=== PATIENT | female | born 1955 | race African-American/Black ===

== ENCOUNTER → 2016-10-25 | Outpatient (CLI) | payer MEDICAID ==
[2016-06-26 02:26] VITALS: BP 121/74
== END ==
LOC: LAB 11:59
PROVIDERS: ATTEND Nurse Practitioner Family
DX: R56.9 Unspecified convulsions (principal)
CPT/HCPCS: 36415; 80185

== ENCOUNTER → 2016-11-07 | Outpatient (CLI) | payer MEDICAID ==
[2016-06-26 02:26] VITALS: BP 121/74
== END ==
LOC: RT 09:31
PROVIDERS: ATTEND Nurse Practitioner Family
DX: R56.9 Unspecified convulsions (principal)
CPT/HCPCS: 95819

== ENCOUNTER 2016-11-22 12:57 | Emergency (ER) | payer MEDICAID ==
[2016-11-22 13:19] VITALS: BP 125/81; BMI 36.3
[2016-11-22] MEDS ORDERED: D50W ABBOJECT SYR IV ONE (13:19)
--- NOTE | 2016-11-22 13:26 | DR.HYPOGLY ---
HPI - Time Seen Time seen: 13:23 - PCP Primary Care Physician: CHRISTINA - Complaint Chief Complaint:: PT BROUGHT IN BY EMS. EMS STATES PT'S BS NOTED TO BE 40. PT HAS FALLEN AND HIT HER HEAD, NECK, AND RT SHOULDER. EMS ADMINISTERED ORAL GLUCOSE. - Nurses notes reviewed Nurses Notes Review: Yes - Source History Provided: Family Member, EMS - Mode of Arrival Mode of Arrival: EMS - Timing Onset of Chief Complaint: 11/22/16 Came on: Suddenly - Duration Duration: Constant How lon Duration: Minutes - Severity Blood sugar (if known): 40 - Context [place]: Found disoriented Symptoms: Confusion History of: Diabetes Prehospital care: Glucagon - Modifying factors Improves: D50 - Associated signs and symptoms Associated signs and symptoms: None - Other History Other history: complaint of right shoulder, head and neck pain PMH - PMH Past Medical History: Yes Past Medical History: Arthritis, CVA, Dyslipidemia, Gout, Hypertension, Seizures Past Surgical History: Yes 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 - Family History History of Family Medical Conditions: Yes Family Medical History: Hypertension - Social History Does any household member use tobacco: No Alcohol Use: None Do you use any recreational Drugs:: No Lives With: Family Lives Where: Home - infectious screening In the last 2 months have you had wt loss of >10#?: NO Have you had fever, night sweats or hemotysis?: No Have you traveled outside the country in the last 6 months?: No Isolation: Standard ROS - Review of Systems Constitutional: No Symptoms Reported Eyes: No Symptoms Reported ENTM: No Symptoms Reported Respiratoy: No Symptoms Reported Cardiovascular: No Symptoms Reported Gastrointestinal/Abdominal: No Symptoms Reported Genitourinary: No Symptoms Reported Neurological: No Symptoms Reported Musculoskeletal: Neck Pain, Shoulder (right shoulder pain from fall) Integumentary: No Symptoms Reported Hematologic/Lymphatic: No Symptoms Reported Endocrine: No Symptoms Reported Psychiatric: Depression PE - Vital Signs Vitals: Temperature 97.6 F Pulse Rate 64 Respiratory Rate 16 Blood Pressure [Right Arm] 138/84 Blood Pressure [Left Arm] 121/74 Blood Pressure 125/81 O2 Sat by Pulse Oximetry 98 - General Limitations: No Limitations General Appearance: Alert - Eyes Eye exam: Normal Appearance, EOMI. negative: Scleral Icterus, Conjunctival Injection Pupils: Regular, Round: Bilateral Sclera/Conjunctival: Normal Inspection: Bilateral - ENT ENT Exam: Normal Exam Nose Exam: Normal Nose Exam Mouth Exam: Normal Inspection Throat Exam: Normal Inspection - Neck Neck Exam: Normal Inspection, Full ROM, Trachea Midline - Chest Chest Inspection: Normal Inspection - Respiratory Respiratory Exam: negative: Accessory Muscle Use, Respiratory Distress Respiratory Exam: Bilateral Clear to Auscultation - Cardiovascular Cardiovascular Exam: Regular Rate - Abdominal Exam Abdominal Exam: Normal Inspection - Extremities Extremities Exam: Normal Inspection, Full ROM - Neurologic Neurological Exam: Alert, Oriented X3, CN II-XII Intact Patient Oriented To: Person, Place, Time Cranial Nerve Exam: EOM Function (II, III, IV, ): Normal, Facial Palsy (VII): Normal, Gag reflex (XI): Normal, Spinal Accessory Function (XI): Normal - Psychiatric Psychiatric Exam: Depressed - Skin Skin Exam: Intact, Normal Color Course - Treatment Treatment: glucose at 104 prior to D50. ROR - XRAY XRAY Interpreted by: Radiologist XRAY Findings: CT head,neck no fx or bleed. Right shoulder no fx - Diagnosis Discharge Problem: Hypoglycemia Contusion Qualifiers: Encounter type: initial encounter Contusion area: head Contusion of head detail : scalp Qualified Code(s): S00.03XA - Contusion of scalp, initial encounter - Discharge Plan Condition: Stable Prescriptions: Ibuprofen [Motrin Tab 800 mg] 800 mg PO Q8H PRN #30 tab PRN Reason: Pain/Inflammation - Follow ups/Referrals Follow ups/Referrals: Sunni Emery [Primary Care Provider] - 3 days - Instructions
--- NOTE | 2016-11-22 13:52 | RAD ---
Right shoulder three views Indication: Pain after fall. Findings: There is no cortical lucency or malalignment. The glenohumeral acromioclavicular joints ar e intact. Impression: No acute right shoulder fracture. Mild degenerative changes present. Reported By:
--- NOTE | 2016-11-22 14:05 | CT ---
STUDY: CT HEAD WITHOUT CONTRAST HISTORY: Fall. Hit head. COMPARISON: June 25, 2016. TECHNIQUE: Multiple axial images of the head were obtained from the skull base to the vertex without administration of IV contrast. Automated exposure control (AEC) was utilized to adjust the MA and/o r kV. Findings: The sulci, cisterns and ventricles are prominent consistent with diffuse volume loss. There are confluent and scattered foci of low attenuation in the periventricular and subcortical whi te matter of both hemispheres. This is a nonspecific finding which likely represents microangiopathi c change in a patient of this age. There are old lacunar infarcts in the basal ganglia bilaterally. There is no evidence of acute miya torial infarction, hemorrhage, mass, mass effect or midline shift. There are no abnormal extra-axial fluid collections. There is no evidence of acute osseous abnormality or significant soft tissue swelling. IMPRESSION: 1. No evidence of acute intracranial abnormality. 2. Nonspecific white matter change and volume loss as described. 3. Old lacunar infarcts in the basal ganglia bilaterally. 4. If there remains strong clinical concern for acute intracranial abnormality, then an MRI examinat ion should be considered for further evaluation. Reported By:
[2016-11-22] MEDS ORDERED: D50W ABBOJECT SYR ONE (14:11)
--- NOTE | 2016-11-22 14:56 | CT ---
HISTORY: Neck pain and injury. Study: CT cervical spine without contrast Comparison: none. Technique: Multiple axial images of the C-spine were obtained without the administration of IV cont rast. Sagittal and coronal reformats were performed and reviewed. Findings: There is straightening/reversal of the normal cervical lordosis No evidence for acute fracture or s ubluxation can be identified. No central canal compromise by bony osteophyte formation or soft tiss ue components can be identified. There is mild to moderate, diffuse, cervical spondylosis and diffus e, mild to moderate cervical facet joint DJD observed. No locked facet joint is seen. There is no vi sible subluxation or posterior element abnormality of the cervical spine. No lytic bony lesions or e ndplate erosive changes are seen. The surrounding paraspinous and C-spine soft tissues are unremarka ble in their noncontrasted appearance. IMPRESSION: 1. Negative CT exam of the cervical spine for compression fracture or subluxation. 2. Mild to moderate cervical spondylosis and degenerative facet joint DJD. Reported By:
== END 2016-11-22 15:40 | disposition home or self-care (01) ==
LOC: ER 12:57
DX: S00.03XA Contusion of scalp, initial encounter (principal); E16.2 Hypoglycemia, unspecified; M47.812 Spondylosis without myelopathy or radiculopathy, cervical region; W19.XXXA Unspecified fall, initial encounter; Y92.9 Unspecified place or not applicable; R51 Headache
CPT/HCPCS: 70450; 72125; 73030; 96365; 96374; 99283; A4222; J3490

== ENCOUNTER → 2016-11-28 | Outpatient (CLI) | payer MEDICAID ==
[2016-11-22 13:19] VITALS: BP 125/81
[2016-11-28 10:55] LABS: BASOPHILS % (AUTO) 0.7 % (0.2-1.0); EOSINOPHILS # (AUTO) 0.1 x10^3/uL (0.0-0.2); EOSINOPHILS % (AUTO) 2.1 % (0.9-2.9); HEMOGLOBIN 12.7 g/dL (12.0-16.0); LYMPHOCYTES # (AUTO) 2.5 X10^3/uL (1.3-2.9); LYMPHOCYTES % (AUTO) 38.6 % (21.0-51.0); MEAN CORPUSCULAR HEMOGLOBIN 31.9 pg (27.0-34.0); MEAN CORPUSCULAR HGB CONC 32.5 g/dL (33.0-35.0); MEAN CORPUSCULAR VOLUME 98.2 fL (80.0-100.0); MEAN PLATELET VOLUME 9.6 fL (7.4-11.0); MONOCYTES # (AUTO) 0.6 x10^3/uL (0.3-0.8); MONOCYTES % (AUTO) 9.4 % (0.0-13.0); NEUTROPHILS # (AUTO) 3.1 x10^3/uL (2.2-4.8); NEUTROPHILS % (AUTO) 49.2 % (42.0-75.0); PLATELET COUNT 165 X10^3/uL (150.0-450.0); RED BLOOD COUNT 3.97 X10^6/uL (3.5-5.4); RED CELL DISTRIBUTION WIDTH 14.6 % (11.6-16.5); WHITE BLOOD COUNT 6.4 X10^3/uL (3.6-10.0)
[2016-11-28 11:08] LABS: ALANINE AMINOTRANSFERASE 14 Units/L (12-78); ALBUMIN 2.7 g/dL (3.4-5.0); ALKALINE PHOSPHATASE 205 Units/L (46-116); ASPARTATE AMINO TRANSFERASE 16 Units/L (15-37); BLOOD UREA NITROGEN 12 mg/dL (7-18); CALCIUM 8.8 mg/dL (8.5-10.1); CHLORIDE 106 mmol/L (98-107); CHOL/HDL RATIO 4.3 (0.0-5.0); CHOLESTEROL 192 mg/dL (0-200); COR CA(FOR HYPOALB) 9.8 mg/dL (8.5-10.1); CREATININE 0.81 mg/dL (0.55-1.02); GLUCOSE 91 mg/dL (65-99); HDL CHOLESTEROL 45 mg/dL (40-60); SODIUM 144 mmol/L (136-145); TRIGLYCERIDES 64 mg/dL (0-150); URIC ACID 2.9 mg/dL (2.6-6.0); eGFR BLACK RACES > 60 (>60); eGFR NON BLACK RACES > 60 (>60)
== END ==
LOC: LAB 10:31
PROVIDERS: ATTEND Nurse Practitioner Family
DX: D52.0 Dietary folate deficiency anemia (principal); I10 Essential (primary) hypertension; E56.8 Deficiency of other vitamins; E78.2 Mixed hyperlipidemia; G40.802 Other epilepsy, not intractable, without status epilepticus; Z87.39 Personal history of other diseases of the musculoskeletal system and connective tissue; Z86.73 Personal history of transient ischemic attack (TIA), and cerebral infarction without residual deficits
CPT/HCPCS: 36415; 80053; 80061; 80185; 82306; 84550; 85025; 85610

== ENCOUNTER 2017-02-26 20:24 | Emergency (ER) | payer MEDICAID ==
[2017-02-26 20:41] VITALS: BP 115/68; BMI 29.1
--- NOTE | 2017-02-26 20:44 | DR.GENAD ---
HPI - PCP Primary Care Physician: ERNESTOLS - Complaint/Symptoms Chief Complaint Doctors Comments: She denies fever. She denies cardiopulmonary disease. Chief Complaint:: CHEST PAIN FOR LAST 2 DAYS, NAUSEA, STOMACH HURTS, CHILLS, SOB. PATIENT TENDER WHEN CHEST PALPATED. 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 - Family History History of Family Medical Conditions: Yes Family Medical History: Hypertension - Social History Do you use any recreational Drugs:: No Lives Where: Home - infectious screening Have you traveled outside the country in the last 6 months?: No Isolation: Standard ROS - Review of Systems Constitutional: negative: Diaphoresis Eyes: No Symptoms Reported ENTM: No Symptoms Reported Respiratoy: No Symptoms Reported Cardiovascular: No Symptoms Reported Gastrointestinal/Abdominal: No Symptoms Reported Genitourinary: No Symptoms Reported Neurological: No Symptoms Reported Musculoskeletal: No Symptoms Reported Integumentary: No Symptoms Reported Hematologic/Lymphatic: No Symptoms Reported Endocrine: No Symptoms Reported Psychiatric: No Symptoms Reported All Other Systems: Reviewed and Negative PE - Vital Signs Vitals: Temperature 99.0 F Pulse Rate 75 Respiratory Rate 16 Blood Pressure [Right Arm] 138/84 Blood Pressure [Left Arm] 121/74 Blood Pressure 115/68 O2 Sat by Pulse Oximetry 100 - General Limitations: No Limitations General Appearance: Alert, In No Apparent Distress - Head Head Exam: Normal Inspection, Atraumatic - Eyes Eye exam: Normal Appearance, PERRL, EOMI - ENT ENT Exam: Normal Exam, Normal Oropharynx External Ear Exam: Normal External Inspection TM/Canal Exam: Bilateral Normal Nose Exam: Normal Nose Exam Mouth Exam: Normal Inspection, Drooling Throat Exam: Normal Inspection - Neck Neck Exam: Normal Inspection, Full ROM - Chest Chest Inspection: Normal Inspection, Symmetric Chest Wall Rise - Respiratory Respiratory Exam: Normal Lung Sounds Bilat Respiratory Exam: Bilateral Clear to Auscultation - Cardiovascular Cardiovascular Exam: Regular Rate, Normal Rhythm - Abdominal Exam Abdominal Exam: Normal Inspection, Normal Bowel Sounds Abdominal Tenderness: negative: RUQ, RLQ, LUQ, LLQ, Epigastrium, Suprapubic, Diffuse, Mild, Moderate, Severe, Other - Back Back Exam: Normal Inspection - Neurologic Neurological Exam: Alert, Oriented X3, CN II-XII Intact - Psychiatric Psychiatric Exam: Normal Affect, Normal Mood - Skin Skin Exam: Warm, Dry, Intact Course - Reevaluation 1st: Unchanged ROR - Labs Reviewed Result Diagrams: 02/26/17 20:59 02/26/17 20:59 Laboratory: WBC 7.6 X10^3/uL (3.6-10.0) 02/26/17 20:59 RBC 4.07 X10^6/uL (3.5-5.4) 02/26/17 20:59 Hgb 13.4 g/dL (12.0-16.0) 02/26/17 20:59 Hct 40.2 % (36.0-47.0) 02/26/17 20:59 MCV 98.9 fL (80.0-100.0) 02/26/17 20:59 MCH 32.8 pg (27.0-34.0) 02/26/17 20:59 MCHC 33.2 g/dL (33.0-35.0) 02/26/17 20:59 RDW 13.9 % (11.6-16.5) 02/26/17 20:59 Plt Count 167 X10^3/uL (150.0-450.0) 02/26/17 20:59 MPV 10.4 fL (7.4-11.0) 02/26/17 20:59 Neut % 44.1 % (42.0-75.0) 02/26/17 20:59 Lymph % 40.0 % (21.0-51.0) 02/26/17 20:59 [place] % 12.5 % (0.0-13.0) 02/26/17 20:59 Eos % 2.8 % (0.9-2.9) 02/26/17 20:59 Baso % 0.6 % (0.2-1.0) 02/26/17 20:59 Neut # 3.4 x10^3/uL (2.2-4.8) 02/26/17 20:59 Lymph # 3.1 X10^3/uL (1.3-2.9) H 02/26/17 20:59 [place] # 1.0 x10^3/uL (0.3-0.8) H 02/26/17 20:59 Eos # 0.2 x10^3/uL (0.0-0.2) 02/26/17 20:59 Baso # 0.0 X10^3/uL (0.0-0.1) 02/26/17 20:59 Absolute Nucleated RBC 0.0 /100WBC 02/26/17 20:59 Sodium 143 mmol/L (136-145) 02/26/17 20:59 Corrected Sodium TNP 02/26/17 20:59 Potassium 3.4 mmol/L (3.5-5.1) L 02/26/17 20:59 Chloride 106 mmol/L (98-107) 02/26/17 20:59 Carbon Dioxide 27.5 mmol/L (21-32) 02/26/17 20:59 BUN 16 mg/dL (7-18) 02/26/17 20:59 Creatinine 0.83 mg/dL (0.55-1.02) 02/26/17 20:59 Est GFR (MDRD) Af Amer > 60 (>60) 02/26/17 20:59 Est GFR (MDRD) Non-Af > 60 (>60) 02/26/17 20:59 Glucose 103 mg/dL (65-99) H 02/26/17 20:59 Calcium 8.6 mg/dL (8.5-10.1) 02/26/17 20:59 Corrected Calcium 9.4 mg/dL (8.5-10.1) 02/26/17 20:59 Total Bilirubin 0.10 mg/dL (0.2-1.0) L 02/26/17 20:59 AST 17 Units/L (15-37) 02/26/17 20:59 ALT 16 Units/L (12-78) 02/26/17 20:59 Alkaline Phosphatase 238 Units/L (46-116) H 02/26/17 20:59 C-Reactive Protein 52.30 mg/L (0-3.0) H 02/26/17 20:59 Total Protein 8.3 g/dL (6.4-8.2) H 02/26/17 20:59 Albumin 3.0 g/dL (3.4-5.0) L 02/26/17 20:59 Globulin 5.3 g/dL (2.5-4.5) H 02/26/17 20:59 Albumin/Globulin Ratio 0.6 Ratio (1.1-2.1) L 02/26/17 20:59 - XRAY XRAY Interpreted by: Radiologist (Chest: No acute abnormality, Abdomen: Fibroid uterus, no acute disease) - Diagnosis Discharge Problem: Cough - Discharge Plan Condition: Stable - Follow ups/Referrals Follow ups/Referrals: GEENA LUNA [Primary Care Provider] - 3 days - Instructions
[2017-02-26 21:10] LABS: BASOPHILS % (AUTO) 0.6 % (0.2-1.0); EOSINOPHILS # (AUTO) 0.2 x10^3/uL (0.0-0.2); EOSINOPHILS % (AUTO) 2.8 % (0.9-2.9); HEMATOCRIT 40.2 % (36.0-47.0); HEMOGLOBIN 13.4 g/dL (12.0-16.0); LYMPHOCYTES # (AUTO) 3.1 X10^3/uL (1.3-2.9); MEAN CORPUSCULAR HEMOGLOBIN 32.8 pg (27.0-34.0); MEAN CORPUSCULAR HGB CONC 33.2 g/dL (33.0-35.0); MEAN CORPUSCULAR VOLUME 98.9 fL (80.0-100.0); MEAN PLATELET VOLUME 10.4 fL (7.4-11.0); MONOCYTES % (AUTO) 12.5 % (0.0-13.0); NEUTROPHILS # (AUTO) 3.4 x10^3/uL (2.2-4.8); NEUTROPHILS % (AUTO) 44.1 % (42.0-75.0); PLATELET COUNT 167 X10^3/uL (150.0-450.0); RED BLOOD COUNT 4.07 X10^6/uL (3.5-5.4); RED CELL DISTRIBUTION WIDTH 13.9 % (11.6-16.5); WHITE BLOOD COUNT 7.6 X10^3/uL (3.6-10.0)
[2017-02-26 21:25] LABS: BLOOD UREA NITROGEN 16 mg/dL (7-18); CALCIUM 8.6 mg/dL (8.5-10.1); CARBON DIOXIDE 27.5 mmol/L (21-32); CHLORIDE 106 mmol/L (98-107); CREATININE 0.83 mg/dL (0.55-1.02); GLUCOSE 103 mg/dL (65-99); SODIUM 143 mmol/L (136-145)
[2017-02-26 21:37] LABS: ALANINE AMINOTRANSFERASE 16 Units/L (12-78); ALKALINE PHOSPHATASE 238 Units/L (46-116); ASPARTATE AMINO TRANSFERASE 17 Units/L (15-37); TOTAL PROTEIN 8.3 g/dL (6.4-8.2); eGFR BLACK RACES > 60 (>60); eGFR NON BLACK RACES > 60 (>60)
[2017-02-26 21:39] LABS: COR CA(FOR HYPOALB) 9.4 mg/dL (8.5-10.1)
--- NOTE | 2017-02-26 21:39 | RAD ---
HISTORY: Chest pain and nausea Study: Acute abdominal series Comparison: Chest x-ray of June 2016 Findings: The trachea is midline. The cardiac silhouette is unremarkable. The lungs are clear without focal infiltrate or effusion. The bony thorax is unremarkable. Flat plate and upright evaluation of the abdomen demonstrates a normal bowel gas pattern. There is a n IVC filter. There are right pelvic calcified uterine fibroids up to 1.75 centimeters diameter.. N o pathological soft tissue mass or calcification can be observed. The bony structures are grossly i ntact. IMPRESSION: 1. No acute cardiopulmonary disease. 2. Fibroid uterus, no acute disease. Reported By:
== END 2017-02-26 21:58 | disposition home or self-care (01) ==
LOC: ER 20:27
DX: R05 Cough (principal); D25.9 Leiomyoma of uterus, unspecified
CPT/HCPCS: 36415; 74022; 80053; 85025; 86140; 93005; 93010; 99283

== ENCOUNTER → 2017-03-08 | Outpatient (CLI) | payer MEDICAID ==
[2017-02-26 20:41] VITALS: BP 115/68
[2017-03-08 11:36] LABS: BASOPHILS % (AUTO) 0.5 % (0.2-1.0); EOSINOPHILS # (AUTO) 0.2 x10^3/uL (0.0-0.2); EOSINOPHILS % (AUTO) 2.3 % (0.9-2.9); HEMATOCRIT 39.5 % (36.0-47.0); HEMOGLOBIN 13.1 g/dL (12.0-16.0); LYMPHOCYTES # (AUTO) 2.5 X10^3/uL (1.3-2.9); LYMPHOCYTES % (AUTO) 37.9 % (21.0-51.0); MEAN CORPUSCULAR HEMOGLOBIN 32.6 pg (27.0-34.0); MEAN CORPUSCULAR HGB CONC 33.3 g/dL (33.0-35.0); MONOCYTES # (AUTO) 0.7 x10^3/uL (0.3-0.8); MONOCYTES % (AUTO) 10.1 % (0.0-13.0); NEUTROPHILS # (AUTO) 3.3 x10^3/uL (2.2-4.8); NEUTROPHILS % (AUTO) 49.2 % (42.0-75.0); PLATELET COUNT 179 X10^3/uL (150.0-450.0); RED BLOOD COUNT 4.03 X10^6/uL (3.5-5.4); RED CELL DISTRIBUTION WIDTH 13.9 % (11.6-16.5); WHITE BLOOD COUNT 6.7 X10^3/uL (3.6-10.0)
[2017-03-08 11:41] LABS: CHLORIDE 106 mmol/L (98-107); SODIUM 141 mmol/L (136-145)
[2017-03-08 11:57] LABS: ALANINE AMINOTRANSFERASE 18 Units/L (12-78); ALKALINE PHOSPHATASE 237 Units/L (46-116); ASPARTATE AMINO TRANSFERASE 20 Units/L (15-37); BLOOD UREA NITROGEN 14 mg/dL (7-18); CALCIUM 8.7 mg/dL (8.5-10.1); CARBON DIOXIDE 31.1 mmol/L (21-32); COR CA(FOR HYPOALB) 9.5 mg/dL (8.5-10.1); CREATININE 0.89 mg/dL (0.55-1.02); GLUCOSE 101 mg/dL (65-99); TOTAL PROTEIN 8.4 g/dL (6.4-8.2); URIC ACID 3.2 mg/dL (2.6-6.0); eGFR BLACK RACES > 60 (>60); eGFR NON BLACK RACES > 60 (>60)
[2017-03-08 12:54] LABS: ERYTHROCYTE SEDIMENTATION RATE 66 MM/HOUR (0-20)
[2017-03-13 06:44] LABS: LEVETIRACETAM 16 ug/mL (12-46); VITAMIN D 25 OH 30 ng/mL (30-80)
== END | disposition home or self-care (01) | DRG 951 ==
LOC: LAB 10:55
PROVIDERS: ATTEND Nurse Practitioner Family
DX: Z76.0 Encounter for issue of repeat prescription (principal); Z51.81 Encounter for therapeutic drug level monitoring; I10 Essential (primary) hypertension; M10.9 Gout, unspecified; D52.0 Dietary folate deficiency anemia; E56.8 Deficiency of other vitamins; G40.802 Other epilepsy, not intractable, without status epilepticus
CPT/HCPCS: 36415; 80053; 80177; 80185; 82306; 82607; 82746; 84550; 85025; 85610; 85652; 86140

== ENCOUNTER → 2017-03-15 | Outpatient (CLI) | payer MEDICAID ==
[2017-02-26 20:41] VITALS: BP 115/68
[2017-03-15 13:16] LABS: BILIRUBIN,URINE NEGATIVE (NEGATIVE); BLOOD/HEMOGLOBIN,URINE 2+ (NEGATIVE); GLUCOSE, URINE NEGATIVE (NEGATIVE); KETONES,URINE NEGATIVE (NEGATIVE); LEUKOCYTE ESTERASE ,URINE NEGATIVE (NEGATIVE); NITRITES,URINE NEGATIVE (NEGATIVE); PROTEIN,URINE NEGATIVE (NEGATIVE); UROBILINOGEN,URINE NORMAL (NORMAL)
[2017-03-15 13:25] LABS: APPEARANCE,URINE SLIGHTLY HAZY (CLEAR); COLOR,URINE YELLOW (YELLOW)
[2017-03-15 13:26] LABS: BACTERIA,URINE NEGATIVE /HPF (NEGATIVE); RBC,URINE 0 - 2 /HPF (NEGATIVE); SQUAMOUS EPITHELIAL CELL,UR MODERATE /HPF (NEGATIVE)
[2017-03-15 14:33] LABS: ALKALINE PHOSPHATASE 250 Units/L (46-116); TSH (3RD GENERATION) 2.781 uIU/mL (0.358-3.74)
[2017-03-15 15:17] LABS: IRON 107 ug/dL (50-175); TOTAL IRON BINDING CAPACITY 221 ug/dL (250-450); TRANSFERRIN 171 mg/dL (202-364)
[2017-03-15 15:33] LABS: RHEUMATOID FACTOR NEGATIVE (NEGATIVE)
[2017-03-21 07:33] LABS: ANTI-NUCLEAR ANTIBODY TEST None Detected (None Detected); RNP ANTIBODY 0 AU/mL (0-40)
[2017-03-21 07:34] LABS: METHYLMALONIC ACID 0.12 umol/L (0.00-0.40)
== END ==
LOC: LAB 12:56
PROVIDERS: ATTEND Nurse Practitioner Family
DX: R70.0 Elevated erythrocyte sedimentation rate (principal); R79.82 Elevated C-reactive protein (CRP); R53.83 Other fatigue; R74.8 Abnormal levels of other serum enzymes
CPT/HCPCS: 36415; 81001; 82607; 82728; 82746; 83540; 83550; 83918; 84075; 84443; 84466; 85652; 86140; 86160; 86200; 86225; 86235; 86308; 86430; 87086

== ENCOUNTER → 2017-04-25 | Outpatient (CLI) | payer MEDICAID ==
--- NOTE | 2017-04-25 14:51 | CT ---
CT brain without contrast Indication: Frequent falls Comparison: 11/22/2016 Technique: Multiple axial images of the brain were obtained from the skull base to the vertex without administra tion of IV contrast. Coronal and sagittal images were also provided. Radiation dose reduction techniques were performed utilizing adjustment for MA/kVP based on patient body size. Findings: No change in mild generalized cerebral atrophy with confluent bilateral periventricular and deep whit e matter hypoattenuation likely representing sequela chronic microvascular ischemic disease. There is fairly severe global atrophy of the cerebellar hemispheres unchanged from prior exam. No acute intraparenchymal hemorrhage or mass can be identified. No extra-axial fluid collections are seen. No alteration in the attenuation of the brain parenchyma can be identified to suggest acute o r subacute ischemic change. The ventricular system is symmetric and nondilated. The extracranial st ructures are grossly unremarkable. IMPRESSION: 1. No acute intracranial process is identified. 2. Fairly severe generalized bilateral cerebellar hemispheric atrophy, etiology is nonspecific and ca n be seen in with multiple etiologies, clinical correlation for chronic ischemic disease, alcohol abu se or neuroletpic medications is needed. Given the degree of cerebellar atrophy this may explain celine ent's frequent falls. 3. Stable generalized cerebral atrophy and bilateral periventricular deep white matter hypoattenuatio n likely represent sequela chronic microvascular ischemic disease. Reported By:
== END | disposition home or self-care (01) ==
LOC: RAD 14:02
PROVIDERS: ATTEND Nurse Practitioner Family
DX: R29.6 Repeated falls (principal); G32.81 Cerebellar ataxia in diseases classified elsewhere
CPT/HCPCS: 70450

== ENCOUNTER → 2017-04-30 | Outpatient (CLI) | payer MEDICAID ==
--- NOTE | 2017-05-01 16:04 | RAD ---
Left knee two views Indication: Bilateral knee pain. Findings: There is no cortical lucency, malalignment or effusion. Minimal patellofemoral DJD suggeste d. Impression: No acute left knee abnormality. Reported By:
--- NOTE | 2017-05-01 16:05 | RAD ---
Right knee two views Indication: Bilateral knee pain. Findings: There is no effusion, cortical lucency or malalignment. Impression: No acute right knee abnormality. Minimal degenerative change. Reported By:
== END ==
LOC: RAD 08:56
PROVIDERS: ATTEND Nurse Practitioner Family
DX: M25.561 Pain in right knee (principal); M25.562 Pain in left knee
CPT/HCPCS: 73560

== ENCOUNTER → 2017-06-25 | Outpatient (CLI) | payer MEDICAID ==
[2017-06-25 12:18] LABS: BASOPHILS % (AUTO) 0.7 % (0.2-1.0); EOSINOPHILS # (AUTO) 0.2 x10^3/uL (0.0-0.2); EOSINOPHILS % (AUTO) 2.5 % (0.9-2.9); HEMATOCRIT 37.7 % (36.0-47.0); HEMOGLOBIN 12.5 g/dL (12.0-16.0); LYMPHOCYTES # (AUTO) 2.1 X10^3/uL (1.3-2.9); LYMPHOCYTES % (AUTO) 33.9 % (21.0-51.0); MEAN CORPUSCULAR HEMOGLOBIN 32.8 pg (27.0-34.0); MEAN CORPUSCULAR HGB CONC 33.1 g/dL (33.0-35.0); MEAN CORPUSCULAR VOLUME 99.2 fL (80.0-100.0); MEAN PLATELET VOLUME 9.7 fL (7.4-11.0); MONOCYTES # (AUTO) 0.6 x10^3/uL (0.3-0.8); MONOCYTES % (AUTO) 10.5 % (0.0-13.0); NEUTROPHILS # (AUTO) 3.2 x10^3/uL (2.2-4.8); NEUTROPHILS % (AUTO) 52.4 % (42.0-75.0); PLATELET COUNT 163 X10^3/uL (150.0-450.0); RED CELL DISTRIBUTION WIDTH 14.1 % (11.6-16.5); WHITE BLOOD COUNT 6.1 X10^3/uL (3.6-10.0)
[2017-06-25 12:53] LABS: ERYTHROCYTE SEDIMENTATION RATE 68 MM/HOUR (0-20)
[2017-06-25 13:10] LABS: CARBAMAZEPINE (TEGRETOL) < 2.0 ug/mL (4-12)
[2017-06-25 14:46] LABS: ALANINE AMINOTRANSFERASE 15 Units/L (12-78); ALBUMIN 2.7 g/dL (3.4-5.0); ALKALINE PHOSPHATASE 214 Units/L (46-116); ASPARTATE AMINO TRANSFERASE 22 Units/L (15-37); BLOOD UREA NITROGEN 11 mg/dL (7-18); CHLORIDE 106 mmol/L (98-107); CHOL/HDL RATIO 2.7 (0.0-5.0); CHOLESTEROL 157 mg/dL (0-200); CREATININE 0.64 mg/dL (0.55-1.02); HDL CHOLESTEROL 59 mg/dL (40-60); SODIUM 141 mmol/L (136-145); TOTAL PROTEIN 7.5 g/dL (6.4-8.2); URIC ACID 2.9 mg/dL (2.6-6.0); eGFR BLACK RACES > 60 (>60); eGFR NON BLACK RACES > 60 (>60)
[2017-06-25 23:12] LABS: CARBON DIOXIDE 24.4 mmol/L (21-32)
[2017-06-26 00:07] LABS: CALCIUM 8.8 mg/dL (8.5-10.1); COR CA(FOR HYPOALB) 9.8 mg/dL (8.5-10.1); TRIGLYCERIDES 75 mg/dL (0-150)
[2017-07-01 07:07] LABS: VITAMIN D 25 OH 30 ng/mL (30-80)
== END ==
LOC: LAB 11:44
PROVIDERS: ATTEND Nurse Practitioner Family
DX: Z79.01 Long term (current) use of anticoagulants (principal); R26.89 Other abnormalities of gait and mobility; E55.9 Vitamin D deficiency, unspecified; Z86.73 Personal history of transient ischemic attack (TIA), and cerebral infarction without residual deficits; M10.9 Gout, unspecified; E78.2 Mixed hyperlipidemia; D52.0 Dietary folate deficiency anemia; G40.909 Epilepsy, unspecified, not intractable, without status epilepticus
CPT/HCPCS: 36415; 80053; 80061; 80156; 80185; 82306; 82607; 82746; 83918; 84550; 85025; 85610; 85652; 86140

== ENCOUNTER → 2017-07-04 | Outpatient (CLI) | payer MEDICAID ==
[2017-07-04 16:06] LABS: BILIRUBIN,URINE NEGATIVE (NEGATIVE); BLOOD/HEMOGLOBIN,URINE 2+ (NEGATIVE); GLUCOSE, URINE NEGATIVE (NEGATIVE); KETONES,URINE NEGATIVE (NEGATIVE); LEUKOCYTE ESTERASE ,URINE 1+ (NEGATIVE); NITRITES,URINE NEGATIVE (NEGATIVE); PROTEIN,URINE 1+ (NEGATIVE); UROBILINOGEN,URINE 1+ (NORMAL)
[2017-07-04 16:17] LABS: APPEARANCE,URINE SLIGHTLY HAZY (CLEAR); BACTERIA,URINE NEGATIVE /HPF (NEGATIVE); COLOR,URINE YELLOW (YELLOW); SQUAMOUS EPITHELIAL CELL,UR NUMEROUS /HPF (NEGATIVE)
== END | disposition home or self-care (01) | DRG 948 ==
LOC: LAB 15:10
PROVIDERS: ATTEND Nurse Practitioner Family
DX: R70.0 Elevated erythrocyte sedimentation rate (principal); R79.82 Elevated C-reactive protein (CRP); R74.8 Abnormal levels of other serum enzymes; Z51.81 Encounter for therapeutic drug level monitoring; Z79.01 Long term (current) use of anticoagulants
CPT/HCPCS: 36415; 81001; 82615; 84075; 84080; 84443; 85610; 86140; 86141

== ENCOUNTER → 2017-08-06 | Outpatient (CLI) | payer MEDICAID ==
[2017-08-06 16:00] LABS: APPEARANCE,URINE SLIGHTLY HAZY (CLEAR); BLOOD/HEMOGLOBIN,URINE 2+ (NEGATIVE); COLOR,URINE YELLOW (YELLOW); GLUCOSE, URINE NEGATIVE (NEGATIVE); KETONES,URINE NEGATIVE (NEGATIVE); PROTEIN,URINE 1+ (NEGATIVE)
[2017-08-06 16:01] LABS: BACTERIA,URINE 2+ /HPF (NEGATIVE); BILIRUBIN,URINE NEGATIVE (NEGATIVE); LEUKOCYTE ESTERASE ,URINE 1+ (NEGATIVE); NITRITES,URINE NEGATIVE (NEGATIVE); SQUAMOUS EPITHELIAL CELL,UR MODERATE /HPF (NEGATIVE); UROBILINOGEN,URINE 1+ (NORMAL)
== END ==
LOC: LAB 13:51
PROVIDERS: ATTEND Nurse Practitioner Family
DX: Z51.81 Encounter for therapeutic drug level monitoring (principal); N39.0 Urinary tract infection, site not specified
CPT/HCPCS: 36415; 81001; 85610

== ENCOUNTER → 2017-08-09 | Outpatient (CLI) | payer MEDICAID ==
--- NOTE | 2017-08-09 13:43 | RAD ---
Examination: PA chest History: Cough and fever Comparison 02/26/2017 Findings: Continued normal heart size with clear lungs and pleural spaces. Impression: No acute abnormality demonstrated. Reported By:
[2017-08-09 13:55] LABS: BASOPHILS % (AUTO) 0.5 % (0.2-1.0); EOSINOPHILS # (AUTO) 0.3 x10^3/uL (0.0-0.2); EOSINOPHILS % (AUTO) 3.7 % (0.9-2.9); HEMOGLOBIN 14.3 g/dL (12.0-16.0); LYMPHOCYTES # (AUTO) 2.8 X10^3/uL (1.3-2.9); LYMPHOCYTES % (AUTO) 30.7 % (21.0-51.0); MEAN CORPUSCULAR HEMOGLOBIN 33.1 pg (27.0-34.0); MEAN CORPUSCULAR HGB CONC 33.3 g/dL (33.0-35.0); MEAN CORPUSCULAR VOLUME 99.5 fL (80.0-100.0); MEAN PLATELET VOLUME 10.7 fL (7.4-11.0); MONOCYTES # (AUTO) 1.2 x10^3/uL (0.3-0.8); MONOCYTES % (AUTO) 13.1 % (0.0-13.0); NEUTROPHILS # (AUTO) 4.7 x10^3/uL (2.2-4.8); PLATELET COUNT 158 X10^3/uL (150.0-450.0); RED BLOOD COUNT 4.32 X10^6/uL (3.5-5.4); RED CELL DISTRIBUTION WIDTH 13.8 % (11.6-16.5); WHITE BLOOD COUNT 9.1 X10^3/uL (3.6-10.0)
[2017-08-09 14:03] LABS: ALANINE AMINOTRANSFERASE 19 Units/L (12-78); ALBUMIN 3.1 g/dL (3.4-5.0); ALKALINE PHOSPHATASE 253 Units/L (46-116); ASPARTATE AMINO TRANSFERASE 22 Units/L (15-37); BLOOD UREA NITROGEN 12 mg/dL (7-18); CALCIUM 9.5 mg/dL (8.5-10.1); CARBON DIOXIDE 29.2 mmol/L (21-32); CHLORIDE 103 mmol/L (98-107); COR CA(FOR HYPOALB) 10.2 mg/dL (8.5-10.1); COR NA(FOR HYPERGLY) 141 mmol/L (136-145); CREATININE 1.09 mg/dL (0.55-1.02); SODIUM 141 mmol/L (136-145); eGFR BLACK RACES > 60 (>60); eGFR NON BLACK RACES 54 (>60)
== END ==
LOC: LAB 12:58
PROVIDERS: ATTEND Nurse Practitioner Family
DX: R06.2 Wheezing (principal); R05 Cough
CPT/HCPCS: 36415; 71045; 80053; 85025

== ENCOUNTER → 2017-08-15 | Outpatient (CLI) | payer MEDICAID | LOC: RAD 12:49 | PROVIDERS: ATTEND Internal Medicine Cardiovascular Disease | DX: Z79.01 Long term (current) use of anticoagulants (principal); Z86.73 Personal history of transient ischemic attack (TIA), and cerebral infarction without residual deficits | CPT/HCPCS: 36415; 85610; 93306 ==

== ENCOUNTER 2017-10-01 13:21 | Observation (INO) | payer MEDICAID ==
--- NOTE | 2017-10-01 13:54 | DR.FBACK ---
HPI - Time Seen Time seen: 17:03 (seen on arrival to room) - PCP Primary Care Physician: LANDON VILLALOBOS - HPI Comment HPI Comment: chronic low back pain with worsening over past 2-3 months. 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 HAS BEEN C/O LEG PAIN AND LOWER BACK PAIN THAT BEGAN LAST NIGHT. CUSTOM HOME INSTALLER STATES PT'S MOBILITY HAS DECLINED SIGNIFICANTLY WITHIN THE PAST FEW MONTHS. PT. 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 - Family History History of Family Medical Conditions: Yes Family Medical History: Hypertension - Social History Does patient currently use any type of tobacco product: No Have you used tobacco products in the last 12 months: No Type of Tobacco Use: None Does any household member use tobacco: No Alcohol Use: None Do you use any recreational Drugs:: No Lives With: Family Lives Where: Home - infectious screening In the last 2 months have you had wt loss of >10#?: NO Have you had fever, night sweats or hemotysis?: No Have you traveled outside the country in the last 6 months?: No Isolation: Standard ROS - Review of Systems Constitutional: Weakness, Fatigue Eyes: No Symptoms Reported ENTM: No Symptoms Reported Cardiovascular: No Symptoms Reported Gastrointestinal/Abdominal: No Symptoms Reported Genitourinary: No Symptoms Reported Neurological: Weakness, Problems Walking, Other (s/p CVA) Musculoskeletal: Back Pain, Leg Integumentary: No Symptoms Reported Hematologic/Lymphatic: No Symptoms Reported Endocrine: No Symptoms Reported Psychiatric: No Symptoms Reported All Other Systems: Reviewed and Negative PE - Vitals Vital Signs: Temp Pulse Resp BP BP BP Pulse Ox 10/01/17 13:27 97.9 F 71 17 126/83 97 02/26/17 20:38 115/68 06/26/16 02:25 121/74 04/05/15 08:00 138/84 - General Limitations: No Limitations General Appearance: Alert, In No Apparent Distress - Head Head Exam: Normal Inspection - Eyes Eye exam: Normal Appearance - ENT ENT Exam: Normal Exam - Respiratory Respiratory Exam: Normal Lung Sounds Bilat Respiratory Exam: Bilateral Clear to Auscultation - Cardiovascular Cardiovascular Exam: Regular Rate, Normal Rhythm, Normal Heart Sounds. negative : Systolic Murmur, Diastolic Murmur - Abdominal Exam Abdominal Exam: Normal Bowel Sounds, Soft. negative: Tenderness - Extremities Extremities Exam: Tenderness, Normal Capillary Refill. negative: Edema, Joint Swelling - Back Back Exam: Tenderness, Vertebral Tenderness, (R) Straight Leg Raise, (L) Straight Leg Raise, Other (no skin breakdown). negative: Full ROM, (R) CVA Tenderness, (L) CVA Tenderness - Neurological Neurological Exam: Alert, Oriented X3, Reflexes Normal. negative: Normal Gait - Psychiatric Psychiatric Exam: Normal Affect, Normal Mood, Depressed - Skin Skin Exam: Warm, Dry ROR - Labs Reviewed Laboratory Results Reviewed?: Yes (valproic acide low ) Result Diagrams: 10/01/17 14:05 10/01/17 14:05 Laboratory: WBC 7.8 X10^3/uL (3.6-10.0) 10/01/17 14:05 RBC 3.92 X10^6/uL (3.5-5.4) 10/01/17 14:05 Hgb 12.9 g/dL (12.0-16.0) 10/01/17 14:05 Hct 38.6 % (36.0-47.0) 10/01/17 14:05 MCV 98.4 fL (80.0-100.0) 10/01/17 14:05 MCH 32.9 pg (27.0-34.0) 10/01/17 14:05 MCHC 33.5 g/dL (33.0-35.0) 10/01/17 14:05 RDW 13.7 % (11.6-16.5) 10/01/17 14:05 Plt Count 186 X10^3/uL (150.0-450.0) 10/01/17 14:05 MPV 9.4 fL (7.4-11.0) 10/01/17 14:05 Neut % 64.7 % (42.0-75.0) 10/01/17 14:05 Lymph % 24.4 % (21.0-51.0) 10/01/17 14:05 [place] % 7.9 % (0.0-13.0) 10/01/17 14:05 Eos % 2.2 % (0.9-2.9) 10/01/17 14:05 Baso % 0.8 % (0.2-1.0) 10/01/17 14:05 Neut # 5.1 x10^3/uL (2.2-4.8) H 10/01/17 14:05 Lymph # 1.9 X10^3/uL (1.3-2.9) 10/01/17 14:05 [place] # 0.6 x10^3/uL (0.3-0.8) 10/01/17 14:05 Eos # 0.2 x10^3/uL (0.0-0.2) 10/01/17 14:05 Baso # 0.1 X10^3/uL (0.0-0.1) 10/01/17 14:05 Absolute Nucleated RBC 0.0 /100WBC 10/01/17 14:05 INR Target Range - 10/01/17 14:05 INR 1.58 (0.8-1.3) H 10/01/17 14:05 PTT 32.3 SECONDS (22.9-36.5) 10/01/17 14:05 PTT Comment - 10/01/17 14:05 Sodium 138 mmol/L (136-145) 10/01/17 14:05 Corrected Sodium 140 mmol/L (136-145) 10/01/17 14:05 Potassium 3.7 mmol/L (3.5-5.1) 10/01/17 14:05 Chloride 104 mmol/L (98-107) 10/01/17 14:05 Carbon Dioxide 27.2 mmol/L (21-32) 10/01/17 14:05 BUN 14 mg/dL (7-18) 10/01/17 14:05 Creatinine 0.88 mg/dL (0.55-1.02) 10/01/17 14:05 Est GFR (MDRD) Af Amer > 60 (>60) 10/01/17 14:05 Est GFR (MDRD) Non-Af > 60 (>60) 10/01/17 14:05 Glucose 178 mg/dL (65-99) H 10/01/17 14:05 Calcium 9.3 mg/dL (8.5-10.1) 10/01/17 14:05 Corrected Calcium 10.4 mg/dL (8.5-10.1) H 10/01/17 14:05 Magnesium 1.9 mg/dL (1.7-2.9) 10/01/17 14:05 Total Bilirubin 0.20 mg/dL (0.2-1.0) 10/01/17 14:05 AST 18 Units/L (15-37) 10/01/17 14:05 ALT 16 Units/L (12-78) 10/01/17 14:05 Alkaline Phosphatase 233 Units/L (46-116) H 10/01/17 14:05 Creatine Kinase 45 Units/L (26-192) 10/01/17 14:05 CK-MB (CK-2) < 1.0 ng/mL (0-4.0) 10/01/17 14:05 CK/CKMB % Calc 2.2 % (<4) 10/01/17 14:05 Troponin I < 0.02 ng/mL (0-1.5) 10/01/17 14:05 Total Protein 8.1 g/dL (6.4-8.2) 10/01/17 14:05 Albumin 2.6 g/dL (3.4-5.0) L 10/01/17 14:05 Globulin 5.5 g/dL (2.5-4.5) H 10/01/17 14:05 Albumin/Globulin Ratio 0.5 Ratio (1.1-2.1) L 10/01/17 14:05 Phenytoin 24.6 ug/mL (10-20) H 10/01/17 14:05 Valproic Acid < 3.0 ug/mL (50-100) L 10/01/17 14:05 - XRAY XRAY Interpreted by: Radiologist XRAY Findings: CT Lspine shows L4-L5 circumferential disk bulge with thecal sac effaced - Diagnosis Discharge Problem: Intractable low back pain, Weakness of both lower extremities - Discharge Plan Disposition: ADMITTED INPATIENT Condition: Stable - Follow ups/Referrals - Instructions Additional Notes - Additional Notes Additional Notes: Spoke with Dr Rosario, will obs pt overnight for pain control, setup PT, obtain MRI etc.
[2017-10-01 14:18] LABS: BASOPHILS # (AUTO) 0.1 X10^3/uL (0.0-0.1); BASOPHILS % (AUTO) 0.8 % (0.2-1.0); EOSINOPHILS # (AUTO) 0.2 x10^3/uL (0.0-0.2); EOSINOPHILS % (AUTO) 2.2 % (0.9-2.9); HEMATOCRIT 38.6 % (36.0-47.0); HEMOGLOBIN 12.9 g/dL (12.0-16.0); LYMPHOCYTES # (AUTO) 1.9 X10^3/uL (1.3-2.9); LYMPHOCYTES % (AUTO) 24.4 % (21.0-51.0); MEAN CORPUSCULAR HEMOGLOBIN 32.9 pg (27.0-34.0); MEAN CORPUSCULAR HGB CONC 33.5 g/dL (33.0-35.0); MEAN CORPUSCULAR VOLUME 98.4 fL (80.0-100.0); MEAN PLATELET VOLUME 9.4 fL (7.4-11.0); MONOCYTES # (AUTO) 0.6 x10^3/uL (0.3-0.8); MONOCYTES % (AUTO) 7.9 % (0.0-13.0); NEUTROPHILS # (AUTO) 5.1 x10^3/uL (2.2-4.8); NEUTROPHILS % (AUTO) 64.7 % (42.0-75.0); PLATELET COUNT 186 X10^3/uL (150.0-450.0); RED BLOOD COUNT 3.92 X10^6/uL (3.5-5.4); RED CELL DISTRIBUTION WIDTH 13.7 % (11.6-16.5); WHITE BLOOD COUNT 7.8 X10^3/uL (3.6-10.0)
[2017-10-01 14:31] LABS: VALPROIC ACID < 3.0 ug/mL (50-100)
[2017-10-01 14:33] LABS: BLOOD UREA NITROGEN 14 mg/dL (7-18); CALCIUM 9.3 mg/dL (8.5-10.1); CARBON DIOXIDE 27.2 mmol/L (21-32); CHLORIDE 104 mmol/L (98-107); COR NA(FOR HYPERGLY) 140 mmol/L (136-145); CREATININE 0.88 mg/dL (0.55-1.02); SODIUM 138 mmol/L (136-145); TROPONIN I < 0.02 ng/mL (0-1.5); eGFR BLACK RACES > 60 (>60); eGFR NON BLACK RACES > 60 (>60)
[2017-10-01 14:37] LABS: ALANINE AMINOTRANSFERASE 16 Units/L (12-78); ALBUMIN 2.6 g/dL (3.4-5.0); ALKALINE PHOSPHATASE 233 Units/L (46-116); ASPARTATE AMINO TRANSFERASE 18 Units/L (15-37); CKMB % 2.2 % (<4); COR CA(FOR HYPOALB) 10.4 mg/dL (8.5-10.1); CREATINE KINASE 45 Units/L (26-192); CREATINE KINASE MB < 1.0 ng/mL (0-4.0); MAGNESIUM 1.9 mg/dL (1.7-2.9); TOTAL PROTEIN 8.1 g/dL (6.4-8.2)
--- NOTE | 2017-10-01 14:37 | CT ---
HISTORY: Intractable low back pain, bilateral lower extremity pain Study: CT lumbar spine without contrast Comparison: None Technique: Axial noncontrast images with coronal and sagittal reformats. Dose reduction procedures we re used with mA/kv adjusted for body size. Findings: The alignment is normal. The vertebral bodies are of average height with the exception of L1 which de monstrates mild anterior wedging of indeterminate age. The pedicles, spinous processes, and posterior elements are intact as are the SI joints and sacrum. The disc levels are evaluated as follows: L1-2 level: No evidence for compressive disc disease. The neural foramina are patent. The joints are normal. L2-3 level: No evidence for compressive disc disease. The neural foramina are patent. The joints are normal. L3-4 level: Circumferential disc bulging effaces the thecal sac and contributes along with bilateral facet arthropathy to moderate lateral recess and foraminal narrowing bilaterally. L4-5 level: Circumferential disc bulging effaces the thecal sac and contributes along with mild ligam entous hypertrophy and facet arthropathy to a mild spinal stenosis with mild to moderate lateral rece ss narrowing bilaterally. L5-S1 level: No evidence for compressive disc disease. The neural foramina are patent. Bilateral face t arthropathy is present. IMPRESSION: As above Reported By:
[2017-10-01] MEDS ORDERED: DEXTROMETHORPHAN PO PRN (16:23)
[2017-10-01] MEDS ORDERED: PROMETHAZINE PO PRN (16:23)
[2017-10-01] MEDS ORDERED: VALIUM INJ IVP PRN (16:31)
[2017-10-01 18:05] VITALS: BMI 29.5
[2017-10-01] MEDS: TORADOL 30 MG VIAL IVP PRN (19:44)
[2017-10-01] MEDS ORDERED: ZANTAC PO SCH (21:00)
[2017-10-01] MEDS ORDERED: COUMADIN TAB 2 MG PO SCH (21:00)
[2017-10-01] MEDS ORDERED: LEVETIRACETAM 500 MG PO SCH (21:00)
[2017-10-01] MEDS ORDERED: RANITIDINE HCL 300 MG PO SCH (21:00)
[2017-10-01] MEDS ORDERED: ZOCOR TAB 40 MG PO SCH (21:00)
[2017-10-01] MEDS ORDERED: NEURONTIN CAP 300 MG PO SCH (21:00)
[2017-10-01] MEDS: KEPPRA TAB 500 MG PO SCH (21:20)
[2017-10-01] MEDS: DILANTIN CAP 100 MG EXT REL PO SCH (21:21)
[2017-10-01] MEDS: ZYLOPRIM PO SCH (21:21)
--- NOTE | 2017-10-01 22:35 | MRI ---
MR lumbar spine with and without contrast Indication: Low back pain for 2-3 months. Bilateral lower leg pain and lower extremity weakness Technique: Multiplanar multi sequence imaging through the lumbar spine before and after IV contrast. 18 cc of Omniscan given. Comparison: CT lumbar spine from earlier the same day. Findings: Conus terminates normally pedicle at the pedicle level of L1. Bone marrow signal is normal. Intra-abdominal structures show acute abnormality T12-L1: No significant abnormality L1-L2: Minimal facet arthropathy without significant stenosis L2-L3: Minimal disc bulge and minimal facet arthropathy without significant stenosis L3-L4: Disc bulge moderate facet arthropathy causes mild spinal canal narrowing and mild bilateral ne ural foramen narrowing L4-L5: Circumferential disc bulge and moderate facet arthropathy causes mild spinal canal narrowing a nd mild right foramen narrowing. Mild right lateral recess noted. L5-S1: Circumferential disc bulge and facet arthropathy causes mild bilateral foramen narrowing. No S TIR signal abnormality seen. After contrast there is no abnormal focus of enhancement Impression: Lower lumbar spine disc degenerative change facet arthropathy with mild narrowing as above. No severe stenosis seen Reported By:
[2017-10-02] MEDS: TORADOL 30 MG VIAL IVP PRN (05:34)
[2017-10-02 06:43] LABS: BASOPHILS % (AUTO) 0.5 % (0.2-1.0); EOSINOPHILS # (AUTO) 0.2 x10^3/uL (0.0-0.2); EOSINOPHILS % (AUTO) 2.9 % (0.9-2.9); HEMATOCRIT 34.2 % (36.0-47.0); HEMOGLOBIN 11.4 g/dL (12.0-16.0); LYMPHOCYTES # (AUTO) 2.5 X10^3/uL (1.3-2.9); LYMPHOCYTES % (AUTO) 33.2 % (21.0-51.0); MEAN CORPUSCULAR HEMOGLOBIN 32.9 pg (27.0-34.0); MEAN CORPUSCULAR HGB CONC 33.4 g/dL (33.0-35.0); MEAN CORPUSCULAR VOLUME 98.3 fL (80.0-100.0); MEAN PLATELET VOLUME 9.8 fL (7.4-11.0); MONOCYTES # (AUTO) 1.1 x10^3/uL (0.3-0.8); MONOCYTES % (AUTO) 14.9 % (0.0-13.0); NEUTROPHILS # (AUTO) 3.7 x10^3/uL (2.2-4.8); NEUTROPHILS % (AUTO) 48.5 % (42.0-75.0); PLATELET COUNT 159 X10^3/uL (150.0-450.0); RED BLOOD COUNT 3.48 X10^6/uL (3.5-5.4); RED CELL DISTRIBUTION WIDTH 13.7 % (11.6-16.5); WHITE BLOOD COUNT 7.7 X10^3/uL (3.6-10.0)
[2017-10-02 07:22] LABS: ALANINE AMINOTRANSFERASE 14 Units/L (12-78); ALBUMIN 2.2 g/dL (3.4-5.0); ALKALINE PHOSPHATASE 183 Units/L (46-116); ASPARTATE AMINO TRANSFERASE 19 Units/L (15-37); BLOOD UREA NITROGEN 22 mg/dL (7-18); CALCIUM 8.2 mg/dL (8.5-10.1); CHLORIDE 107 mmol/L (98-107); COR CA(FOR HYPOALB) 9.6 mg/dL (8.5-10.1); CREATININE 0.82 mg/dL (0.55-1.02); SODIUM 140 mmol/L (136-145); TOTAL PROTEIN 6.9 g/dL (6.4-8.2); eGFR BLACK RACES > 60 (>60); eGFR NON BLACK RACES > 60 (>60)
[2017-10-02] MEDS ORDERED: VITAMIN D3 PO SCH (09:00)
[2017-10-02] MEDS ORDERED: COLACE CAP 100 MG PO SCH (09:00)
[2017-10-02] MEDS ORDERED: PATIENT'S HOME MEDICATION (Potassium Chloride [K-Tab Er] 10 MEQ) PO SCH (09:00)
[2017-10-02] MEDS ORDERED: PATIENT'S HOME MEDICATION (Cholecalciferol (Vitamin D3) [Vitamin D3] 1 CAP) PO SCH (09:00)
[2017-10-02] MEDS ORDERED: MICRO K EXTEN CAP 10 MEQ PO SCH (09:00)
[2017-10-02] MEDS ORDERED: VITAMIN C PO SCH (09:00)
[2017-10-02] MEDS ORDERED: CELEXA PO SCH (09:00)
[2017-10-02] MEDS: KEPPRA TAB 500 MG PO SCH (09:12)
[2017-10-02] MEDS: DILANTIN CAP 100 MG EXT REL PO SCH (09:12)
[2017-10-02] MEDS: ZYLOPRIM PO SCH (09:12)
[2017-10-02] MEDS ORDERED: NEURONTIN CAP 300 MG PO ONE (09:39)
[2017-10-02 12:09] VITALS: BP 92/56
== END 2017-10-02 13:30 | disposition home or self-care (01) ==
LOC: ER 13:22 → OBS 16:09
PROVIDERS: ADMIT Internal Medicine; ATTEND Internal Medicine
DX: M54.5 Low back pain (principal); M79.604 Pain in right leg; M79.605 Pain in left leg; R26.2 Difficulty in walking, not elsewhere classified; M10.9 Gout, unspecified; M19.90 Unspecified osteoarthritis, unspecified site; R47.81 Slurred speech; Z86.73 Personal history of transient ischemic attack (TIA), and cerebral infarction without residual deficits
CPT/HCPCS: 36415; 72131; 72158; 80053; 80164; 80185; 82550; 82553; 83735; 84484; 85025; 85610; 85730; 96365; 99284; A4222; G0378; J1885; J3360

== ENCOUNTER → 2017-10-08 | Outpatient (CLI) | payer MEDICAID ==
[2017-10-02 12:09] VITALS: BP 92/56
== END ==
LOC: LAB 11:23
PROVIDERS: ATTEND Nurse Practitioner Family
DX: R70.0 Elevated erythrocyte sedimentation rate (principal); R74.8 Abnormal levels of other serum enzymes; R79.82 Elevated C-reactive protein (CRP); Z79.01 Long term (current) use of anticoagulants; Z74.09 Other reduced mobility
CPT/HCPCS: 36415; 82615; 84080; 84443; 85610; 86141

== ENCOUNTER 2017-10-22 12:35 | Emergency (ER) | payer MEDICAID ==
[2017-10-22 12:56] VITALS: BP 127/70; BMI 32.4
[2017-10-22 13:20] LABS: BASOPHILS % (AUTO) 0.8 % (0.2-1.0); EOSINOPHILS # (AUTO) 0.2 x10^3/uL (0.0-0.2); EOSINOPHILS % (AUTO) 2.5 % (0.9-2.9); HEMATOCRIT 44.4 % (36.0-47.0); HEMOGLOBIN 14.7 g/dL (12.0-16.0); LYMPHOCYTES # (AUTO) 2.4 X10^3/uL (1.3-2.9); LYMPHOCYTES % (AUTO) 38.3 % (21.0-51.0); MEAN CORPUSCULAR HEMOGLOBIN 32.9 pg (27.0-34.0); MEAN CORPUSCULAR HGB CONC 33.1 g/dL (33.0-35.0); MEAN CORPUSCULAR VOLUME 99.2 fL (80.0-100.0); MEAN PLATELET VOLUME 9.9 fL (7.4-11.0); MONOCYTES # (AUTO) 0.7 x10^3/uL (0.3-0.8); MONOCYTES % (AUTO) 10.2 % (0.0-13.0); NEUTROPHILS # (AUTO) 3.1 x10^3/uL (2.2-4.8); NEUTROPHILS % (AUTO) 48.2 % (42.0-75.0); PLATELET COUNT 200 X10^3/uL (150.0-450.0); RED BLOOD COUNT 4.47 X10^6/uL (3.5-5.4); RED CELL DISTRIBUTION WIDTH 14.1 % (11.6-16.5); WHITE BLOOD COUNT 6.4 X10^3/uL (3.6-10.0)
[2017-10-22 13:30] LABS: ALANINE AMINOTRANSFERASE 19 Units/L (12-78); ALBUMIN 3.1 g/dL (3.4-5.0); ALKALINE PHOSPHATASE 275 Units/L (46-116); ASPARTATE AMINO TRANSFERASE 25 Units/L (15-37); BLOOD UREA NITROGEN 14 mg/dL (7-18); CARBON DIOXIDE 25.7 mmol/L (21-32); CHLORIDE 104 mmol/L (98-107); COR CA(FOR HYPOALB) 9.7 mg/dL (8.5-10.1); CREATININE 0.75 mg/dL (0.55-1.02); SODIUM 139 mmol/L (136-145); TOTAL PROTEIN 9.5 g/dL (6.4-8.2); eGFR BLACK RACES > 60 (>60); eGFR NON BLACK RACES > 60 (>60)
--- NOTE | 2017-10-22 14:09 | RAD ---
HIP RADIOGRAPHS CLINICAL HISTORY: 61-year-old female status post fall with low back pain. COMPARISON: Radiographs of left hip 02/27/2015. FINDINGS: 2 views of the left hip were obtained. These demonstrate no acute fracture or malalignment. The femoral head is round and is well seated within the acetabulum. The joint spaces are maintained. The mineralization is maintained. There is no aggressive bone lesion or abnormal periosteal reaction . There is no soft tissue calcification or gas. Large body habitus. IMPRESSION: No acute fracture or malalignment of the left hip. Reported By:
--- NOTE | 2017-10-22 14:11 | RAD ---
LUMBAR SPINE RADIOGRAPHS CLINICAL HISTORY: 61-year-old female status post fall with low back pain COMPARISON: CT lumbar spine 10/01/2017. FINDINGS: Study is significantly limited secondary to patient body habitus. The most caudad, fully-fo rmed intervertebral disc will be labeled L5-S1 for the purpose of this dictation and in keeping with prior imaging. Frontal and lateral views of the lumbar spine were obtained. There are 5 nonrib-bearin g lumbar type vertebral bodies. Mild straightening of the normal lumbar lordosis as imaged. Vertebral body heights are maintained. The intervertebral disc space heights are preserved. There is no sacr oiliac diastasis. IVC filter to the right of midline in an infrarenal location consistent with CT. IMPRESSION: No radiographic evidence of acute compression fracture deformity or malalignment on screening lumbar spine radiographs. Reported By:
--- NOTE | 2017-10-22 15:02 | DR.EXTPAIN ---
HPI - Time seen Time seen: 13:00 - Complaint/Symptoms Chief Complaint Doctor Comments: Patient fell while at home three days prior, family members unaware of fall. Today brings her in for left thigh pain. Chief Complaint:: PT C/O FALLING A FEW DAYS AGO WHILE MOVING TO THE [place] PT C/O LEFT HIP, LEFT LEG, AND LEFT FOOT ALL THE WAY DOWN NO DEFORMITY OR SWELLING NOTED .. BR Self Treatment fo Chief Complaint: PT HAS SOME MR AND SHE IS A POOR HISTORIAN . 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 - Family History History of Family Medical Conditions: Yes Family Medical History: Hypertension - Social History Does patient currently use any type of tobacco product: No Have you used tobacco products in the last 12 months: No Type of Tobacco Use: None Alcohol Use: None Do you use any recreational Drugs:: No Lives With: Family Lives Where: Assisted Care - infectious screening In the last 2 months have you had wt loss of >10#?: NO Have you had fever, night sweats or hemotysis?: No Have you traveled outside the country in the last 6 months?: No Isolation: Standard ROS - Review of Systems Eyes: No Symptoms Reported ENTM: No Symptoms Reported, Hearing Loss Cardiovascular: No Symptoms Reported Gastrointestinal/Abdominal: No Symptoms Reported Genitourinary: No Symptoms Reported Neurological: No Symptoms Reported Musculoskeletal: Hip (left hip/thigh pain) Integumentary: No Symptoms Reported Hematologic/Lymphatic: No Symptoms Reported Endocrine: No Symptoms Reported Psychiatric: No Symptoms Reported All Other Systems: Reviewed and Negative PE - Vital Signs Vitals: Temperature 97.0 F Pulse Rate 64 Respiratory Rate 20 Blood Pressure [Right Arm] 92/56 Blood Pressure [Left Arm] 101/58 Blood Pressure 127/70 O2 Sat by Pulse Oximetry 94 - General Limitations: No Limitations General Appearance: Alert, In No Apparent Distress - Head Head Exam: Normal Inspection, Atraumatic - Eyes Eye exam: Normal Appearance, PERRL, EOMI - ENT ENT Exam: Normal Exam - Neck Neck Exam: Normal Inspection, Full ROM - Chest Chest Inspection: Normal Inspection - Respiratory Respiratory Exam: Normal Lung Sounds Bilat Respiratory Exam: Bilateral Clear to Auscultation - Cardiovascular Cardiovascular Exam: Regular Rate, Normal Rhythm - Abdominal Exam Abdominal Exam: Normal Inspection, Normal Bowel Sounds Abdominal Tenderness: negative: RUQ, RLQ, LUQ, LLQ, Epigastrium, Suprapubic, Diffuse, Mild, Moderate, Severe, Other - Extremities Extremities Exam: Normal Inspection, Full ROM - Upper Extremities Shoulder Exam: Normal Inspection, Full ROM Arm Exam: Normal Inspection, Full ROM Elbow Exam: Normal Inspection Forearm Exam: Normal Inspection, Full ROM Hand Exam: Normal Inspection Neuromotor Exam: Normal Exam Neurosensory Exam: Normal Exam Hand Tendon Exam: Flexor Digitorium Profundus (Location) Upper Ext. Vascular Exam: Capillary Refill, Radial Pulse - Lower Extremities Hip/Pelvis Exam: Normal Inspection Upper Leg Exam: Normal Inspection, Full ROM Knee Exam: Normal Inspection Lower Leg Exam: Normal Inspection, Full ROM Ankle Exam: Normal Inspection, Full ROM Foot/Toe Exam: Normal Inspection Neurovascular/Tendon Exam: Normal Capillary Refill ROR - Labs Reviewed Result Diagrams: 10/22/17 13:14 10/22/17 13:14 Laboratory: WBC 6.4 X10^3/uL (3.6-10.0) 10/22/17 13:14 RBC 4.47 X10^6/uL (3.5-5.4) 10/22/17 13:14 Hgb 14.7 g/dL (12.0-16.0) 10/22/17 13:14 Hct 44.4 % (36.0-47.0) 10/22/17 13:14 MCV 99.2 fL (80.0-100.0) 10/22/17 13:14 MCH 32.9 pg (27.0-34.0) 10/22/17 13:14 MCHC 33.1 g/dL (33.0-35.0) 10/22/17 13:14 RDW 14.1 % (11.6-16.5) 10/22/17 13:14 Plt Count 200 X10^3/uL (150.0-450.0) 10/22/17 13:14 MPV 9.9 fL (7.4-11.0) 10/22/17 13:14 Neut % (Auto) 48.2 % (42.0-75.0) 10/22/17 13:14 Lymph % (Auto) 38.3 % (21.0-51.0) 10/22/17 13:14 Bennett % (Auto) 10.2 % (0.0-13.0) 10/22/17 13:14 Eos % (Auto) 2.5 % (0.9-2.9) 10/22/17 13:14 Baso % (Auto) 0.8 % (0.2-1.0) 10/22/17 13:14 Neut # (Auto) 3.1 x10^3/uL (2.2-4.8) 10/22/17 13:14 Lymph # (Auto) 2.4 X10^3/uL (1.3-2.9) 10/22/17 13:14 Bennett # (Auto) 0.7 x10^3/uL (0.3-0.8) 10/22/17 13:14 Eos # (Auto) 0.2 x10^3/uL (0.0-0.2) 10/22/17 13:14 Baso # (Auto) 0.0 X10^3/uL (0.0-0.1) 10/22/17 13:14 Absolute Nucleated RBC 0.2 /100WBC 10/22/17 13:14 Sodium 139 mmol/L (136-145) 10/22/17 13:14 Corrected Sodium TNP 10/22/17 13:14 Potassium 4.0 mmol/L (3.5-5.1) 10/22/17 13:14 Chloride 104 mmol/L (98-107) 10/22/17 13:14 Carbon Dioxide 25.7 mmol/L (21-32) 10/22/17 13:14 BUN 14 mg/dL (7-18) 10/22/17 13:14 Creatinine 0.75 mg/dL (0.55-1.02) 10/22/17 13:14 Est GFR (MDRD) Af Amer > 60 (>60) 10/22/17 13:14 Est GFR (MDRD) Non-Af > 60 (>60) 10/22/17 13:14 Glucose 95 mg/dL (65-99) 10/22/17 13:14 Calcium 9.0 mg/dL (8.5-10.1) 10/22/17 13:14 Corrected Calcium 9.7 mg/dL (8.5-10.1) 10/22/17 13:14 Total Bilirubin 0.30 mg/dL (0.2-1.0) 10/22/17 13:14 AST 25 Units/L (15-37) 10/22/17 13:14 ALT 19 Units/L (12-78) 10/22/17 13:14 Alkaline Phosphatase 275 Units/L (46-116) H 10/22/17 13:14 Total Protein 9.5 g/dL (6.4-8.2) H 10/22/17 13:14 Albumin 3.1 g/dL (3.4-5.0) L 10/22/17 13:14 Globulin 6.4 g/dL (2.5-4.5) H 10/22/17 13:14 Albumin/Globulin Ratio 0.5 Ratio (1.1-2.1) L 10/22/17 13:14 - XRAY XRAY Interpreted by: Radiologist (Lumbar spine: no radiograhpic evidence of acute compression fracture deformity or malalignment on the screening lumbar spine radiographs. Left Hip: No acute fracture or malalignment of the left hip.) - Diagnosis Discharge Problem: Contusion, hip and thigh Qualifiers: Encounter type: initial encounter Laterality: left Qualified Code(s): S70.02XA - Contusion of left hip, initial encounter; S70.12XA - Contusion of left thigh, initial encounter; S70.12XA - Contusion of left thigh, initial encounter - Discharge Plan Condition: Stable - Follow ups/Referrals Follow ups/Referrals: NFD,None [Primary Care Provider] - 3 days - Instructions
== END 2017-10-22 15:13 | disposition home or self-care (01) ==
LOC: ER 12:41
DX: S70.02XA Contusion of left hip, initial encounter (principal); S70.12XA Contusion of left thigh, initial encounter; W19.XXXA Unspecified fall, initial encounter; Y92.009 Unspecified place in unspecified non-institutional (private) residence as the place of occurrence of the external cause
CPT/HCPCS: 36415; 72100; 73501; 80053; 85025; 99283

== ENCOUNTER → 2017-11-19 | Outpatient (CLI) | payer MEDICAID ==
[2017-10-22 12:56] VITALS: BP 127/70
--- NOTE | 2017-11-19 11:21 | US ---
HISTORY: Abnormal LFTs Study: Liver ultrasound: Multiplanar ultrasonographic examination of the liver was performed. Comparison: CT of the abdomen and pelvis 04/02/2015 Findings: The liver is of normal size, echogenicity and echotexture. No evidence of intrahepatic biliary duct dilatation is noted. Vascular flow is normal direction. The gallbladder shows no evidence of gallst ones, pericholecystic fluid or gallbladder wall thickening. Common bile duct is normal at 3 mm. IMPRESSION: 1. Negative hepatic ultrasound. Reported By:
[2017-11-21 23:34] LABS: HEPATITIS A ANTIBODY IGM Negative (Negative)
[2017-11-22 07:23] LABS: HEPATITIS B CORE IGM Negative (Negative); HEPATITIS B SURFACE ANTIGEN Negative (Negative)
== END ==
LOC: RAD 09:15
PROVIDERS: ATTEND Nurse Practitioner Family
DX: R74.8 Abnormal levels of other serum enzymes (principal)
CPT/HCPCS: 36415; 76705; 80074

== ENCOUNTER 2017-12-03 11:48 | Emergency (ER) | payer MEDICAID ==
[2017-12-03 11:56] VITALS: BP 135/69; BMI 36.0
[2017-12-03 12:23] LABS: BASOPHILS # (AUTO) 0.1 X10^3/uL (0.0-0.1); BASOPHILS % (AUTO) 0.9 % (0.2-1.0); EOSINOPHILS # (AUTO) 0.2 x10^3/uL (0.0-0.2); EOSINOPHILS % (AUTO) 2.2 % (0.9-2.9); HEMOGLOBIN 13.4 g/dL (12.0-16.0); LYMPHOCYTES # (AUTO) 2.5 X10^3/uL (1.3-2.9); LYMPHOCYTES % (AUTO) 34.9 % (21.0-51.0); MEAN CORPUSCULAR HEMOGLOBIN 32.9 pg (27.0-34.0); MEAN CORPUSCULAR HGB CONC 33.6 g/dL (33.0-35.0); MEAN CORPUSCULAR VOLUME 97.9 fL (80.0-100.0); MEAN PLATELET VOLUME 9.7 fL (7.4-11.0); MONOCYTES # (AUTO) 0.7 x10^3/uL (0.3-0.8); MONOCYTES % (AUTO) 10.5 % (0.0-13.0); NEUTROPHILS # (AUTO) 3.6 x10^3/uL (2.2-4.8); NEUTROPHILS % (AUTO) 51.5 % (42.0-75.0); PLATELET COUNT 170 X10^3/uL (150.0-450.0); RED BLOOD COUNT 4.09 X10^6/uL (3.5-5.4); RED CELL DISTRIBUTION WIDTH 14.3 % (11.6-16.5)
[2017-12-03 12:43] LABS: ALANINE AMINOTRANSFERASE 16 Units/L (12-78); ALBUMIN 2.8 g/dL (3.4-5.0); ALKALINE PHOSPHATASE 247 Units/L (46-116); ASPARTATE AMINO TRANSFERASE 18 Units/L (15-37); BLOOD UREA NITROGEN 11 mg/dL (7-18); CALCIUM 8.7 mg/dL (8.5-10.1); CHLORIDE 103 mmol/L (98-107); COR CA(FOR HYPOALB) 9.7 mg/dL (8.5-10.1); SODIUM 140 mmol/L (136-145); TOTAL PROTEIN 8.4 g/dL (6.4-8.2); eGFR BLACK RACES > 60 (>60); eGFR NON BLACK RACES > 60 (>60)
--- NOTE | 2017-12-03 13:10 | CT ---
HISTORY: Facial pain Study: Maxillofacial CT without contrast Comparison: None Technique: Axial noncontrast images with coronal and sagittal reformats. Dose reduction procedures we re used with mA/kv adjusted for body size. The examination is limited due to the lack of intravenous contrast. The examination was performed in this matter at the sole discretion of the ordering [facility] er. Findings: No definite soft tissue abnormality is identified. The mandible and left temporomandibular joints are intact. There is some deformity of the right mandibular condyles with some degenerative arthritic ch lauren in the right TMJ. the maxillofacial bones nasal bones and orbital bones. The globes are intact. The retro-orbital soft tissues are normal. The sinuses are clear. The middle ear spaces and mastoid a ir cells are clear. IMPRESSION: No definite soft tissue abnormality identified. Sinuses are clear Degenerative arthritic change in the right temporal mandibular joint. Reported By:
--- NOTE | 2017-12-03 13:10 | CT ---
Exam: Head CT without contrast History: 62-year-old female with headache Comparison: Previous head CT from 04/25/2017. Technique: Axial imaging was performed from the vertex to the base the skull without intravenous cont rast being administered. Subsequently coronal and sagittal reformations were generated. Automated exp osure control techniques were used with this study. Finding: Generalized age related atrophic changes are again seen. This includes fairly severe global atrophy o f the cerebellar hemispheres, as was noted on previous exam. No intracranial hemorrhage, extracerebra l fluid collections, or intracranial mass is identified however. Patchy low density is present in a p eriventricular white matter distribution. These findings most likely reflect chronic underlying small vessel ischemia. Ventricles are symmetric in size and position with no mass effect seen. On the bone windows, no acute abnormality is identified. Visualized aspect of the paranasal sinuses a nd mastoid air cells are clear. Impression: 1. No acute intracranial abnormality is identified on today's exam. 2. Generalized age related atrophic changes and patchy areas of chronic small vessel ischemia most li wendy representing chronic small vessel ischemia. 3. Severe generalized cerebellar atrophy, unchanged since the previous exam. Reported By:
--- NOTE | 2017-12-03 14:10 | DR.EXTPAIN ---
HPI - Time seen Time seen: 12:00 - PCP Primary Care Physician: stella arce - Complaint/Symptoms Chief Complaint Doctor Comments: Patient presented to the ED with complaint of not her usual self. Complain of headache. Family reports that patient has started to sayiing things not related to conversation; or talking to people who are not there. Chief Complaint:: ems stated that family thought she was having a stroke. patient stated her head hurts and her face hurts. family stated she was last seen normal 10 hours ago. 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 - Family History History of Family Medical Conditions: Yes Family Medical History: Hypertension - Social History Does patient currently use any type of tobacco product: No Have you used tobacco products in the last 12 months: No Type of Tobacco Use: None Does any household member use tobacco: No Alcohol Use: None Do you use any recreational Drugs:: No Lives With: Family - infectious screening In the last 2 months have you had wt loss of >10#?: NO Have you had fever, night sweats or hemotysis?: No Have you traveled outside the country in the last 6 months?: No Isolation: Standard ROS - Review of Systems Constitutional: No Symptoms Reported Eyes: No Symptoms Reported ENTM: No Symptoms Reported Respiratoy: No Symptoms Reported Cardiovascular: No Symptoms Reported Gastrointestinal/Abdominal: No Symptoms Reported Genitourinary: No Symptoms Reported Neurological: No Symptoms Reported Musculoskeletal: No Symptoms Reported Integumentary: No Symptoms Reported Hematologic/Lymphatic: No Symptoms Reported Endocrine: No Symptoms Reported Psychiatric: No Symptoms Reported All Other Systems: Reviewed and Negative PE - Vital Signs Vitals: Temperature 98.6 F Pulse Rate 58 Respiratory Rate 16 Blood Pressure [Right Arm] 92/56 Blood Pressure [Left Arm] 101/58 Blood Pressure 135/69 O2 Sat by Pulse Oximetry 98 - General Limitations: Physical Limitation General Appearance: Alert - Head Head Exam: Normal Inspection, Atraumatic - Eyes Eye exam: Normal Appearance, PERRL, EOMI - ENT ENT Exam: Normal Exam - Neck Neck Exam: Normal Inspection, Full ROM - Chest Chest Inspection: Normal Inspection - Respiratory Respiratory Exam: Normal Lung Sounds Bilat Respiratory Exam: Bilateral Clear to Auscultation - Cardiovascular Cardiovascular Exam: Regular Rate, Normal Rhythm - Abdominal Exam Abdominal Exam: Normal Inspection, Normal Bowel Sounds Abdominal Tenderness: negative: RUQ, RLQ, LUQ, LLQ, Epigastrium, Suprapubic, Diffuse, Mild, Moderate, Severe, Other - Extremities Extremities Exam: Normal Inspection, Full ROM - Upper Extremities Shoulder Exam: Normal Inspection Arm Exam: Normal Inspection, Full ROM Elbow Exam: Normal Inspection Forearm Exam: Normal Inspection Hand Exam: Normal Inspection Neuromotor Exam: Normal Exam Neurosensory Exam: Normal Exam Hand Tendon Exam: Flexor Digitorium Profundus (Location) Upper Ext. Vascular Exam: Capillary Refill, Radial Pulse - Lower Extremities Hip/Pelvis Exam: Normal Inspection, Full ROM Upper Leg Exam: Normal Inspection, Full ROM Knee Exam: Normal Inspection Lower Leg Exam: Normal Inspection, Full ROM Ankle Exam: Normal Inspection Foot/Toe Exam: Normal Inspection Neurovascular/Tendon Exam: Normal Capillary Refill Gait Exam: Observed and Normal - Back Back Exam: Normal Inspection - Neurological Neurological Exam: Alert, Oriented X3, CN II-XII Intact - Psychiatric Psychiatric Exam: Normal Affect, Normal Mood - Skin Skin Exam: Warm, Dry Course - Reevaluation 1st: Unchanged ROR - Labs Reviewed Result Diagrams: 12/03/17 12:13 12/03/17 12:13 Laboratory: WBC 7.0 X10^3/uL (3.6-10.0) 12/03/17 12:13 RBC 4.09 X10^6/uL (3.5-5.4) 12/03/17 12:13 Hgb 13.4 g/dL (12.0-16.0) 12/03/17 12:13 Hct 40.0 % (36.0-47.0) 12/03/17 12:13 MCV 97.9 fL (80.0-100.0) 12/03/17 12:13 MCH 32.9 pg (27.0-34.0) 12/03/17 12:13 MCHC 33.6 g/dL (33.0-35.0) 12/03/17 12:13 RDW 14.3 % (11.6-16.5) 12/03/17 12:13 Plt Count 170 X10^3/uL (150.0-450.0) 12/03/17 12:13 MPV 9.7 fL (7.4-11.0) 12/03/17 12:13 Neut % (Auto) 51.5 % (42.0-75.0) 12/03/17 12:13 Lymph % (Auto) 34.9 % (21.0-51.0) 12/03/17 12:13 Graham % (Auto) 10.5 % (0.0-13.0) 12/03/17 12:13 Eos % (Auto) 2.2 % (0.9-2.9) 12/03/17 12:13 Baso % (Auto) 0.9 % (0.2-1.0) 12/03/17 12:13 Neut # (Auto) 3.6 x10^3/uL (2.2-4.8) 12/03/17 12:13 Lymph # (Auto) 2.5 X10^3/uL (1.3-2.9) 12/03/17 12:13 Graham # (Auto) 0.7 x10^3/uL (0.3-0.8) 12/03/17 12:13 Eos # (Auto) 0.2 x10^3/uL (0.0-0.2) 12/03/17 12:13 Baso # (Auto) 0.1 X10^3/uL (0.0-0.1) 12/03/17 12:13 Absolute Nucleated RBC 0.0 /100WBC 12/03/17 12:13 Sodium 140 mmol/L (136-145) 12/03/17 12:13 Corrected Sodium TNP 12/03/17 12:13 Potassium 4.6 mmol/L (3.5-5.1) 12/03/17 12:13 Chloride 103 mmol/L (98-107) 12/03/17 12:13 Carbon Dioxide 31.0 mmol/L (21-32) 12/03/17 12:13 BUN 11 mg/dL (7-18) 12/03/17 12:13 Creatinine 0.80 mg/dL (0.55-1.02) 12/03/17 12:13 Est GFR (MDRD) Af Amer > 60 (>60) 12/03/17 12:13 Est GFR (MDRD) Non-Af > 60 (>60) 12/03/17 12:13 Glucose 98 mg/dL (65-99) 12/03/17 12:13 Calcium 8.7 mg/dL (8.5-10.1) 12/03/17 12:13 Corrected Calcium 9.7 mg/dL (8.5-10.1) 12/03/17 12:13 Total Bilirubin 0.30 mg/dL (0.2-1.0) 12/03/17 12:13 AST 18 Units/L (15-37) 12/03/17 12:13 ALT 16 Units/L (12-78) 12/03/17 12:13 Alkaline Phosphatase 247 Units/L (46-116) H 12/03/17 12:13 Total Protein 8.4 g/dL (6.4-8.2) H 12/03/17 12:13 Albumin 2.8 g/dL (3.4-5.0) L 12/03/17 12:13 Globulin 5.6 g/dL (2.5-4.5) H 12/03/17 12:13 Albumin/Globulin Ratio 0.5 Ratio (1.1-2.1) L 12/03/17 12:13 Phenytoin 36.8 ug/mL (10-20) H* 12/03/17 12:13 - XRAY XRAY Interpreted by: Radiologist (CT Facial:No definite soft tissue abnormality is identified. The mandible and left temporomandibular joints are intact. There is some deformity of the right mandibular condyles with some degenerative arthritic change in the right TMJ. The maxillofacial nobnes and orbital bones changes. The globes are intact. The retro-orbitial soft tissues are normal. The sinuses are clear. The middle ear spaces and mastoid are cells are clear., Degenerative arthritic change in the right temporal mandibular joint. Head CT: No acute intracranial abnormality is identified on today's exam. Generalized age related atrophic changes and patchy areas of chronic smal vessel ischemia most likely representing chronic small vessel ischemia. Severe generalized cerebellar atroph, unchanged since the previous exam.) - Diagnosis Discharge Problem: Severe generalized cerebral atrophy, Chronic small vessel ischemia Phenytoin toxicity Qualifiers: Encounter type: initial encounter Injury intent: accidental or unintentional Qualified Code(s): T42.0X1A - Poisoning by hydantoin derivatives, accidental ( unintentional), initial encounter - Discharge Plan Condition: Stable - Follow ups/Referrals Follow ups/Referrals: RAY SANDOVAL [Primary Care Provider] - 3 days - Instructions
== END 2017-12-03 14:29 | disposition home or self-care (01) ==
LOC: ER 11:50
DX: G51.9 Disorder of facial nerve, unspecified (principal); I67.89 Other cerebrovascular disease; T42.0X1A Poisoning by hydantoin derivatives, accidental (unintentional), initial encounter; M19.90 Unspecified osteoarthritis, unspecified site
CPT/HCPCS: 36415; 70450; 70486; 80053; 80185; 85025; 99283

== ENCOUNTER → 2017-12-16 | Outpatient (CLI) | payer MEDICAID ==
[2017-12-03 11:56] VITALS: BP 135/69
--- NOTE | 2017-12-16 11:57 | VAS ---
Examination: Carotid duplex Doppler ultrasound Clinical History: Headache. Technique: Duplex Doppler ultrasound utilizing weaver scale imaging and spectral analysis with color/du plex imaging was used to evaluate the carotid systems bilaterally. Comparison: None available. Findings: Minimal atheromatous plaque formation is noted in the carotid systems bilaterally. The following peak systolic velocity measurements were made in cm/s. Right Left Proximal CCA 68.6 92.3 Mid CCA 54.3 55.8 Distal CCA 53.5 57.9 Proximal ICA 37.8 55.5 Mid ICA 37.0 56.7 Distal ICA 39.4 50.4 ECA 64.5 48.9 Vertebral 33.4 33.4 ICA/CCA ratio 0.73 1.02 Peak systolic velocities in the common carotid, internal carotid and external carotid arteries, are w ithin normal limits bilaterally, with no sonographic evidence of a hemodynamically significant stenos is in the carotid systems bilaterally. Normal antegrade flow is demonstrated in the vertebral arteries bilaterally. Impression: 1. There is no sonographic evidence of a hemodynamically significant stenosis in the carotid systems bilaterally. Degree of carotid narrowing is less than 50% by velocity criteria bilaterally. Reported By:
== END ==
LOC: RAD 10:40
PROVIDERS: ATTEND Nurse Practitioner Family
DX: G44.89 Other headache syndrome (principal); R42 Dizziness and giddiness
CPT/HCPCS: 93880

== ENCOUNTER 2017-12-24 13:47 | Emergency (ER) | payer MEDICAID ==
[2017-12-24 13:57] VITALS: BP 104/71; BMI 32.2
--- NOTE | 2017-12-24 14:28 | DR.EXTPAIN ---
HPI - Time seen Time seen: 13:55 - PCP Primary Care Physician: JAIME - HPI Comment HPI Comment: PATIENT FELL TODAY AND HAVE BELOW PAIN. NO LOC. HAVE PROBLE MOVING WITHOUT FALL. SHE IS BED BOUND. - Complaint/Symptoms Chief Complaint Doctor Comments: HIP L&R AND LEFT KNEE PAIN, FELL. 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 - Family History History of Family Medical Conditions: Yes Family Medical History: Hypertension - Social History Does any household member use tobacco: No Alcohol Use: None Do you use any recreational Drugs:: No Lives With: Family Lives Where: Home - infectious screening In the last 2 months have you had wt loss of >10#?: NO Have you had fever, night sweats or hemotysis?: No Have you traveled outside the country in the last 6 months?: No Isolation: Standard ROS - Review of Systems Constitutional: negative: Chills, Fever Eyes: negative: Eye Pain, Discharge ENTM: negative: Ear Pain, Nose Discharge, Nose Congestion, Throat Pain Respiratoy: Short of Breath (ON EXCERTION). negative: Productive Cough, Wheezing, Hemoptysis Cardiovascular: negative: Chest Pain Gastrointestinal/Abdominal: negative: Abdominal Pain, Nausea, Vomiting Genitourinary: negative: Dysuria, Hematuria Neurological: Headache Musculoskeletal: Back Pain, Joint Pain, Hip, Knee Integumentary: Change in Color Hematologic/Lymphatic: Anemia Endocrine: No Symptoms Reported All Other Systems: Reviewed and Negative PE - Vital Signs Vitals: Temperature 97.3 F Pulse Rate 66 Respiratory Rate 20 Blood Pressure [Right Arm] 92/56 Blood Pressure [Left Arm] 101/58 Blood Pressure 104/71 O2 Sat by Pulse Oximetry 97 - General Limitations: Altered Mental Status General Appearance: Alert, Other (BED BOUND.) - Head Head Exam: Normal Inspection - Eyes Eye exam: negative: PERRL, Conjunctival Injection - ENT ENT Exam: Normal External Ear Exam - Neck Neck Exam: Trachea Midline - Chest Chest Inspection: Symmetric Chest Wall Rise - Respiratory Respiratory Exam: Normal Lung Sounds Bilat Respiratory Exam: Bilateral Rhonchi, Lower Rhonchi - Cardiovascular Cardiovascular Exam: Regular Rate, Normal Rhythm, Normal Heart Sounds - Abdominal Exam Abdominal Exam: Normal Inspection - Extremities Extremities Exam: Tenderness (BOTH HIPS AND LT KNEE TENDER.) - Neurological Neurological Exam: Alert - Skin Skin Exam: Dry, Erythema MDM - Differential Diagnosis Differential Diagnosis: Contusion, Fracture, Sprain Course - Treatment Treatment: SEE ORDERS. - Education/Counseling Education/Counseling: Patient, Family, Education Educated On: Diagnosis, Needs for Follow Up ROR - XRAY XRAY Interpreted by: Radiologist XRAY Findings: REPORT DISCUSS WITH PATIENT AND HER SISTER. - Diagnosis Discharge Problem: Hip pain Qualifiers: Laterality: bilateral Qualified Code(s): M25.551 - Pain in right hip Knee pain Qualifiers: Chronicity: acute Laterality: bilateral Qualified Code(s): M25.561 - Pain in right knee - Discharge Plan Disposition: 01 HOME, SELF-CARE Condition: Stable - Follow ups/Referrals Follow ups/Referrals: RAY SANDOVAL [Primary Care Provider] - 3 days - Instructions Instructions: Hip Pain, Knee Pain, Adult, [id number] Additional Instructions: RETURN TO ED IF WORSE. CONTINUE WITH MEDS YOU HAVE AT HOME.
--- NOTE | 2017-12-24 14:50 | RAD ---
HISTORY: Fall, left knee pain Study: Three-view left knee Comparison: 04/30/2017. Findings: No fracture, dislocation or joint effusion is seen. There is mild peaking of tibial spines and osteop hyte formation involving the patella. Articular spaces are well maintained. Soft tissues are unremark able. IMPRESSION: Mild degenerative changes of the left knee. An acute abnormality is not identified. Reported By:
--- NOTE | 2017-12-24 14:53 | RAD ---
HISTORY: Fall, bilateral hip pain Study: Bilateral hips including pelvis Comparison: 10/22/2017 Technique: AP views of the pelvis were obtained with the hips in neutral and frogleg lateral position s. Findings: Bony pelvis is intact. Small calcified fibroids are present. Both femoral heads are well seated withi n the acetabular regions bilaterally. No evidence of fracture, dislocation or AVN is seen. There is n o evidence of significant joint effusion. IMPRESSION: Unremarkable bilateral hips. Reported By:
== END 2017-12-24 15:58 | disposition home or self-care (01) ==
LOC: ER 13:48
DX: M25.551 Pain in right hip (principal); M25.561 Pain in right knee; W19.XXXA Unspecified fall, initial encounter; Y92.9 Unspecified place or not applicable
CPT/HCPCS: 73521; 73564; 99282

== ENCOUNTER 2020-01-19 09:31 | Inpatient (IN) ==
[2020-01-19] MEDS ORDERED: ZOFRAN INJ 4 MG VIAL IVP PRN (10:35)
[2020-01-19] MEDS ORDERED: HumuLIN R SUBCUT PRN (10:35)
[2020-01-19] MEDS ORDERED: PROTONIX INJ 40 MG VIAL IVP SCH (11:00)
[2020-01-19 11:18] LABS: BILIRUBIN,URINE 1+ (NEGATIVE); BLOOD/HEMOGLOBIN,URINE 1+ (NEGATIVE); GLUCOSE, URINE NEGATIVE (NEGATIVE); KETONES,URINE 1+ (NEGATIVE); LEUKOCYTE ESTERASE ,URINE 1+ (NEGATIVE); NITRITES,URINE NEGATIVE (NEGATIVE); PROTEIN,URINE 2+ (NEGATIVE); UROBILINOGEN,URINE 3+ (NORMAL)
[2020-01-19 11:28] LABS: BASOPHILS # (AUTO) 0.1 X10^3/uL (0.0-0.1); BASOPHILS % (AUTO) 0.5 % (0.2-1.0); EOSINOPHILS # (AUTO) 0.1 x10^3/uL (0.0-0.2); EOSINOPHILS % (AUTO) 0.5 % (0.9-2.9); HEMATOCRIT 39.6 % (36.0-47.0); HEMOGLOBIN 12.8 g/dL (12.0-16.0); LYMPHOCYTES # (AUTO) 2.7 X10^3/uL (1.3-2.9); LYMPHOCYTES % (AUTO) 19.1 % (21.0-51.0); MEAN CORPUSCULAR HEMOGLOBIN 32.8 pg (27.0-34.0); MEAN CORPUSCULAR HGB CONC 32.2 g/dL (33.0-35.0); MEAN CORPUSCULAR VOLUME 101.9 fL (80.0-100.0); MEAN PLATELET VOLUME 11.4 fL (7.4-11.0); MONOCYTES # (AUTO) 1.7 x10^3/uL (0.3-0.8); MONOCYTES % (AUTO) 11.8 % (0.0-13.0); NEUTROPHILS # (AUTO) 9.6 x10^3/uL (2.2-4.8); NEUTROPHILS % (AUTO) 68.1 % (42.0-75.0); PLATELET COUNT 184 X10^3/uL (150.0-450.0); RED BLOOD COUNT 3.89 X10^6/uL (3.5-5.4); RED CELL DISTRIBUTION WIDTH 14.5 % (11.6-16.5); WHITE BLOOD COUNT 14.2 X10^3/uL (3.6-10.0)
[2020-01-19 11:30] LABS: ALBUMIN 2.9 g/dL (3.4-5.0); CALCIUM 9.8 mg/dL (8.5-10.1); CARBON DIOXIDE 37.3 mmol/L (21-32); COR CA(FOR HYPOALB) 10.7 mg/dL (8.5-10.1); CREATININE 1.29 mg/dL (0.55-1.02); TOTAL PROTEIN 9.3 g/dL (6.4-8.2)
[2020-01-19] MEDS ORDERED: POTASSIUM CHLORIDE LIQ 20 MEQ UDC PO PRN (11:34)
[2020-01-19] MEDS ORDERED: MICRO K EXTEN CAP 10 MEQ PO PRN (11:34)
[2020-01-19] MEDS ORDERED: POTASSIUM CHL 40 MEQ/NS 0.45% 500 ML IV PRN (11:34)
[2020-01-19] MEDS ORDERED: K-RIDER 10 MEQ/NS 100 ML 10 MEQ/100 ML BAG IV PRN (11:34)
[2020-01-19] MEDS ORDERED: POTASSIUM CHL 60 MEQ/NS 0.45% 500 ML IV PRN (11:34)
[2020-01-19 11:37] LABS: AMORPHOUS SEDIMENT,UR 1+ /HPF (NEGATIVE); APPEARANCE,URINE SLIGHTLY HAZY (CLEAR); BACTERIA,URINE TRACE /HPF (NEGATIVE); COLOR,URINE AMBER (YELLOW); HYALINE CASTS, URINE MANY /LPF (NEGATIVE); RBC,URINE 0-2 /HPF (0-3); SQUAMOUS EPITHELIAL CELL,UR FEW /HPF (NEGATIVE)
--- NOTE | 2020-01-19 11:38 | RAD ---
HISTORYAbdominal painSTUDYAP [id number]/15/2020FINDINGSStable cardiac size. No evidence for developing consolidation, pulmonary edema, pneumothorax or pleural fluid. Previously described interstitial prominence in the lungs is less obvious on the current study.IMPRESSIONSlight apparent improvement in aeration of the lungs, see above. No new abnormality demonstrated.Electronically signed by: CARMINA ORTIZ (Jan 19, 2020 11:37:06)
[2020-01-19 11:41] VITALS: BMI 39.5
[2020-01-19 11:44] LABS: PLATELET MORPHOLOGY COMMENT NORMAL (NORMAL)
[2020-01-19] MEDS ORDERED: PHARMACY CONSULT LTC MEDICATIONS XX SCH (12:00)
--- NOTE | 2020-01-19 14:03 | CT ---
HISTORYINTRACTABLE NAUSEA/VOMITINGSTUDYABDOMEN/PELVIS WITH CONCOMPARISONNone availableTECHNIQUEMultiple axial images of the abdomen and pelvis were obtained from the lung bases to the pubic symphysis after the administration of IV contrast. Dose reduction techniques including Automated Exposure Control (AEC) and adjustment of mA and kV were utilized.FINDINGS[No lung bases demonstrate subsegmental atelectasis bilaterally. Heart size is mildly enlarged. No pericardial effusion. No focal hepatic lesion. Liver morphology is normal. Gallbladder, bile ducts, spleen, pancreas and adrenal glands are unremarkable aside for mild pancreatic atrophic change. The right kidney demonstrates no nephrolithiasis, hydronephrosis or mass. The left kidney contains suspected punctate nonobstructing stones within the lower pole. Upper GI tract is without evidence of mass or obstruction. Urinary bladder is normal. Calcified fibroids are noted within the uterus. The rectum and colon are normal. No pelvic free fluid or adenopathy. Abdominal aorta is normal in caliber with scattered calcified atherosclerotic disease. IVC filter is noted in expected positioning below the level the renal vein insertion.Review of bone windows demonstrates no acute osseous abnormality.]IMPRESSIONSuspected punctate nonobstructing stones in the lower pole left kidney.No acute inflammatory process identified within the abdomen or pelvis.Electronically signed by: OLVIN DUNNE (Jan 19, 2020 14:01:58)
[2020-01-19] MEDS: NS 1000 ML 1,000 ML IV SCH ×2 (15:06→20:42)
[2020-01-19] MEDS: PEPCID 20 MG IV PREMIX* 20 MG/50 ML BAG IV SCH ×2 (15:07→20:41)
[2020-01-19] MEDS: KLOR-CON PO PRN ×2 (16:49→21:40)
[2020-01-19] MEDS: PROTONIX INJ 40 MG VIAL IVP SCH (20:41)
[2020-01-19] MEDS: SNACK - Diabetic Appropriate PO SCH (20:42)
[2020-01-20] MEDS: ZOFRAN INJ 4 MG VIAL IVP PRN ×2 (02:57→09:55)
[2020-01-20] MEDS: NS 1000 ML 1,000 ML IV SCH ×4 (03:01→18:08)
[2020-01-20 06:17] LABS: BASOPHILS # (AUTO) 0.1 X10^3/uL (0.0-0.1); BASOPHILS % (AUTO) 0.8 % (0.2-1.0); EOSINOPHILS # (AUTO) 0.3 x10^3/uL (0.0-0.2); EOSINOPHILS % (AUTO) 3.1 % (0.9-2.9); HEMATOCRIT 35.1 % (36.0-47.0); HEMOGLOBIN 11.3 g/dL (12.0-16.0); LYMPHOCYTES # (AUTO) 2.1 X10^3/uL (1.3-2.9); MEAN CORPUSCULAR HEMOGLOBIN 32.8 pg (27.0-34.0); MEAN CORPUSCULAR HGB CONC 32.2 g/dL (33.0-35.0); MEAN PLATELET VOLUME 10.9 fL (7.4-11.0); MONOCYTES % (AUTO) 10.5 % (0.0-13.0); NEUTROPHILS # (AUTO) 6.1 x10^3/uL (2.2-4.8); NEUTROPHILS % (AUTO) 63.6 % (42.0-75.0); PLATELET COUNT 154 X10^3/uL (150.0-450.0); RED BLOOD COUNT 3.44 X10^6/uL (3.5-5.4); RED CELL DISTRIBUTION WIDTH 14.9 % (11.6-16.5); WHITE BLOOD COUNT 9.6 X10^3/uL (3.6-10.0)
[2020-01-20 06:30] LABS: ALANINE AMINOTRANSFERASE 48 Units/L (12-78); ALBUMIN 2.3 g/dL (3.4-5.0); ALKALINE PHOSPHATASE 136 Units/L (46-116); ASPARTATE AMINO TRANSFERASE 63 Units/L (15-37); BLOOD UREA NITROGEN 18 mg/dL (7-18); CALCIUM 8.8 mg/dL (8.5-10.1); CARBON DIOXIDE 32.3 mmol/L (21-32); CHLORIDE 105 mmol/L (98-107); COR CA(FOR HYPOALB) 10.2 mg/dL (8.5-10.1); COR NA(FOR HYPERGLY) 142 mmol/L (136-145); CREATININE 1.14 mg/dL (0.55-1.02); SODIUM 141 mmol/L (136-145); TOTAL PROTEIN 7.6 g/dL (6.4-8.2); eGFR NON BLACK RACES 51 (>60)
--- NOTE | 2020-01-20 09:50 | DR.H&P ---
H&P - History & Physical for Day of: H&P Date: 01/19/20 - Chief Complaint Chief Complaint: NAUSEA AND VOMITING, DIFFICULTY SWALLOWING - History of Present Illness History of Present Illness: IS A 64 YEAR OLD FEMALE WHO IS A RESIDENT [facility]. SHE IS A PATIENT OF [facility]. SHE PRESENTED TO THE HOSPITAL A DIRECT ADMISSION DUE TO COMPLAINTS OF PERSISTENT NAUSEA AND VOMITING AND DIFFICULTY SWALLOWING. OUTPATIENT LABS WERE OBTAINED AND REVEALED AN ELEVATED WBC OF 16.6. A KUB WAS ALSO OBTAINED AND REVEALED: Gastric distention is present, which may be related to gastroparesis or mechanical gastric outlet obstruction. Gastric decompression may be appropriate. Small pelvic calcification is nonspecific but may indicate a calcified uterine fibroid. Faintly defined left flank calcifications consistent with intrarenal s tones, described on previous CT. SHE WAS ADMITTED WITH A DIAGNOSIS OF LEUKOCYTOSIS, INTRACTABLE NAUSEA AND VOMITING, AND RULE OUT GASTRIC OUTLET OBSTRUCTION. HER PMH INCLUDES: MULTIPLE CVAs, TIAs, EPILEPSY, POLYNEUROPATHY, RESTLESS LEGS, CAD, CHF, ANGINA, HYPERLIPIDEMIA, HTN, GERD, OSTEOARTHRITIS, GOUT, DM II, HYPOTHYROIDISM, ANEMIA, ANXIETY, SCHIZOPHRENIA, TUBALIGATION, AND HERNIA REPAIR. ON ARRIVAL TO THE FLOOR, VITALS WERE 97.2-104-18-94%-120/75. LABS WERE OBTAINED. ABNORMAL LAB VALUES INCLUDE THE FOLLOWING: WBC 14.2, SODIUM 146, POTASSIUM 3.3, CARBON DIOXIDE 37.3, CREATININE 1.29, GLUCOSE 123, AST 56, ALK PHOS 176, TOTAL PROTEIN 9.3, ALBUMIN 2.9, GLOBULIN 6.4. A URINALYSIS WAS OBTAINED AND REVEALED: WBC 0-2, RBC 0-2, LEUKOCYTES 1+, NITRITE NEGATIVE, BACTERIA TRACE. A URINE CULTURE WAS SET UP. BLOOD CULTURES WERE ALSO SET UP. AN ABDOMEN/PELVIS CT WITH CONTRAST WAS OBTAINED AND REVEALED: Suspected punctate nonobstructing stones in the lower pole left kidney. No acute inflammatory pro cess identified within the abdomen or pelvis. A CHEST XRAY WAS OBTAINED AND REVEALED: Stable cardiac size. No evidence for developing consolidation, pulmonary edema, pneumothorax or pleural fluid. Previously described interstitial prominence in the lungs is less obvious on the current study. SHE WAS STARTED ON NS AT 125ML/HR, PEPCID 20MG IV Q12H, PROTONIX 40MG IV BID, HUMULIN R SLIDING SCALE, THE POTASSIUM AND MAGNESIUM PROTOCOLS, AND ZOFRAN 4MG IV Q4H PRN. WE WILL CONSULT WITH DUE TO DIFFICULTY SWALLOWING. OTHERWISE, WE PLAN TO FOLLOW UP WITH AM LABS AND CONTINUE TO MONITOR. 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 - Family History Family Medical History: Hypertension - Social History Does any household member use tobacco: No Alcohol Use: None Drug Use: None - Medications Home Medications: No Known Drug Allergies Allergy (Verified 01/19/20 10:35) CONTINUE taking the following medications cholecalciferol (vitamin D3) 250 mcg PO DAILY 01/19/20 [History] citalopram [Celexa] 40 mg PO DAILY 01/19/20 [History] clonazepam [Klonopin] 0.25 mg PO .QOD 01/19/20 [History] diclofenac sodium [Voltaren] 1 % TOPICAL Q8H PRN 01/19/20 [History] furosemide [Lasix] 40 mg PO BID 01/19/20 [History] levothyroxine [Synthroid] 75 mcg PO DAILY 01/19/20 [History] melatonin 5 mg PO HS 01/19/20 [History] meloxicam 15 mg PO DAILY 01/19/20 [History] olanzapine [Zyprexa] 10 mg PO BID 01/19/20 [History] ondansetron HCl [Zofran] 4 mg PO Q6H PRN 01/19/20 [History] pramipexole [Mirapex] 0.25 mg PO BID 01/19/20 [History] rivaroxaban [Xarelto] 20 mg PO DAILY 01/19/20 [History] - Review of Systems Constitutional: Malaise Eyes: No Symptoms Reported ENT: Other (DIFFICULTY SWALLOWING ) Respiratory: No Symptoms Reported Cardiovascular: No Symptoms Reported Gastrointestinal: See HPI, Nausea, Vomiting Musculoskeletal: No Symptoms Reported Skin: No Symptoms Reported Neurological: Weakness - Physical Exam Vital Signs: Temperature 97.7 F Pulse Rate [Right Brachial] 96 Respiratory Rate 18 Blood Pressure [Right Arm] 114/68 Blood Pressure [Left Arm] 140/93 Blood Pressure 150/80 O2 Sat by Pulse Oximetry 92 Oriented: Person, Place Eyes: Normal Ear: Normal Nose: Normal Throat: Normal Respiratory: Diminished Throughout Cardiovascular: Tachycardia. negative: S3, S4, Murmur : Normal Auscultation: Bowel Sounds: Normal Palpation: Normal Tenderness: Normal Skin: Normal Musculoskeletal: Motor Deficit Psychiatric: Normal Mood Description: Calm Affect: Normal Speech Pattern: Appropriate, Unclear - Assessment/Plan (1) Leukocytosis Qualifiers: Leukocytosis type: unspecified Qualified Code(s): D72.829 - Elevated white blood cell count, unspecified Status: Acute Plan: ADMIT, NS AT 125ML/HR, PEPCID 20MG IV Q12H, PROTONIX 40MG IV BID, HUMULIN R SLIDING SCALE, THE POTASSIUM AND MAGNESIUM PROTOCOLS, AND ZOFRAN 4MG IV Q4H PRN. (2) Nausea & vomiting Qualifiers: Vomiting type: unspecified Vomiting Intractability: intractable Qualified Code(s): R11.2 - Nausea with vomiting, unspecified Status: Acute (3) Gastric outlet obstruction Status: Suspected (4) Dysphagia Qualifiers: Dysphagia type: unspecified Qualified Code(s): R13.10 - Dysphagia, unspecified Status: Acute Plan: CONSULT GI, CONTINUE TO MONITOR - Allergies Allergies/Adverse Reactions: Allergies Allergy/AdvReac Type Severity Reaction Status Date / Time No Known Drug Allergies Allergy Verified 01/19/20 10:35
[2020-01-20] MEDS: PROTONIX INJ 40 MG VIAL IVP SCH ×2 (09:55→21:30)
[2020-01-20] MEDS: PEPCID 20 MG IV PREMIX* 20 MG/50 ML BAG IV SCH ×2 (09:55→21:30)
[2020-01-20 11:59] LABS: BILIRUBIN,URINE NEGATIVE (NEGATIVE); BLOOD/HEMOGLOBIN,URINE 1+ (NEGATIVE); GLUCOSE, URINE NEGATIVE (NEGATIVE); KETONES,URINE 1+ (NEGATIVE); LEUKOCYTE ESTERASE ,URINE 1+ (NEGATIVE); NITRITES,URINE NEGATIVE (NEGATIVE); PROTEIN,URINE 2+ (NEGATIVE); UROBILINOGEN,URINE 2+ (NORMAL)
[2020-01-20 12:06] LABS: APPEARANCE,URINE SLIGHTLY HAZY (CLEAR); COLOR,URINE YELLOW (YELLOW)
[2020-01-20] MEDS: CIPRO IV 400 MG PREMIX* 400 MG/200 ML IV.SOLN. IV SCH ×2 (13:12→21:30)
--- NOTE | 2020-01-20 17:26 | DR.CONSULT ---
Consult - Consultation for Day of: Date: 01/20/20 - Chief Complaint Chief Complaint: Patient referred for dysphagia. Patient with complaints of Dysphagia, nausea, vomiting and abdominal pain. - History of Present Illness History of Present Illness: Patient is a 64 yo female who was referred for dysphagia. Patient with complaints of Dysphagia, nausea, vomiting and abdominal pain. Patient denies dyspepsia, constipation, diarrhea and melena. Last colon was 04/24/2018 which showed internal hemorrhoids and diverticulosis, Last EGD was 04/17/2018 which showed distal esophagitis with esophageal spasm with mild stricture, erosive gastrits. WBC 9.3, Hgb 11.3, Hct 35.1, Plt 154, BUN 18, Creatinine 1.14, T. BIli 0.4, AST 63, ALT 48, ALP 136. 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 - Family History Family Medical History: Hypertension - Social History Does any household member use tobacco: No Alcohol Use: None Drug Use: None - Medications Home Medications: No Known Drug Allergies Allergy (Verified 01/19/20 10:35) CONTINUE taking the following medications cholecalciferol (vitamin D3) 250 mcg PO DAILY 01/19/20 [History] citalopram [Celexa] 40 mg PO DAILY 01/19/20 [History] clonazepam [Klonopin] 0.25 mg PO .QOD 01/19/20 [History] diclofenac sodium [Voltaren] 1 % TOPICAL Q8H PRN 01/19/20 [History] furosemide [Lasix] 40 mg PO BID 01/19/20 [History] levothyroxine [Synthroid] 75 mcg PO DAILY 01/19/20 [History] melatonin 5 mg PO HS 01/19/20 [History] meloxicam 15 mg PO DAILY 01/19/20 [History] olanzapine [Zyprexa] 10 mg PO BID 01/19/20 [History] ondansetron HCl [Zofran] 4 mg PO Q6H PRN 01/19/20 [History] pramipexole [Mirapex] 0.25 mg PO BID 01/19/20 [History] rivaroxaban [Xarelto] 20 mg PO DAILY 01/19/20 [History] - Review of Systems Gastrointestinal: See HPI, Nausea, Vomiting, Abdominal Pain, Other (dysphagia). denies: Diarrhea, Constipation, Melena, Hematochezia - Physical Exam Vital Signs: Temperature 98.4 F Pulse Rate [Right Brachial] 95 Respiratory Rate 18 Blood Pressure [Right Arm] 122/78 Blood Pressure [Left Arm] 140/93 Blood Pressure 150/80 O2 Sat by Pulse Oximetry 92 Oriented: Normal Eyes: Normal Ear: Normal Nose: Normal Throat: Normal Respiratory: Clear Throughout Cardiovascular: Normal Auscultation: Bowel Sounds: Normal Palpation: Normal, Other (no distention). negative: Spleen Enlarged, Liver Enlarged, Mass Pulsatile Tenderness: LUQ Skin: Normal Mood Description: Calm Affect: Normal - Plan Plan: Assessment. 1. Dyshpagia, nausea, vomiting r/o gastric ulcer, esophageal stricture. Plan. 1. Protonix IV, Zofran PRN, IV Hydration, EGd in am. Plan reviewed with Dr. Jo - Allergies Allergies/Adverse Reactions: Allergies Allergy/AdvReac Type Severity Reaction Status Date / Time No Known Drug Allergies Allergy Verified 01/19/20 10:35
[2020-01-20] MEDS: SNACK - Diabetic Appropriate PO SCH (21:00)
[2020-01-21] MEDS: NS 1000 ML 1,000 ML IV SCH ×3 (03:30→22:29)
[2020-01-21 06:05] LABS: BASOPHILS % (AUTO) 0.5 % (0.2-1.0); EOSINOPHILS # (AUTO) 0.3 x10^3/uL (0.0-0.2); EOSINOPHILS % (AUTO) 3.3 % (0.9-2.9); HEMATOCRIT 33.4 % (36.0-47.0); HEMOGLOBIN 10.6 g/dL (12.0-16.0); LYMPHOCYTES # (AUTO) 1.9 X10^3/uL (1.3-2.9); LYMPHOCYTES % (AUTO) 20.8 % (21.0-51.0); MEAN CORPUSCULAR HEMOGLOBIN 32.6 pg (27.0-34.0); MEAN CORPUSCULAR HGB CONC 31.8 g/dL (33.0-35.0); MEAN CORPUSCULAR VOLUME 102.4 fL (80.0-100.0); MEAN PLATELET VOLUME 10.3 fL (7.4-11.0); MONOCYTES # (AUTO) 1.1 x10^3/uL (0.3-0.8); MONOCYTES % (AUTO) 12.4 % (0.0-13.0); NEUTROPHILS # (AUTO) 5.6 x10^3/uL (2.2-4.8); PLATELET COUNT 137 X10^3/uL (150.0-450.0); RED BLOOD COUNT 3.26 X10^6/uL (3.5-5.4); RED CELL DISTRIBUTION WIDTH 14.1 % (11.6-16.5); WHITE BLOOD COUNT 8.9 X10^3/uL (3.6-10.0)
[2020-01-21 06:32] LABS: ALANINE AMINOTRANSFERASE 39 Units/L (12-78); ALBUMIN 2.1 g/dL (3.4-5.0); ALKALINE PHOSPHATASE 120 Units/L (46-116); ASPARTATE AMINO TRANSFERASE 43 Units/L (15-37); BLOOD UREA NITROGEN 15 mg/dL (7-18); CALCIUM 8.4 mg/dL (8.5-10.1); CARBON DIOXIDE 28.6 mmol/L (21-32); CHLORIDE 108 mmol/L (98-107); COR CA(FOR HYPOALB) 9.9 mg/dL (8.5-10.1); CREATININE 1.09 mg/dL (0.55-1.02); SODIUM 143 mmol/L (136-145); TOTAL PROTEIN 6.7 g/dL (6.4-8.2); eGFR NON BLACK RACES 54 (>60)
[2020-01-21] MEDS: CIPRO IV 400 MG PREMIX* 400 MG/200 ML IV.SOLN. IV SCH ×2 (09:37→20:51)
[2020-01-21] MEDS: PEPCID 20 MG IV PREMIX* 20 MG/50 ML BAG IV SCH ×2 (09:37→20:51)
[2020-01-21] MEDS: PROTONIX INJ 40 MG VIAL IVP SCH ×2 (09:37→20:49)
[2020-01-21] MEDS ORDERED: ULTRAM PO PRN (10:24)
[2020-01-21] MEDS ORDERED: ZOFRAN TAB 4 MG PO PRN (10:24)
[2020-01-21] MEDS ORDERED: VOLTAREN 1 % GEL MULTI DOSE TUBE TOP PRN (10:24)
--- NOTE | 2020-01-21 10:24 | PCM.PROG ---
Progress Note - Progress Note for Day of Date of Exam: 01/20/20 - Subjective Subjective: IS BEING TREATED FOR LEUKOCYTOSIS, NAUSEA AND VOMITING, AND DYSPHAGIA. NO GASTRIC OUTLET OBSTRUCTION WAS SEEN ON THE ABDOMEN/PELVIS CT. SHE CONTINUES WITH NAUSEA, BUT DENIES PAIN THIS MORNING. ON EXAMINATION, HEART IS REGULAR IN RATE AND RHYTHM. BILATERAL LUNGS ARE NOTED WITH DIMINISHED LUNG SOUNDS THROUGHOUT. ABDOMEN IS ROUND, SOFT, AND NON-TENDER WITH NORMAL BOWEL SOUNDS NOTED IN ALL QUADRANTS. HER VITALS THIS MORNING ARE: 97.7-96-18-92%RA-114/68. LABS WERE OBTAINED. ABNORMAL LAB VALUES INCLUDE THE FOLLOWING: RBC 3.44, HGB 11.3, HCT 35.1, CARBON DIOXIDE 32.3, CREATININE 1.14, GLUCOSE 127, AST 63, ALK PHOS 136, ALBUMIN 2.3, GLOBULIN 5.3. BLOOD AND URINE CULTURES ARE PENDING. A CONSULTATION WITH IS PENDING. SHE IS CURRENTLY RECEIVING NS AT 125ML/HR, PEPCID 20MG IV Q12H, PROTONIX 40MG IV BID, HUMULIN R SLIDING SCALE, THE POTASSIUM AND MAGNESIUM PROTOCOLS, AND ZOFRAN 4MG IV Q4H PRN. WE WILL START CIPRO 400MG IV Q12H TODAY. WE WILL REVIEW HER HOME MEDICATIONS. OTHERWISE, WE PLAN TO FOLLOW UP WITH AM LABS AND CONTINUE TO MONITOR. - Past Medical Family Social History Past Med/Fam/Surg Hx: No changes since H&P Allergies: Allergies No Known Drug Allergies Allergy (Verified 01/19/20 10:35) - Review of Systems ROS: No change since H&P - Vital Signs and I&O's Vital Signs: Temperature 98.3 F Pulse Rate [Right Brachial] 66 Respiratory Rate 21 Blood Pressure [Right Arm] 124/59 Blood Pressure [Left Arm] 140/93 Blood Pressure 150/80 O2 Sat by Pulse Oximetry 98 Intake and Output: Intake & Output 01/18/20 01/19/20 01/20/20 01/21/20 11:59 11:59 11:59 11:59 Intake Total 709 / 709 Output Total 700 / 700 Balance - Physical Exam Oriented: Normal Eyes: Normal Ear: Normal Nose: Normal Throat: Normal Respiratory: Generalized, Diminished Cardiovascular: Normal : Normal Auscultation: Bowel Sounds: Normal Palpation: Normal Tenderness: LUQ Skin: Normal Musculoskeletal: Motor Deficit Psychiatric: Normal Mood Description: Calm Affect: Normal Speech Pattern: Clear, Appropriate - Laboratory and Diagnostics Result Diagrams: 01/21/20 05:10 01/21/20 05:10 Labs: 01/19/20 10:48 Urine,Clean Catch Urine Culture - Final Laboratory WBC 8.9 X10^3/uL (3.6-10.0) 01/21/20 05:10 RBC 3.26 X10^6/uL (3.5-5.4) L 01/21/20 05:10 Hgb 10.6 g/dL (12.0-16.0) L 01/21/20 05:10 Hct 33.4 % (36.0-47.0) L 01/21/20 05:10 MCV 102.4 fL (80.0-100.0) H 01/21/20 05:10 MCH 32.6 pg (27.0-34.0) 01/21/20 05:10 MCHC 31.8 g/dL (33.0-35.0) L 01/21/20 05:10 RDW 14.1 % (11.6-16.5) 01/21/20 05:10 Plt Count 137 X10^3/uL (150.0-450.0) L 01/21/20 05:10 Plt Count Comment Adequate (ADEQUATE) 01/19/20 10:40 MPV 10.3 fL (7.4-11.0) 01/21/20 05:10 Neut % (Auto) 63.0 % (42.0-75.0) 01/21/20 05:10 Lymph % (Auto) 20.8 % (21.0-51.0) L 01/21/20 05:10 [place] % (Auto) 12.4 % (0.0-13.0) 01/21/20 05:10 Eos % (Auto) 3.3 % (0.9-2.9) H 01/21/20 05:10 Baso % (Auto) 0.5 % (0.2-1.0) 01/21/20 05:10 Neut # (Auto) 5.6 x10^3/uL (2.2-4.8) H 01/21/20 05:10 Lymph # (Auto) 1.9 X10^3/uL (1.3-2.9) 01/21/20 05:10 [place] # (Auto) 1.1 x10^3/uL (0.3-0.8) H 01/21/20 05:10 Eos # (Auto) 0.3 x10^3/uL (0.0-0.2) H 01/21/20 05:10 Baso # (Auto) 0.0 X10^3/uL (0.0-0.1) 01/21/20 05:10 Absolute Nucleated RBC 0.0 /100WBC 01/21/20 05:10 Total Counted 100 01/19/20 10:40 Neutrophils % (Manual) 72 % (39-76) 01/19/20 10:40 Lymphocytes % (Manual) 22 % (13-43) 01/19/20 10:40 Monocytes % (Manual) 6 % (4-9) 01/19/20 10:40 Plt Morphology Comment Normal (NORMAL) 01/19/20 10:40 RBC Morphology Normal (NORMAL) 01/19/20 10:40 Sodium 143 mmol/L (136-145) 01/21/20 05:10 Corrected Sodium TNP 01/21/20 05:10 Potassium 3.4 mmol/L (3.5-5.1) L 01/21/20 05:10 Chloride 108 mmol/L (98-107) H 01/21/20 05:10 Carbon Dioxide 28.6 mmol/L (21-32) 01/21/20 05:10 BUN 15 mg/dL (7-18) 01/21/20 05:10 Creatinine 1.09 mg/dL (0.55-1.02) H 01/21/20 05:10 Est GFR (MDRD) Af Amer > 60 (>60) 01/21/20 05:10 Est GFR (MDRD) Non-Af 54 (>60) L 01/21/20 05:10 Glucose 104 mg/dL (65-99) H 01/21/20 05:10 POC Glucose (mg/dL) 98 mg/dL (65-99) 01/21/20 06:19 Calcium 8.4 mg/dL (8.5-10.1) L 01/21/20 05:10 Corrected Calcium 9.9 mg/dL (8.5-10.1) 01/21/20 05:10 Magnesium 2.4 mg/dL (1.7-2.9) 01/19/20 10:40 Total Bilirubin 0.30 mg/dL (0.2-1.0) 01/21/20 05:10 AST 43 Units/L (15-37) H 01/21/20 05:10 ALT 39 Units/L (12-78) 01/21/20 05:10 Alkaline Phosphatase 120 Units/L (46-116) H 01/21/20 05:10 Total Protein 6.7 g/dL (6.4-8.2) 01/21/20 05:10 Albumin 2.1 g/dL (3.4-5.0) L 01/21/20 05:10 Globulin 4.6 g/dL (2.5-4.5) H 01/21/20 05:10 Albumin/Globulin Ratio 0.5 Ratio (1.1-2.1) L 01/21/20 05:10 Amylase 53 Units/L (25-115) 01/19/20 10:40 Lipase 141 Units/L (73-393) 01/19/20 10:40 Specimen Type Clean catch urine 01/20/20 11:40 Urine Color Yellow (YELLOW) 01/20/20 11:40 Urine Appearance Slightly hazy (CLEAR) 01/20/20 11:40 Urine pH 9.0 (5.0 - 8.0) 01/20/20 11:40 Ur Specific [place] 1.010 (1.000-1.030) 01/20/20 11:40 Urine Protein 2+ (NEGATIVE) 01/20/20 11:40 Urine Glucose (UA) Negative (NEGATIVE) 01/20/20 11:40 Urine Ketones 1+ (NEGATIVE) 01/20/20 11:40 Urine Occult Blood 1+ (NEGATIVE) 01/20/20 11:40 Urine Nitrite Negative (NEGATIVE) 01/20/20 11:40 Urine Bilirubin Negative (NEGATIVE) 01/20/20 11:40 Urine Urobilinogen 2+ (NORMAL) 01/20/20 11:40 Ur Leukocyte Esterase 1+ (NEGATIVE) 01/20/20 11:40 Urine RBC 0-2 /HPF (0-3) 01/19/20 10:48 Urine WBC 0-2 /HPF (0-5) 01/19/20 10:48 Ur Squamous Epith Cells Few /HPF (NEGATIVE) 01/19/20 10:48 Amorphous Sediment 1+ /HPF (NEGATIVE) 01/19/20 10:48 Urine Bacteria Trace /HPF (NEGATIVE) 01/19/20 10:48 Hyaline Casts Many /LPF (NEGATIVE) 01/19/20 10:48 Ur Culture Indicated? Yes/culture set up 01/19/20 10:48 - Plan (1) Leukocytosis Status: Acute Qualifiers: Leukocytosis type: unspecified Qualified Code(s): D72.829 - Elevated white blood cell count, unspecified Plan: NS AT 125ML/HR, CIPRO 400MG IV Q12H, PEPCID 20MG IV Q12H, PROTONIX 40MG IV BID, HUMULIN R SLIDING SCALE, THE POTASSIUM AND MAGNESIUM PROTOCOLS, AND ZOFRAN 4MG IV Q4H PRN. (2) Nausea & vomiting Status: Acute Qualifiers: Vomiting type: unspecified Vomiting Intractability: intractable Qualified Code(s): R11.2 - Nausea with vomiting, unspecified (3) Gastric outlet obstruction Status: Suspected (4) Dysphagia Status: Acute Qualifiers: Dysphagia type: unspecified Qualified Code(s): R13.10 - Dysphagia, unspecified Plan: CONSULT GI, CONTINUE TO MONITOR
[2020-01-21] MEDS ORDERED: COENZYME Q10 PO SCH (10:30)
[2020-01-21] MEDS ORDERED: VITAMIN D3 125 mcg (5,000 UNITS) PO SCH (10:30)
--- NOTE | 2020-01-21 10:39 | PCM.PROG ---
Progress Note - Progress Note for Day of Date of Exam: 01/21/20 - Subjective Subjective: IS BEING TREATED FOR LEUKOCYTOSIS, NAUSEA AND VOMITING, AND DYSPHAGIA. NO GASTRIC OUTLET OBSTRUCTION WAS SEEN ON THE ABDOMEN/PELVIS CT. SHE CONTINUES WITH NAUSEA AND DIFFICULTY SWALLOWING TODAY. ON EXAMINATION, HEART IS REGULAR IN RATE AND RHYTHM. BILATERAL LUNGS ARE NOTED WITH DIMINISHED LUNG SOUNDS THROUGHOUT. ABDOMEN IS ROUND, SOFT, AND NON-TENDER WITH NORMAL BOWEL SOUNDS NOTED IN ALL QUADRANTS. HER VITALS THIS MORNING ARE: 98.3-66-21-98%-124/59. LABS WERE OBTAINED. ABNORMAL LAB VALUES INCLUDE THE FOLLOWING: RBC 3.26, HGB 10.6, HCT 33.4, PLT COUNT 137, POTASSIUM 3.4, CHLORIDE 108, CREATININE 1.09, GLUCOSE 104, CALCIUM 8.4, AST 43, ALK PHOS 120, ALBUMIN 2.1, GLOBULIN 4.6. BLOOD AND URINE CULTURES ARE PENDING. CONSULTED WITH HER YESTERDAY. HE PLANS FOR AN EGD TODAY. WE ARE IN AGREEMENT WITH PLANS. SHE IS CURRENTLY RECEIVING NS AT 125ML/HR, CIPRO 400MG IV Q12H, PEPCID 20MG IV Q12H, PROTONIX 40MG IV BID, HUMULIN R SLIDING SCALE, THE POTASSIUM AND MAGNESIUM MATT COLS, AND ZOFRAN 4MG IV Q4H PRN. WE WILL ADD ALBUMIN 25% IV DAILY TODAY. OTHERWISE, WE PLAN TO FOLLOW UP WITH AM LABS AND CONTINUE TO MONITOR. - Past Medical Family Social History Past Med/Fam/Surg Hx: No changes since H&P Allergies: Allergies No Known Drug Allergies Allergy (Verified 01/19/20 10:35) - Review of Systems ROS: No change since H&P - Vital Signs and I&O's Vital Signs: Temperature 98.3 F Pulse Rate [Right Brachial] 66 Respiratory Rate 21 Blood Pressure [Right Arm] 124/59 Blood Pressure [Left Arm] 140/93 Blood Pressure 150/80 O2 Sat by Pulse Oximetry 98 Intake and Output: Intake & Output 01/18/20 01/19/20 01/20/20 01/21/20 11:59 11:59 11:59 11:59 Intake Total 709 / 709 Output Total 700 / 700 Balance - Physical Exam Oriented: Normal Eyes: Normal Ear: Normal Nose: Normal Throat: Normal Respiratory: Generalized, Diminished Cardiovascular: Normal : Normal Auscultation: Bowel Sounds: Normal Palpation: Normal Tenderness: LUQ Skin: Normal Musculoskeletal: Motor Deficit Psychiatric: Normal Mood Description: Calm Affect: Normal Speech Pattern: Appropriate, Unclear - Laboratory and Diagnostics Result Diagrams: 01/21/20 05:10 01/21/20 05:10 Labs: 01/19/20 10:48 Urine,Clean Catch Urine Culture - Final Laboratory WBC 8.9 X10^3/uL (3.6-10.0) 01/21/20 05:10 RBC 3.26 X10^6/uL (3.5-5.4) L 01/21/20 05:10 Hgb 10.6 g/dL (12.0-16.0) L 01/21/20 05:10 Hct 33.4 % (36.0-47.0) L 01/21/20 05:10 MCV 102.4 fL (80.0-100.0) H 01/21/20 05:10 MCH 32.6 pg (27.0-34.0) 01/21/20 05:10 MCHC 31.8 g/dL (33.0-35.0) L 01/21/20 05:10 RDW 14.1 % (11.6-16.5) 01/21/20 05:10 Plt Count 137 X10^3/uL (150.0-450.0) L 01/21/20 05:10 Plt Count Comment Adequate (ADEQUATE) 01/19/20 10:40 MPV 10.3 fL (7.4-11.0) 01/21/20 05:10 Neut % (Auto) 63.0 % (42.0-75.0) 01/21/20 05:10 Lymph % (Auto) 20.8 % (21.0-51.0) L 01/21/20 05:10 [place] % (Auto) 12.4 % (0.0-13.0) 01/21/20 05:10 Eos % (Auto) 3.3 % (0.9-2.9) H 01/21/20 05:10 Baso % (Auto) 0.5 % (0.2-1.0) 01/21/20 05:10 Neut # (Auto) 5.6 x10^3/uL (2.2-4.8) H 01/21/20 05:10 Lymph # (Auto) 1.9 X10^3/uL (1.3-2.9) 01/21/20 05:10 [place] # (Auto) 1.1 x10^3/uL (0.3-0.8) H 01/21/20 05:10 Eos # (Auto) 0.3 x10^3/uL (0.0-0.2) H 01/21/20 05:10 Baso # (Auto) 0.0 X10^3/uL (0.0-0.1) 01/21/20 05:10 Absolute Nucleated RBC 0.0 /100WBC 01/21/20 05:10 Total Counted 100 01/19/20 10:40 Neutrophils % (Manual) 72 % (39-76) 01/19/20 10:40 Lymphocytes % (Manual) 22 % (13-43) 01/19/20 10:40 Monocytes % (Manual) 6 % (4-9) 01/19/20 10:40 Plt Morphology Comment Normal (NORMAL) 01/19/20 10:40 RBC Morphology Normal (NORMAL) 01/19/20 10:40 Sodium 143 mmol/L (136-145) 01/21/20 05:10 Corrected Sodium TNP 01/21/20 05:10 Potassium 3.4 mmol/L (3.5-5.1) L 01/21/20 05:10 Chloride 108 mmol/L (98-107) H 01/21/20 05:10 Carbon Dioxide 28.6 mmol/L (21-32) 01/21/20 05:10 BUN 15 mg/dL (7-18) 01/21/20 05:10 Creatinine 1.09 mg/dL (0.55-1.02) H 01/21/20 05:10 Est GFR (MDRD) Af Amer > 60 (>60) 01/21/20 05:10 Est GFR (MDRD) Non-Af 54 (>60) L 01/21/20 05:10 Glucose 104 mg/dL (65-99) H 01/21/20 05:10 POC Glucose (mg/dL) 98 mg/dL (65-99) 01/21/20 06:19 Calcium 8.4 mg/dL (8.5-10.1) L 01/21/20 05:10 Corrected Calcium 9.9 mg/dL (8.5-10.1) 01/21/20 05:10 Magnesium 2.4 mg/dL (1.7-2.9) 01/19/20 10:40 Total Bilirubin 0.30 mg/dL (0.2-1.0) 01/21/20 05:10 AST 43 Units/L (15-37) H 01/21/20 05:10 ALT 39 Units/L (12-78) 01/21/20 05:10 Alkaline Phosphatase 120 Units/L (46-116) H 01/21/20 05:10 Total Protein 6.7 g/dL (6.4-8.2) 01/21/20 05:10 Albumin 2.1 g/dL (3.4-5.0) L 01/21/20 05:10 Globulin 4.6 g/dL (2.5-4.5) H 01/21/20 05:10 Albumin/Globulin Ratio 0.5 Ratio (1.1-2.1) L 01/21/20 05:10 Amylase 53 Units/L (25-115) 01/19/20 10:40 Lipase 141 Units/L (73-393) 01/19/20 10:40 Specimen Type Clean catch urine 01/20/20 11:40 Urine Color Yellow (YELLOW) 01/20/20 11:40 Urine Appearance Slightly hazy (CLEAR) 01/20/20 11:40 Urine pH 9.0 (5.0 - 8.0) 01/20/20 11:40 Ur Specific [place] 1.010 (1.000-1.030) 01/20/20 11:40 Urine Protein 2+ (NEGATIVE) 01/20/20 11:40 Urine Glucose (UA) Negative (NEGATIVE) 01/20/20 11:40 Urine Ketones 1+ (NEGATIVE) 01/20/20 11:40 Urine Occult Blood 1+ (NEGATIVE) 01/20/20 11:40 Urine Nitrite Negative (NEGATIVE) 01/20/20 11:40 Urine Bilirubin Negative (NEGATIVE) 01/20/20 11:40 Urine Urobilinogen 2+ (NORMAL) 01/20/20 11:40 Ur Leukocyte Esterase 1+ (NEGATIVE) 01/20/20 11:40 Urine RBC 0-2 /HPF (0-3) 01/19/20 10:48 Urine WBC 0-2 /HPF (0-5) 01/19/20 10:48 Ur Squamous Epith Cells Few /HPF (NEGATIVE) 01/19/20 10:48 Amorphous Sediment 1+ /HPF (NEGATIVE) 01/19/20 10:48 Urine Bacteria Trace /HPF (NEGATIVE) 01/19/20 10:48 Hyaline Casts Many /LPF (NEGATIVE) 01/19/20 10:48 Ur Culture Indicated? Yes/culture set up 01/19/20 10:48 - Plan (1) Leukocytosis Status: Acute Qualifiers: Leukocytosis type: unspecified Qualified Code(s): D72.829 - Elevated white blood cell count, unspecified Plan: NS AT 125ML/HR, CIPRO 400MG IV Q12H, PEPCID 20MG IV Q12H, PROTONIX 40MG IV BID, HUMULIN R SLIDING SCALE, THE POTASSIUM AND MAGNESIUM PROTOCOLS, AND ZOFRAN 4MG IV Q4H PRN. (2) Nausea & vomiting Status: Acute Qualifiers: Vomiting type: unspecified Vomiting Intractability: intractable Qualified Code(s): R11.2 - Nausea with vomiting, unspecified (3) Dysphagia Status: Acute Qualifiers: Dysphagia type: unspecified Qualified Code(s): R13.10 - Dysphagia, u nspecified Plan: EGD TODAY, CONTINUE TO MONITOR
[2020-01-21] MEDS: ALBUMIN HUMAN 25%- 100 ML 100 ML IV SCH (11:10)
[2020-01-21] MEDS: ZYLOPRIM PO SCH ×2 (11:11→20:50)
[2020-01-21] MEDS: ZOCOR TAB 40 MG PO SCH ×2 (11:11→20:56)
[2020-01-21] MEDS: FOLIC ACID TAB 1 MG PO SCH (11:12)
[2020-01-21] MEDS: SYNTHROID 75 mcg TAB PO SCH (11:12)
[2020-01-21] MEDS: MIRAPEX TAB 0.25 MG PO SCH ×2 (11:12→20:51)
[2020-01-21] MEDS: LASIX PO SCH ×2 (11:12→20:50)
[2020-01-21] MEDS: KEPPRA TAB 500 MG PO SCH ×2 (11:12→20:50)
[2020-01-21] MEDS: COLACE CAP 100 MG PO SCH ×2 (11:13→20:51)
[2020-01-21] MEDS: CELEXA PO SCH (11:13)
[2020-01-21] MEDS: MICRO K EXTEN CAP 10 MEQ PO SCH ×2 (11:26→21:05)
[2020-01-21] MEDS: FERROUS GLUCONATE PO SCH (11:26)
[2020-01-21] MEDS ORDERED: NITROSTAT SL PRN (12:27)
[2020-01-21] MEDS ORDERED: DIPRIVAN VIAL 20 ML ONE (12:40)
[2020-01-21] MEDS ORDERED: NEURONTIN CAP 300 MG PO ONE (19:41)
[2020-01-21] MEDS ORDERED: DILANTIN CAP 100 MG EXT REL PO ONE (19:42)
[2020-01-21] MEDS: SNACK - Diabetic Appropriate PO SCH (20:30)
[2020-01-21] MEDS: NEURONTIN CAP 300 MG PO SCH (20:50)
[2020-01-21] MEDS: DILANTIN CAP 100 MG EXT REL PO SCH (20:50)
[2020-01-21] MEDS ORDERED: POTASSIUM CHLORIDE LIQ 20 MEQ UDC PO ONE (21:00)
[2020-01-21] MEDS ORDERED: PATIENT'S HOME MEDICATION (Melatonin 5 MG) PO SCH (21:00)
[2020-01-22] MEDS: NS 1000 ML 1,000 ML IV SCH ×3 (05:24→11:52)
[2020-01-22 06:37] LABS: BASOPHILS % (AUTO) 0.4 % (0.2-1.0); EOSINOPHILS # (AUTO) 0.4 x10^3/uL (0.0-0.2); EOSINOPHILS % (AUTO) 3.8 % (0.9-2.9); HEMATOCRIT 31.4 % (36.0-47.0); HEMOGLOBIN 10.2 g/dL (12.0-16.0); LYMPHOCYTES # (AUTO) 2.2 X10^3/uL (1.3-2.9); LYMPHOCYTES % (AUTO) 23.4 % (21.0-51.0); MEAN CORPUSCULAR HEMOGLOBIN 32.9 pg (27.0-34.0); MEAN CORPUSCULAR HGB CONC 32.5 g/dL (33.0-35.0); MEAN CORPUSCULAR VOLUME 101.2 fL (80.0-100.0); MEAN PLATELET VOLUME 10.2 fL (7.4-11.0); MONOCYTES % (AUTO) 10.9 % (0.0-13.0); NEUTROPHILS # (AUTO) 5.7 x10^3/uL (2.2-4.8); NEUTROPHILS % (AUTO) 61.5 % (42.0-75.0); PLATELET COUNT 136 X10^3/uL (150.0-450.0); RED CELL DISTRIBUTION WIDTH 14.3 % (11.6-16.5); WHITE BLOOD COUNT 9.3 X10^3/uL (3.6-10.0)
[2020-01-22 06:57] LABS: ALANINE AMINOTRANSFERASE 32 Units/L (12-78); ALBUMIN 2.3 g/dL (3.4-5.0); ALKALINE PHOSPHATASE 111 Units/L (46-116); ASPARTATE AMINO TRANSFERASE 33 Units/L (15-37); BLOOD UREA NITROGEN 12 mg/dL (7-18); CALCIUM 8.4 mg/dL (8.5-10.1); CARBON DIOXIDE 26.1 mmol/L (21-32); CHLORIDE 106 mmol/L (98-107); COR CA(FOR HYPOALB) 9.8 mg/dL (8.5-10.1); CREATININE 1.05 mg/dL (0.55-1.02); SODIUM 140 mmol/L (136-145); TOTAL PROTEIN 6.5 g/dL (6.4-8.2); eGFR NON BLACK RACES 56 (>60)
[2020-01-22] MEDS: ALBUMIN HUMAN 25%- 100 ML 100 ML IV SCH (08:56)
[2020-01-22] MEDS: MIRAPEX TAB 0.25 MG PO SCH ×2 (08:57→20:22)
[2020-01-22] MEDS: PROTONIX INJ 40 MG VIAL IVP SCH (08:57)
[2020-01-22] MEDS: KEPPRA TAB 500 MG PO SCH ×2 (08:58→20:21)
[2020-01-22] MEDS: SYNTHROID 75 mcg TAB PO SCH (08:58)
[2020-01-22] MEDS: CELEXA PO SCH (08:58)
[2020-01-22] MEDS: LASIX PO SCH ×2 (08:58→20:21)
[2020-01-22] MEDS: COLACE CAP 100 MG PO SCH ×2 (08:58→20:20)
[2020-01-22] MEDS: ZYLOPRIM PO SCH ×2 (08:58→20:19)
[2020-01-22] MEDS: FOLIC ACID TAB 1 MG PO SCH (08:58)
[2020-01-22] MEDS: PEPCID 20 MG IV PREMIX* 20 MG/50 ML BAG IV SCH (09:00)
[2020-01-22] MEDS: FERROUS GLUCONATE PO SCH (09:00)
[2020-01-22] MEDS: CIPRO IV 400 MG PREMIX* 400 MG/200 ML IV.SOLN. IV SCH (09:00)
--- NOTE | 2020-01-22 11:39 | PCM.PROG ---
Progress Note - Progress Note for Day of Date of Exam: 01/22/20 - Subjective Subjective: IS BEING TREATED FOR LEUKOCYTOSIS, NAUSEA AND VOMITING, AND DYSPHAGIA. NO GASTRIC OUTLET OBSTRUCTION WAS SEEN ON THE ABDOMEN/PELVIS CT. TODAY, SHE IS LYING IN BED WITH EYES CLOSED ON MORNING ROUNDS. SHE AWAKENS EASILY TO VERBAL STIMULI. SHE CONTINUES WITH WEAKNESS, BUT DENIES DYSPHAGIA OR NAUSEA THIS MORNING. ON EXAMINATION, HEART IS REGULAR IN RATE AND RHYTHM. BILATERAL LUNGS ARE NOTED WITH DIMINISHED LUNG SOUNDS THROUGHOUT. ABDOMEN IS ROUND, SOFT, AND NON-TENDER WITH NORMAL BOWEL SOUNDS NOTED IN ALL QUADRANTS. HER VITALS THIS MORNING ARE: 98.7-74-20-96%-126/85. LABS WERE OBTAINED. ABNORMAL LAB VALUES INCLUDE THE FOLLOWING: RBC 3.10, HGB 10.2, HCT 31.4, PLT COUNT 136, POTASSIUM 3.3, CREATININE 1.05, CALCIUM 8.4, ALUBMIN 2.3. BLOOD AND URINE CULTURES ARE PENDING. PERFORMED AN EGD. FINDINGS INCLUDE: Distal esophagitis with a stricture, a medium size hiatal hernia, mild antral gastritis. Gray dilation of the esophagus performed. SHE IS CURRENTLY RECEIVING NS AT 125ML/HR, ALBUMIN 25% IV DAILY, CIPRO 400MG IV Q12H, PEPCID 20MG IV Q12H, PROTONIX 40MG IV BID, HUMULIN R SLIDING SCALE, THE POTASSIUM AND MAGNESIUM PROTOCOLS, AND ZOFRAN 4MG IV Q4H PRN. COVID SWAB IS PENDING. WE WILL PLAN FOR DISCHARGE TOMORROW IF SHE REMAINS STABLE. OTHERWISE, WE PLAN TO FOLLOW UP WITH AM LABS AND CONTINUE TO MONITOR. - Past Medical Family Social History Past Med/Fam/Surg Hx: No changes since H&P Allergies: Allergies No Known Drug Allergies Allergy (Verified 01/19/20 10:35) - Review of Systems ROS: No change since H&P - Vital Signs and I&O's Vital Signs: Temperature 98.7 F Pulse Rate [Right Brachial] 74 Respiratory Rate 20 Blood Pressure [Right Arm] 136/93 Blood Pressure [Left Arm] 126/85 Blood Pressure 150/80 O2 Sat by Pulse Oximetry 96 Intake and Output: Intake & Output 01/19/20 01/20/20 01/21/20 01/22/20 11:59 11:59 11:59 11:59 Intake Total 709 / 709 2192 / 2192 Output Total 700 / 700 1700 / 1700 Balance 492 / 492 - Physical Exam Oriented: Normal Eyes: Normal Ear: Normal Nose: Normal Throat: Normal Respiratory: Generalized, Diminished Cardiovascular: Normal : Normal Auscultation: Bowel Sounds: Normal Tenderness: LUQ Skin: Normal Musculoskeletal: Motor Deficit Psychiatric: Normal Mood Description: Calm Affect: Normal Speech Pattern: Appropriate - Laboratory and Diagnostics Result Diagrams: 01/22/20 05:05 01/22/20 05:05 Labs: 01/19/20 10:40 Blood Blood Culture - Preliminary 01/19/20 10:40 Blood Blood Culture - Preliminary 01/19/20 10:48 Urine,Clean Catch Urine Culture - Final Laboratory WBC 9.3 X10^3/uL (3.6-10.0) 01/22/20 05:05 RBC 3.10 X10^6/uL (3.5-5.4) L 01/22/20 05:05 Hgb 10.2 g/dL (12.0-16.0) L 01/22/20 05:05 Hct 31.4 % (36.0-47.0) L 01/22/20 05:05 MCV 101.2 fL (80.0-100.0) H 01/22/20 05:05 MCH 32.9 pg (27.0-34.0) 01/22/20 05:05 MCHC 32.5 g/dL (33.0-35.0) L 01/22/20 05:05 RDW 14.3 % (11.6-16.5) 01/22/20 05:05 Plt Count 136 X10^3/uL (150.0-450.0) L 01/22/20 05:05 Plt Count Comment Adequate (ADEQUATE) 01/19/20 10:40 MPV 10.2 fL (7.4-11.0) 01/22/20 05:05 Neut % (Auto) 61.5 % (42.0-75.0) 01/22/20 05:05 Lymph % (Auto) 23.4 % (21.0-51.0) 01/22/20 05:05 [place] % (Auto) 10.9 % (0.0-13.0) 01/22/20 05:05 Eos % (Auto) 3.8 % (0.9-2.9) H 01/22/20 05:05 Baso % (Auto) 0.4 % (0.2-1.0) 01/22/20 05:05 Neut # (Auto) 5.7 x10^3/uL (2.2-4.8) H 01/22/20 05:05 Lymph # (Auto) 2.2 X10^3/uL (1.3-2.9) 01/22/20 05:05 [place] # (Auto) 1.0 x10^3/uL (0.3-0.8) H 01/22/20 05:05 Eos # (Auto) 0.4 x10^3/uL (0.0-0.2) H 01/22/20 05:05 Baso # (Auto) 0.0 X10^3/uL (0.0-0.1) 01/22/20 05:05 Absolute Nucleated RBC 0.0 /100WBC 01/22/20 05:05 Total Counted 100 01/19/20 10:40 Neutrophils % (Manual) 72 % (39-76) 01/19/20 10:40 Lymphocytes % (Manual) 22 % (13-43) 01/19/20 10:40 Monocytes % (Manual) 6 % (4-9) 01/19/20 10:40 Plt Morphology Comment Normal (NORMAL) 01/19/20 10:40 RBC Morphology Normal (NORMAL) 01/19/20 10:40 Sodium 140 mmol/L (136-145) 01/22/20 05:05 Corrected Sodium TNP 01/22/20 05:05 Potassium 3.3 mmol/L (3.5-5.1) L 01/22/20 05:05 Chloride 106 mmol/L (98-107) 01/22/20 05:05 Carbon Dioxide 26.1 mmol/L (21-32) 01/22/20 05:05 BUN 12 mg/dL (7-18) 01/22/20 05:05 Creatinine 1.05 mg/dL (0.55-1.02) H 01/22/20 05:05 Est GFR (MDRD) Af Amer > 60 (>60) 01/22/20 05:05 Est GFR (MDRD) Non-Af 56 (>60) L 01/22/20 05:05 Glucose 98 mg/dL (65-99) 01/22/20 05:05 POC Glucose (mg/dL) 92 mg/dL (65-99) 01/22/20 06:00 Calcium 8.4 mg/dL (8.5-10.1) L 01/22/20 05:05 Corrected Calcium 9.8 mg/dL (8.5-10.1) 01/22/20 05:05 Magnesium 2.4 mg/dL (1.7-2.9) 01/19/20 10:40 Total Bilirubin 0.40 mg/dL (0.2-1.0) 01/22/20 05:05 AST 33 Units/L (15-37) 01/22/20 05:05 ALT 32 Units/L (12-78) 01/22/20 05:05 Alkaline Phosphatase 111 Units/L (46-116) 01/22/20 05:05 Total Protein 6.5 g/dL (6.4-8.2) 01/22/20 05:05 Albumin 2.3 g/dL (3.4-5.0) L 01/22/20 05:05 Globulin 4.2 g/dL (2.5-4.5) 01/22/20 05:05 Albumin/Globulin Ratio 0.5 Ratio (1.1-2.1) L 01/22/20 05:05 Amylase 53 Units/L (25-115) 01/19/20 10:40 Lipase 141 Units/L (73-393) 01/19/20 10:40 Specimen Type Clean catch urine 01/20/20 11:40 Urine Color Yellow (YELLOW) 01/20/20 11:40 Urine Appearance Slightly hazy (CLEAR) 01/20/20 11:40 Urine pH 9.0 (5.0 - 8.0) 01/20/20 11:40 Ur Specific [place] 1.010 (1.000-1.030) 01/20/20 11:40 Urine Protein 2+ (NEGATIVE) 01/20/20 11:40 Urine Glucose (UA) Negative (NEGATIVE) 01/20/20 11:40 Urine Ketones 1+ (NEGATIVE) 01/20/20 11:40 Urine Occult Blood 1+ (NEGATIVE) 01/20/20 11:40 Urine Nitrite Negative (NEGATIVE) 01/20/20 11:40 Urine Bilirubin Negative (NEGATIVE) 01/20/20 11:40 Urine Urobilinogen 2+ (NORMAL) 01/20/20 11:40 Ur Leukocyte Esterase 1+ (NEGATIVE) 01/20/20 11:40 Urine RBC 0-2 /HPF (0-3) 01/19/20 10:48 Urine WBC 0-2 /HPF (0-5) 01/19/20 10:48 Ur Squamous Epith Cells Few /HPF (NEGATIVE) 01/19/20 10:48 Amorphous Sediment 1+ /HPF (NEGATIVE) 01/19/20 10:48 Urine Bacteria Trace /HPF (NEGATIVE) 01/19/20 10:48 Hyaline Casts Many /LPF (NEGATIVE) 01/19/20 10:48 Ur Culture Indicated? Yes/culture set up 01/19/20 10:48 Tissue Pathology To follow 01/21/20 12:48 - Plan (1) Leukocytosis Status: Acute Qualifiers: Leukocytosis type: unspecified Qualified Code(s): D72.829 - Elevated white blood cell count, unspecified Plan: NS AT 125ML/HR, CIPRO 400MG IV Q12H, PEPCID 20MG IV Q12H, PROTONIX 40MG IV BID, HUMULIN R SLIDING SCALE, THE POTASSIUM AND MAGNESIUM PROTOCOLS, AND ZOFRAN 4MG IV Q4H PRN. (2) Nausea & vomiting Status: Acute Qualifiers: Vomiting type: unspecified Vomiting Intractability: intractable Qualified Code(s): R11.2 - Nausea with vomiting, unspecified (3) Dysphagia Status: Resolved Qualifiers: Dysphagia type: unspecified Qualified Code(s): R13.10 - Dysphagia, unspecified Plan: CONTINUE TO MONITOR (4) Esophagitis Status: Acute (5) Gastritis Status: Acute Qualifiers: Gastritis type: unspecified gastritis Chronicity: acute Gastritis bleeding: without bleeding Qualified Code(s): K29.00 - Acute gastritis without bleeding
[2020-01-22] MEDS: MICRO K EXTEN CAP 10 MEQ PO SCH ×3 (11:53→20:22)
[2020-01-22] MEDS: K-DUR TAB 20 MEQ PO PRN (12:10)
[2020-01-22] MEDS ORDERED: DULCOLAX SUPPOSITORY 10 MG RECTAL ONE (19:01)
[2020-01-22] MEDS ORDERED: CIPRO TAB 500 MG PO ONE (19:36)
[2020-01-22] MEDS ORDERED: PEPCID TAB 20 MG ONE (19:36)
[2020-01-22] MEDS ORDERED: PROTONIX TAB 40 MG PO ONE (19:36)
[2020-01-22] MEDS: PROTONIX TAB 40 MG PO SCH (20:20)
[2020-01-22] MEDS: PEPCID TAB 20 MG PO SCH (20:20)
[2020-01-22] MEDS: ZOCOR TAB 40 MG PO SCH (20:21)
[2020-01-22] MEDS: DILANTIN CAP 100 MG EXT REL PO SCH (20:21)
[2020-01-22] MEDS: NEURONTIN CAP 300 MG PO SCH (20:21)
[2020-01-22] MEDS: CIPRO TAB 500 MG PO SCH (20:21)
[2020-01-22] MEDS: SNACK - Diabetic Appropriate PO SCH (20:22)
[2020-01-23 06:18] LABS: BASOPHILS % (AUTO) 0.5 % (0.2-1.0); EOSINOPHILS # (AUTO) 0.4 x10^3/uL (0.0-0.2); EOSINOPHILS % (AUTO) 4.9 % (0.9-2.9); HEMATOCRIT 34.2 % (36.0-47.0); LYMPHOCYTES % (AUTO) 23.8 % (21.0-51.0); MEAN CORPUSCULAR HEMOGLOBIN 32.2 pg (27.0-34.0); MEAN CORPUSCULAR VOLUME 100.4 fL (80.0-100.0); MEAN PLATELET VOLUME 10.5 fL (7.4-11.0); MONOCYTES # (AUTO) 0.9 x10^3/uL (0.3-0.8); MONOCYTES % (AUTO) 11.3 % (0.0-13.0); NEUTROPHILS % (AUTO) 59.5 % (42.0-75.0); PLATELET COUNT 151 X10^3/uL (150.0-450.0); RED BLOOD COUNT 3.41 X10^6/uL (3.5-5.4); RED CELL DISTRIBUTION WIDTH 14.4 % (11.6-16.5); WHITE BLOOD COUNT 8.4 X10^3/uL (3.6-10.0)
[2020-01-23 06:30] LABS: ALANINE AMINOTRANSFERASE 30 Units/L (12-78); ALBUMIN 2.5 g/dL (3.4-5.0); ALKALINE PHOSPHATASE 117 Units/L (46-116); ASPARTATE AMINO TRANSFERASE 34 Units/L (15-37); BLOOD UREA NITROGEN 11 mg/dL (7-18); CALCIUM 8.6 mg/dL (8.5-10.1); CARBON DIOXIDE 25.4 mmol/L (21-32); CHLORIDE 102 mmol/L (98-107); COR CA(FOR HYPOALB) 9.8 mg/dL (8.5-10.1); CREATININE 1.12 mg/dL (0.55-1.02); SODIUM 136 mmol/L (136-145); TOTAL PROTEIN 7.1 g/dL (6.4-8.2); eGFR NON BLACK RACES 52 (>60)
[2020-01-23] MEDS: COLACE CAP 100 MG PO SCH ×2 (09:55→21:21)
[2020-01-23] MEDS: SYNTHROID 75 mcg TAB PO SCH (09:55)
[2020-01-23] MEDS: LASIX PO SCH ×2 (09:56→21:21)
[2020-01-23] MEDS: CELEXA PO SCH (09:56)
[2020-01-23] MEDS: ZYLOPRIM PO SCH ×2 (09:56→21:21)
[2020-01-23] MEDS: MIRAPEX TAB 0.25 MG PO SCH ×2 (09:56→21:20)
[2020-01-23] MEDS: PROTONIX TAB 40 MG PO SCH ×2 (09:56→21:21)
[2020-01-23] MEDS: KEPPRA TAB 500 MG PO SCH ×2 (09:57→21:21)
[2020-01-23] MEDS: FERROUS GLUCONATE PO SCH (09:57)
[2020-01-23] MEDS: PEPCID TAB 20 MG PO SCH ×2 (09:57→21:20)
[2020-01-23] MEDS: CIPRO TAB 500 MG PO SCH ×2 (09:57→21:21)
[2020-01-23] MEDS: MICRO K EXTEN CAP 10 MEQ PO SCH ×2 (09:58→21:20)
[2020-01-23] MEDS ORDERED: POTASSIUM CHLORIDE LIQ 20 MEQ UDC ONE (10:06)
[2020-01-23] MEDS: FOLIC ACID TAB 1 MG PO SCH (11:28)
[2020-01-23] MEDS: ZOCOR TAB 40 MG PO SCH (21:20)
[2020-01-23] MEDS: DILANTIN CAP 100 MG EXT REL PO SCH (21:20)
[2020-01-23] MEDS: NEURONTIN CAP 300 MG PO SCH (21:21)
[2020-01-23] MEDS: SNACK - Diabetic Appropriate PO SCH (21:22)
[2020-01-23] MEDS ORDERED: MAGNESIUM SULFATE 1 GRAM/100 mL PREMIX 1 GM/100 ML BAG IV PRN (21:51)
[2020-01-24] MEDS ORDERED: MAG-OX TAB ONE ×2 (00:20→05:34)
[2020-01-24] MEDS: MAG-OX TAB PO SCH ×4 (00:25→17:10)
[2020-01-24 06:15] LABS: BASOPHILS % (AUTO) 0.4 % (0.2-1.0); EOSINOPHILS # (AUTO) 0.3 x10^3/uL (0.0-0.2); EOSINOPHILS % (AUTO) 4.1 % (0.9-2.9); HEMATOCRIT 33.9 % (36.0-47.0); HEMOGLOBIN 10.9 g/dL (12.0-16.0); LYMPHOCYTES # (AUTO) 2.1 X10^3/uL (1.3-2.9); LYMPHOCYTES % (AUTO) 25.4 % (21.0-51.0); MEAN CORPUSCULAR HEMOGLOBIN 32.5 pg (27.0-34.0); MEAN CORPUSCULAR HGB CONC 32.1 g/dL (33.0-35.0); MEAN CORPUSCULAR VOLUME 101.1 fL (80.0-100.0); MEAN PLATELET VOLUME 11.2 fL (7.4-11.0); MONOCYTES % (AUTO) 12.4 % (0.0-13.0); NEUTROPHILS # (AUTO) 4.8 x10^3/uL (2.2-4.8); NEUTROPHILS % (AUTO) 57.7 % (42.0-75.0); PLATELET COUNT 143 X10^3/uL (150.0-450.0); RED BLOOD COUNT 3.36 X10^6/uL (3.5-5.4); RED CELL DISTRIBUTION WIDTH 14.4 % (11.6-16.5); WHITE BLOOD COUNT 8.3 X10^3/uL (3.6-10.0)
[2020-01-24 06:30] LABS: ALBUMIN 2.5 g/dL (3.4-5.0); CALCIUM 8.3 mg/dL (8.5-10.1); CARBON DIOXIDE 26.2 mmol/L (21-32); COR CA(FOR HYPOALB) 9.5 mg/dL (8.5-10.1); CREATININE 1.4 mg/dL (0.55-1.02); MAGNESIUM 1.6 mg/dL (1.7-2.9); TOTAL PROTEIN 6.8 g/dL (6.4-8.2)
[2020-01-24] MEDS: PEPCID TAB 20 MG PO SCH ×2 (09:50→21:47)
[2020-01-24] MEDS: COLACE CAP 100 MG PO SCH ×2 (09:51→21:47)
[2020-01-24] MEDS: CELEXA PO SCH (09:51)
[2020-01-24] MEDS: KEPPRA TAB 500 MG PO SCH ×2 (09:52→21:48)
[2020-01-24] MEDS: SYNTHROID 75 mcg TAB PO SCH (09:52)
[2020-01-24] MEDS: MIRAPEX TAB 0.25 MG PO SCH ×2 (09:52→21:46)
[2020-01-24] MEDS: LASIX PO SCH ×2 (09:52→21:48)
[2020-01-24] MEDS: PROTONIX TAB 40 MG PO SCH ×2 (09:52→21:47)
[2020-01-24] MEDS: CIPRO TAB 500 MG PO SCH ×2 (09:52→21:47)
[2020-01-24] MEDS: FOLIC ACID TAB 1 MG PO SCH (09:53)
[2020-01-24] MEDS: ZYLOPRIM PO SCH ×2 (09:53→21:48)
[2020-01-24] MEDS: MICRO K EXTEN CAP 10 MEQ PO SCH ×2 (09:53→21:47)
[2020-01-24] MEDS: FERROUS GLUCONATE PO SCH (09:53)
[2020-01-24] MEDS: K-DUR TAB 20 MEQ PO PRN (12:51)
[2020-01-24] MEDS: NEURONTIN CAP 300 MG PO SCH (21:46)
[2020-01-24] MEDS: DILANTIN CAP 100 MG EXT REL PO SCH (21:46)
[2020-01-24] MEDS: ZOCOR TAB 40 MG PO SCH (21:47)
[2020-01-24] MEDS: SNACK - Diabetic Appropriate PO SCH (21:48)
--- NOTE | 2020-01-24 23:27 | PCM.PROG ---
Progress Note - Progress Note for Day of Date of Exam: 01/23/20 - Subjective Subjective: IS BEING TREATED FOR LEUKOCYTOSIS, NAUSEA AND VOMITING, GASTRITIS, AND DYSPHAGIA. DYSPHAGIA HAS RESOLVED AND WBC HAS RETURNED TO NORMAL. TODAY, SHE IS LYING IN BED WITH EYES CLOSED ON MORNING ROUNDS. SHE AWAKENS EASILY TO VERBAL STIMULI. SHE CONTINUES WITH WEAKNESS AND NAUSEA TODAY. ON EXAMINATION, HEART IS REGULAR IN RATE AND RHYTHM. BILATERAL LUNGS ARE NOTED WITH DIMINISHED LUNG SOUNDS THROUGHOUT. ABDOMEN IS ROUND, SOFT, AND NON-TENDER WITH NORMAL BOWEL SOUNDS NOTED IN ALL QUADRANTS. HER VITALS THIS MORNING ARE: 100.0-57-20-96%-119/67. LABS WERE OBTAINED. ABNORMAL LAB VALUES INCLUDE THE FOLLOWING: RBC 3.41, HGB 11.0, HCT 34.2, POTASSIUM 3.3, CREATININE 1.12, GLUCOSE 102, MAGNESIUM 1.6, ALK PHOS 117, ALBUMIN 2.5, GLOBULIN 4.6. BLOOD CULTURES ARE PENDING. SHE IS CURRENTLY RECEIVING NS AT 125ML/HR, ALBUMIN 25% IV DAILY, CIPRO 400MG IV Q12H, PEPCID 20MG IV Q12H, PROTONIX 40MG IV BID, HUMULIN R SLIDING SCALE, THE POTASSIUM AND MAGNESIUM PROTOCOLS, AND ZOFRAN 4MG IV Q4H PRN. COVID SWAB IS PENDING. WE WILL CONTINUE WITH ANTIBIOTICS, NAUSEA MEDICATIONS, AND CURRENT PLAN OF CARE TODAY. OTHERWISE, WE PLAN TO FOLLOW UP WITH AM LABS AND CONTINUE TO MONITOR. - Past Medical Family Social History Past Med/Fam/Surg Hx: No changes since H&P Allergies: Allergies No Known Drug Allergies Allergy (Verified 01/19/20 10:35) - Review of Systems ROS: No change since H&P - Vital Signs and I&O's Vital Signs: Temperature 97.7 F Pulse Rate [Right Brachial] 95 Respiratory Rate 22 Blood Pressure [Right Arm] 129/78 Blood Pressure [Left Arm] 122/71 Blood Pressure 150/80 O2 Sat by Pulse Oximetry 95 Intake and Output: Intake & Output 01/22/20 01/23/20 01/24/20 01/25/20 11:59 11:59 11:59 11:59 Intake Total 2192 / 2192 780 / 780 360 / 360 360 / 360 Output Total 1700 / 1700 3400 / 3400 975 / 975 300 / 300 Balance 492 / 492 -2620 / -2620 -615 / -615 - Physical Exam Oriented: Normal Eyes: Normal Ear: Normal Nose: Normal Throat: Normal Respiratory: Generalized, Diminished Cardiovascular: Normal : Normal Auscultation: Bowel Sounds: Normal Tenderness: LUQ Skin: Normal Musculoskeletal: Motor Deficit Psychiatric: Normal Mood Description: Calm Affect: Normal Speech Pattern: Appropriate - Laboratory and Diagnostics Result Diagrams: 01/24/20 05:08 01/24/20 05:08 Labs: 01/19/20 10:40 Blood Blood Culture - Preliminary 01/19/20 10:40 Blood Blood Culture - Preliminary 01/19/20 10:48 Urine,Clean Catch Urine Culture - Final Laboratory WBC 8.3 X10^3/uL (3.6-10.0) 01/24/20 05:08 RBC 3.36 X10^6/uL (3.5-5.4) L 01/24/20 05:08 Hgb 10.9 g/dL (12.0-16.0) L 01/24/20 05:08 Hct 33.9 % (36.0-47.0) L 01/24/20 05:08 MCV 101.1 fL (80.0-100.0) H 01/24/20 05:08 MCH 32.5 pg (27.0-34.0) 01/24/20 05:08 MCHC 32.1 g/dL (33.0-35.0) L 01/24/20 05:08 RDW 14.4 % (11.6-16.5) 01/24/20 05:08 Plt Count 143 X10^3/uL (150.0-450.0) L 01/24/20 05:08 Plt Count Comment Adequate (ADEQUATE) 01/19/20 10:40 MPV 11.2 fL (7.4-11.0) H 01/24/20 05:08 Neut % (Auto) 57.7 % (42.0-75.0) 01/24/20 05:08 Lymph % (Auto) 25.4 % (21.0-51.0) 01/24/20 05:08 [place] % (Auto) 12.4 % (0.0-13.0) 01/24/20 05:08 Eos % (Auto) 4.1 % (0.9-2.9) H 01/24/20 05:08 Baso % (Auto) 0.4 % (0.2-1.0) 01/24/20 05:08 Neut # (Auto) 4.8 x10^3/uL (2.2-4.8) 01/24/20 05:08 Lymph # (Auto) 2.1 X10^3/uL (1.3-2.9) 01/24/20 05:08 [place] # (Auto) 1.0 x10^3/uL (0.3-0.8) H 01/24/20 05:08 Eos # (Auto) 0.3 x10^3/uL (0.0-0.2) H 01/24/20 05:08 Baso # (Auto) 0.0 X10^3/uL (0.0-0.1) 01/24/20 05:08 Absolute Nucleated RBC 0.0 /100WBC 01/24/20 05:08 Total Counted 100 01/19/20 10:40 Neutrophils % (Manual) 72 % (39-76) 01/19/20 10:40 Lymphocytes % (Manual) 22 % (13-43) 01/19/20 10:40 Monocytes % (Manual) 6 % (4-9) 01/19/20 10:40 Plt Morphology Comment Normal (NORMAL) 01/19/20 10:40 RBC Morphology Normal (NORMAL) 01/19/20 10:40 Sodium 134 mmol/L (136-145) L 01/24/20 05:08 Corrected Sodium 135 mmol/L (136-145) L 01/24/20 05:08 Potassium 3.3 mmol/L (3.5-5.1) L 01/24/20 05:08 Chloride 101 mmol/L (98-107) 01/24/20 05:08 Carbon Dioxide 26.2 mmol/L (21-32) 01/24/20 05:08 BUN 13 mg/dL (7-18) 01/24/20 05:08 Creatinine 1.40 mg/dL (0.55-1.02) H 01/24/20 05:08 Est GFR (MDRD) Af Amer 49 (>60) L 01/24/20 05:08 Est GFR (MDRD) Non-Af 40 (>60) L 01/24/20 05:08 Glucose 133 mg/dL (65-99) H 01/24/20 05:08 POC Glucose (mg/dL) 135 mg/dL (65-99) H 01/24/20 21:54 Calcium 8.3 mg/dL (8.5-10.1) L 01/24/20 05:08 Corrected Calcium 9.5 mg/dL (8.5-10.1) 01/24/20 05:08 Magnesium 1.6 mg/dL (1.7-2.9) L 01/24/20 05:08 Total Bilirubin 0.30 mg/dL (0.2-1.0) 01/24/20 05:08 AST 39 Units/L (15-37) H 01/24/20 05:08 ALT 36 Units/L (12-78) 01/24/20 05:08 Alkaline Phosphatase 116 Units/L (46-116) 01/24/20 05:08 Total Protein 6.8 g/dL (6.4-8.2) 01/24/20 05:08 Albumin 2.5 g/dL (3.4-5.0) L 01/24/20 05:08 Globulin 4.3 g/dL (2.5-4.5) 01/24/20 05:08 Albumin/Globulin Ratio 0.6 Ratio (1.1-2.1) L 01/24/20 05:08 Amylase 53 Units/L (25-115) 01/19/20 10:40 Lipase 141 Units/L (73-393) 01/19/20 10:40 Specimen Type Clean catch urine 01/20/20 11:40 Urine Color Yellow (YELLOW) 01/20/20 11:40 Urine Appearance Slightly hazy (CLEAR) 01/20/20 11:40 Urine pH 9.0 (5.0 - 8.0) 01/20/20 11:40 Ur Specific [place] 1.010 (1.000-1.030) 01/20/20 11:40 Urine Protein 2+ (NEGATIVE) 01/20/20 11:40 Urine Glucose (UA) Negative (NEGATIVE) 01/20/20 11:40 Urine Ketones 1+ (NEGATIVE) 01/20/20 11:40 Urine Occult Blood 1+ (NEGATIVE) 01/20/20 11:40 Urine Nitrite Negative (NEGATIVE) 01/20/20 11:40 Urine Bilirubin Negative (NEGATIVE) 01/20/20 11:40 Urine Urobilinogen 2+ (NORMAL) 01/20/20 11:40 Ur Leukocyte Esterase 1+ (NEGATIVE) 01/20/20 11:40 Urine RBC 0-2 /HPF (0-3) 01/19/20 10:48 Urine WBC 0-2 /HPF (0-5) 01/19/20 10:48 Ur Squamous Epith Cells Few /HPF (NEGATIVE) 01/19/20 10:48 Amorphous Sediment 1+ /HPF (NEGATIVE) 01/19/20 10:48 Urine Bacteria Trace /HPF (NEGATIVE) 01/19/20 10:48 Hyaline Casts Many /LPF (NEGATIVE) 01/19/20 10:48 Ur Culture Indicated? Yes/culture set up 01/19/20 10:48 Tissue Pathology To follow 01/21/20 12:48 - Plan (1) Leukocytosis Status: Acute Qualifiers: Leukocytosis type: unspecified Qualified Code(s): D72.829 - Elevated white blood cell count, unspecified Plan: NS AT 125ML/HR, CIPRO 400MG IV Q12H, PEPCID 20MG IV Q12H, PROTONIX 40MG IV BID, HUMULIN R SLIDING SCALE, THE POTASSIUM AND MAGNESIUM PROTOCOLS, AND ZOFRAN 4MG IV Q4H PRN. (2) Nausea & vomiting Status: Acute Qualifiers: Vomiting type: unspecified Vomiting Intractability: intractable Qualified Code(s): R11.2 - Nausea with vomiting, unspecified (3) Dysphagia Status: Resolved Qualifiers: Dysphagia type: unspecified Qualified Code(s): R13.10 - Dysphagia, unspecified Plan: CONTINUE TO MONITOR (4) Esophagitis Status: Acute (5) Gastritis Status: Acute Qualifiers: Gastritis type: unspecified gastritis Chronicity: acute Gastritis bleeding: without bleeding Qualified Code(s): K29.00 - Acute gastritis without bleeding
--- NOTE | 2020-01-24 23:30 | PCM.PROG ---
Progress Note - Progress Note for Day of Date of Exam: 01/24/20 - Subjective Subjective: IS BEING TREATED FOR LEUKOCYTOSIS, NAUSEA AND VOMITING, AND GASTRITIS. WBC HAS RETURNED TO NORMAL. TODAY, SHE IS ALERT AND ORIENTED, LYING IN BED ON MORNING ROUNDS. SHE CONTINUES WITH WEAKNESS AND NAUSEA TODAY. SYMPTOMS HAVE SLIGHTLY IMPROVED TODAY. ON EXAMINATION, HEART IS REGULAR IN RATE AND RHYTHM. BILATERAL LUNGS ARE NOTED WITH DIMINISHED LUNG SOUNDS THROUGHOUT. ABDOMEN IS ROUND, SOFT, AND NON-TENDER WITH NORMAL BOWEL SOUNDS NOTED IN ALL QUADRANTS. HER VITALS THIS MORNING ARE: 97.7-89-20-98%-105/56. LABS WERE OBTAINED. ABNORMAL LAB VALUES INCLUDE THE FOLLOWING: RBC 3.36, HGB 10.9, HCT 33.9, SODIUM 134, POTASSIUM 3.3, CREATININE 1.40, GLUCOSE 133, CALCIUM 8.3, MAGNESIUM 1.6, AST 39, ALBUMIN 2.5. BLOOD CULTURES ARE PENDING. SHE IS CURRENTLY RECEIVING NS AT 125ML/HR, ALBUMIN 25% IV DAILY, CIPRO 400MG IV Q12H, PEPCID 20MG IV Q12H, PROTONIX 40MG IV BID, HUMULIN R SLIDING SCALE, THE POTASSIUM AND MAGNESIUM PROTOCOLS, AND ZOFRAN 4MG IV Q4H PRN. COVID SWAB IS PENDING. WE WILL CONTINUE WITH ANTIBIOTICS, NAUSEA MEDICATIONS, AND CURRENT PLAN OF CARE TODAY. OTHERWISE, WE PLAN TO FOLLOW UP WITH AM LABS AND CONTINUE TO MONITOR. - Past Medical Family Social History Past Med/Fam/Surg Hx: No changes since H&P Allergies: Allergies No Known Drug Allergies Allergy (Verified 01/19/20 10:35) - Review of Systems ROS: No change since H&P - Vital Signs and I&O's Vital Signs: Temperature 97.7 F Pulse Rate [Right Brachial] 95 Respiratory Rate 22 Blood Pressure [Right Arm] 129/78 Blood Pressure [Left Arm] 122/71 Blood Pressure 150/80 O2 Sat by Pulse Oximetry 95 Intake and Output: Intake & Output 01/22/20 01/23/20 01/24/20 01/25/20 11:59 11:59 11:59 11:59 Intake Total 2192 / 2192 780 / 780 360 / 360 360 / 360 Output Total 1700 / 1700 3400 / 3400 975 / 975 300 / 300 Balance 492 / 492 -2620 / -2620 -615 / -615 60 / 60 - Physical Exam Oriented: Normal Eyes: Normal Ear: Normal Nose: Normal Throat: Normal Respiratory: Generalized, Diminished Cardiovascular: Normal : Normal Auscultation: Bowel Sounds: Normal Tenderness: LUQ Skin: Normal Musculoskeletal: Motor Deficit Psychiatric: Normal Mood Description: Calm Affect: Normal Speech Pattern: Appropriate - Laboratory and Diagnostics Result Diagrams: 01/24/20 05:08 01/24/20 05:08 Labs: 01/19/20 10:40 Blood Blood Culture - Preliminary 01/19/20 10:40 Blood Blood Culture - Preliminary 01/19/20 10:48 Urine,Clean Catch Urine Culture - Final Laboratory WBC 8.3 X10^3/uL (3.6-10.0) 01/24/20 05:08 RBC 3.36 X10^6/uL (3.5-5.4) L 01/24/20 05:08 Hgb 10.9 g/dL (12.0-16.0) L 01/24/20 05:08 Hct 33.9 % (36.0-47.0) L 01/24/20 05:08 MCV 101.1 fL (80.0-100.0) H 01/24/20 05:08 MCH 32.5 pg (27.0-34.0) 01/24/20 05:08 MCHC 32.1 g/dL (33.0-35.0) L 01/24/20 05:08 RDW 14.4 % (11.6-16.5) 01/24/20 05:08 Plt Count 143 X10^3/uL (150.0-450.0) L 01/24/20 05:08 Plt Count Comment Adequate (ADEQUATE) 01/19/20 10:40 MPV 11.2 fL (7.4-11.0) H 01/24/20 05:08 Neut % (Auto) 57.7 % (42.0-75.0) 01/24/20 05:08 Lymph % (Auto) 25.4 % (21.0-51.0) 01/24/20 05:08 [place] % (Auto) 12.4 % (0.0-13.0) 01/24/20 05:08 Eos % (Auto) 4.1 % (0.9-2.9) H 01/24/20 05:08 Baso % (Auto) 0.4 % (0.2-1.0) 01/24/20 05:08 Neut # (Auto) 4.8 x10^3/uL (2.2-4.8) 01/24/20 05:08 Lymph # (Auto) 2.1 X10^3/uL (1.3-2.9) 01/24/20 05:08 [place] # (Auto) 1.0 x10^3/uL (0.3-0.8) H 01/24/20 05:08 Eos # (Auto) 0.3 x10^3/uL (0.0-0.2) H 01/24/20 05:08 Baso # (Auto) 0.0 X10^3/uL (0.0-0.1) 01/24/20 05:08 Absolute Nucleated RBC 0.0 /100WBC 01/24/20 05:08 Total Counted 100 01/19/20 10:40 Neutrophils % (Manual) 72 % (39-76) 01/19/20 10:40 Lymphocytes % (Manual) 22 % (13-43) 01/19/20 10:40 Monocytes % (Manual) 6 % (4-9) 01/19/20 10:40 Plt Morphology Comment Normal (NORMAL) 01/19/20 10:40 RBC Morphology Normal (NORMAL) 01/19/20 10:40 Sodium 134 mmol/L (136-145) L 01/24/20 05:08 Corrected Sodium 135 mmol/L (136-145) L 01/24/20 05:08 Potassium 3.3 mmol/L (3.5-5.1) L 01/24/20 05:08 Chloride 101 mmol/L (98-107) 01/24/20 05:08 Carbon Dioxide 26.2 mmol/L (21-32) 01/24/20 05:08 BUN 13 mg/dL (7-18) 01/24/20 05:08 Creatinine 1.40 mg/dL (0.55-1.02) H 01/24/20 05:08 Est GFR (MDRD) Af Amer 49 (>60) L 01/24/20 05:08 Est GFR (MDRD) Non-Af 40 (>60) L 01/24/20 05:08 Glucose 133 mg/dL (65-99) H 01/24/20 05:08 POC Glucose (mg/dL) 135 mg/dL (65-99) H 01/24/20 21:54 Calcium 8.3 mg/dL (8.5-10.1) L 01/24/20 05:08 Corrected Calcium 9.5 mg/dL (8.5-10.1) 01/24/20 05:08 Magnesium 1.6 mg/dL (1.7-2.9) L 01/24/20 05:08 Total Bilirubin 0.30 mg/dL (0.2-1.0) 01/24/20 05:08 AST 39 Units/L (15-37) H 01/24/20 05:08 ALT 36 Units/L (12-78) 01/24/20 05:08 Alkaline Phosphatase 116 Units/L (46-116) 01/24/20 05:08 Total Protein 6.8 g/dL (6.4-8.2) 01/24/20 05:08 Albumin 2.5 g/dL (3.4-5.0) L 01/24/20 05:08 Globulin 4.3 g/dL (2.5-4.5) 01/24/20 05:08 Albumin/Globulin Ratio 0.6 Ratio (1.1-2.1) L 01/24/20 05:08 Amylase 53 Units/L (25-115) 01/19/20 10:40 Lipase 141 Units/L (73-393) 01/19/20 10:40 Specimen Type Clean catch urine 01/20/20 11:40 Urine Color Yellow (YELLOW) 01/20/20 11:40 Urine Appearance Slightly hazy (CLEAR) 01/20/20 11:40 Urine pH 9.0 (5.0 - 8.0) 01/20/20 11:40 Ur Specific [place] 1.010 (1.000-1.030) 01/20/20 11:40 Urine Protein 2+ (NEGATIVE) 01/20/20 11:40 Urine Glucose (UA) Negative (NEGATIVE) 01/20/20 11:40 Urine Ketones 1+ (NEGATIVE) 01/20/20 11:40 Urine Occult Blood 1+ (NEGATIVE) 01/20/20 11:40 Urine Nitrite Negative (NEGATIVE) 01/20/20 11:40 Urine Bilirubin Negative (NEGATIVE) 01/20/20 11:40 Urine Urobilinogen 2+ (NORMAL) 01/20/20 11:40 Ur Leukocyte Esterase 1+ (NEGATIVE) 01/20/20 11:40 Urine RBC 0-2 /HPF (0-3) 01/19/20 10:48 Urine WBC 0-2 /HPF (0-5) 01/19/20 10:48 Ur Squamous Epith Cells Few /HPF (NEGATIVE) 01/19/20 10:48 Amorphous Sediment 1+ /HPF (NEGATIVE) 01/19/20 10:48 Urine Bacteria Trace /HPF (NEGATIVE) 01/19/20 10:48 Hyaline Casts Many /LPF (NEGATIVE) 01/19/20 10:48 Ur Culture Indicated? Yes/culture set up 01/19/20 10:48 Tissue Pathology To follow 01/21/20 12:48 - Plan (1) Leukocytosis Status: Acute Qualifiers: Leukocytosis type: unspecified Qualified Code(s): D72.829 - Elevated white blood cell count, unspecified Plan: NS AT 125ML/HR, CIPRO 400MG IV Q12H, PEPCID 20MG IV Q12H, PROTONIX 40MG IV BID, HUMULIN R SLIDING SCALE, THE POTASSIUM AND MAGNESIUM PROTOCOLS, AND ZOFRAN 4MG IV Q4H PRN. (2) Nausea & vomiting Status: Acute Qualifiers: Vomiting type: unspecified Vomiting Intractability: intractable Qualified Code(s): R11.2 - Nausea with vomiting, unspecified (3) Dysphagia Status: Resolved Qualifiers: Dysphagia type: unspecified Qualified Code(s): R13.10 - Dysphagia, unspecified Plan: CONTINUE TO MONITOR (4) Esophagitis Status: Acute (5) Gastritis Status: Acute Qualifiers: Gastritis type: unspecified gastritis Chronicity: acute Gastritis bleeding: without bleeding Qualified Code(s): K29.00 - Acute gastritis without bleeding
[2020-01-25 06:04] LABS: BASOPHILS # (AUTO) 0.1 X10^3/uL (0.0-0.1); BASOPHILS % (AUTO) 0.8 % (0.2-1.0); EOSINOPHILS # (AUTO) 0.4 x10^3/uL (0.0-0.2); EOSINOPHILS % (AUTO) 5.3 % (0.9-2.9); HEMATOCRIT 33.8 % (36.0-47.0); HEMOGLOBIN 10.9 g/dL (12.0-16.0); LYMPHOCYTES # (AUTO) 2.5 X10^3/uL (1.3-2.9); LYMPHOCYTES % (AUTO) 30.6 % (21.0-51.0); MEAN CORPUSCULAR HEMOGLOBIN 32.3 pg (27.0-34.0); MEAN CORPUSCULAR HGB CONC 32.2 g/dL (33.0-35.0); MEAN CORPUSCULAR VOLUME 100.5 fL (80.0-100.0); MEAN PLATELET VOLUME 11.1 fL (7.4-11.0); MONOCYTES # (AUTO) 1.1 x10^3/uL (0.3-0.8); NEUTROPHILS % (AUTO) 49.3 % (42.0-75.0); PLATELET COUNT 151 X10^3/uL (150.0-450.0); RED BLOOD COUNT 3.36 X10^6/uL (3.5-5.4); RED CELL DISTRIBUTION WIDTH 14.2 % (11.6-16.5); WHITE BLOOD COUNT 8.2 X10^3/uL (3.6-10.0)
[2020-01-25] MEDS: MAG-OX TAB PO SCH ×2 (06:20→13:00)
[2020-01-25 06:37] LABS: ALBUMIN 2.5 g/dL (3.4-5.0); CALCIUM 8.8 mg/dL (8.5-10.1); CARBON DIOXIDE 26.3 mmol/L (21-32); CREATININE 1.26 mg/dL (0.55-1.02); MAGNESIUM 1.7 mg/dL (1.7-2.9)
[2020-01-25] MEDS: COLACE CAP 100 MG PO SCH (09:32)
[2020-01-25] MEDS: FOLIC ACID TAB 1 MG PO SCH (09:32)
[2020-01-25] MEDS: CELEXA PO SCH (09:37)
[2020-01-25] MEDS: ZYLOPRIM PO SCH (09:37)
[2020-01-25] MEDS: CIPRO TAB 500 MG PO SCH (09:38)
[2020-01-25] MEDS: PROTONIX TAB 40 MG PO SCH (09:38)
[2020-01-25] MEDS: LASIX PO SCH (09:38)
[2020-01-25] MEDS: MIRAPEX TAB 0.25 MG PO SCH (09:38)
[2020-01-25] MEDS: FERROUS GLUCONATE PO SCH (09:39)
[2020-01-25] MEDS: SYNTHROID 75 mcg TAB PO SCH (09:39)
[2020-01-25] MEDS: PEPCID TAB 20 MG PO SCH (09:39)
[2020-01-25] MEDS: KEPPRA TAB 500 MG PO SCH (09:39)
[2020-01-25] MEDS: MICRO K EXTEN CAP 10 MEQ PO SCH (09:39)
[2020-01-25] MEDS ORDERED: DULCOLAX SUPPOSITORY 10 MG RECTAL ONE (13:00)
[2020-01-25] MEDS ORDERED: DULCOLAX SUPPOSITORY 10 MG ONE (13:03)
[2020-01-25 14:57] VITALS: BP 101/56
== END 2020-01-25 14:00 | DRG 392 ==
LOC: MED/SURG
PROVIDERS: ADMIT Internal Medicine; ATTEND Internal Medicine
DX: K29.60 Other gastritis without bleeding; K22.2 Esophageal obstruction; E78.2 Mixed hyperlipidemia; E11.65 Type 2 diabetes mellitus with hyperglycemia; I10 Essential (primary) hypertension; K20.8 Other esophagitis; R13.11 Dysphagia, oral phase; R11.2 Nausea with vomiting, unspecified; K31.1 Adult hypertrophic pyloric stenosis; D72.828 Other elevated white blood cell count; K21.9 Gastro-esophageal reflux disease without esophagitis; K44.9 Diaphragmatic hernia without obstruction or gangrene; Z86.73 Personal history of transient ischemic attack (TIA), and cerebral infarction without residual deficits
CPT/HCPCS: 36415; 71010; 71045; 74177; 80053; 81001; 81003; 82150; 83690; 83735; 84132; 85025; 87040; 87086; A4216; A4222; C9113; G0378; J0744; J2405; J2704; J7030; P9047; S0028

== ENCOUNTER 2023-06-13 17:57 | Inpatient (IN) ==
--- NOTE | 2023-06-13 18:42 | DR.GENAD ---
HPI Time Seen Time Seen by Provider: 06/13/23 18:39 Complaint/Symptoms Chief Complaint Doctors Comments: Sent from NH with elevated creatinine/BUN COVID-19 Coronavirus risk:travel/contact w/high risk person: No Has patient experienced Coronavirus symptoms: No Nurses notes reviewed Nurses Notes Review: Yes Source History Provided: [facility] Mode of Arrival Mode of Arrival: Stretcher Duration Duration: Unknown Severity Severity: Moderate PMH PMH Past Medical History: Anemia, Anxiety, Arthritis, CHF, Coronary Artery Disease, CVA, Depression, Dyslipidemia, GERD, Gout, Hypertension, Hypothyroidism, Schi zophrenia and Seizures Past Surgical History: Yes Surgical History: Unknown Family History Family Medical History: Hypertension Social History Do you use any recreational Drugs:: No Travel Risk Coronavirus risk:travel/contact w/high risk person: No Has patient experienced Coronavirus symptoms: No ROS Review of Systems Constitutional: No Symptoms Reported and See HPI PE Vital Signs Vitals: Vital Signs Temperature 98 F Pulse Rate 92 Respiratory Rate 20 Blood Pressure 129/79 O2 Sat by Pulse Oximetry 98 General Limitations: Other (Hx dementia) General Appearance: Alert and In No Apparent Distress Head Head Exam: Normal Inspection, Atraumatic and Normocephalic Eyes Eye exam: Normal Appearance, PERRL and EOMI ENT ENT Exam: Normal Exam Neck Neck Exam: Normal Inspection Chest Chest Inspection: Normal Inspection Respiratory Respiratory Exam: Normal Lung Sounds Bilat Cardiovascular Cardiovascular Exam: Regular Rate Abdominal Exam Abdominal Exam: Normal Inspection Extremities Extremities Exam: Other (Trace LE edema) Back Back Exam: Normal Inspection Neurologic Neurological Exam: Alert, CN II-XII Intact, Reflexes Normal and Other (Hx dementia) Psychiatric Psychiatric Exam: Flat Affect Skin Skin Exam: Warm, Dry and Intact COURSE Treatment Treatment: Labs, IVFs, admission Reevaluation 1st: Improved ROR Labs Reviewed Laboratory Results Reviewed?: Yes 06/13/23 18:45 06/13/23 18:45 Laboratory: WBC 12.7 X10^3/uL (3.6-10.0) H 06/13/23 18:45 RBC 3.18 X10^6/uL (3.5-5.4) L 06/13/23 18:45 Hgb 9.8 g/dL (12.0-16.0) L 06/13/23 18:45 Hct 31.9 % (36.0-47.0) L 06/13/23 18:45 MCV 100.4 fL (80.0-100.0) H 06/13/23 18:45 MCH 30.9 pg (27.0-34.0) 06/13/23 18:45 MCHC 30.8 g/dL (33.0-35.0) L 06/13/23 18:45 RDW 15.5 % (11.6-16.5) 06/13/23 18:45 Plt Count 204 X10^3/uL (150.0-450.0) 06/13/23 18:45 MPV 10.2 fL (7.4-11.0) 06/13/23 18:45 Neut % (Auto) 62.3 % (42.0-75.0) 06/13/23 18:45 Lymph % (Auto) 29.8 % (21.0-51.0) 06/13/23 18:45 [place] % (Auto) 3.9 % (0.0-13.0) 06/13/23 18:45 Eos % (Auto) 3.6 % (0.9-2.9) H 06/13/23 18:45 Baso % (Auto) 0.4 % (0.2-1.0) 06/13/23 18:45 Neut # (Auto) 7.9 x10^3/uL (2.2-4.8) H 06/13/23 18:45 Lymph # (Auto) 3.8 X10^3/uL (1.3-2.9) H 06/13/23 18:45 [place] # (Auto) 0.5 x10^3/uL (0.3-0.8) 06/13/23 18:45 Eos # (Auto) 0.5 x10^3/uL (0.0-0.2) H 06/13/23 18:45 Baso # (Auto) 0.0 X10^3/uL (0.0-0.1) 06/13/23 18:45 Absolute Nucleated RBC 0.0 /100WBC 06/13/23 18:45 Sodium 139 mmol/L (136-145) 06/13/23 18:45 Corrected Sodium TNP 06/13/23 18:45 Potassium 5.9 mmol/L (3.5-5.1) H 06/13/23 18:45 Chloride 107 mmol/L (98-107) 06/13/23 18:45 Carbon Dioxide 22.6 mmol/L (21-32) 06/13/23 18:45 BUN 49 mg/dL (7-18) H 06/13/23 18:45 Creatinine 4.52 mg/dL (0.55-1.02) H 06/13/23 18:45 Est GFR (MDRD) Af Amer 13 (>60) L 06/13/23 18:45 Est GFR (MDRD) Non-Af 10 (>60) L 06/13/23 18:45 Glucose 101 mg/dL (65-99) H 06/13/23 18:45 Calcium 8.8 mg/dL (8.5-10.1) 06/13/23 18:45 Corrected Calcium 10.2 mg/dL (8.5-10.1) H 06/13/23 18:45 Total Bilirubin 0.20 mg/dL (0.2-1.0) 06/13/23 18:45 AST 15 Units/L (15-37) 06/13/23 18:45 ALT 13 Units/L (12-78) 06/13/23 18:45 Alkaline Phosphatase 186 Units/L (46-116) H 06/13/23 18:45 Total Protein 7.5 g/dL (6.4-8.2) 06/13/23 18:45 Albumin 2.3 g/dL (3.4-5.0) L 06/13/23 18:45 Globulin 5.2 g/dL (2.5-4.5) H 06/13/23 18:45 Albumin/Globulin Ratio 0.4 Ratio (1.1-2.1) L 06/13/23 18:45 Specimen Type Catherized urine 06/13/23 18:17 Urine Color Yellow (YELLOW) 06/13/23 18:17 Urine Appearance Clear (CLEAR) 06/13/23 18:17 Urine pH 5.0 (5.0 - 8.0) 06/13/23 18:17 Ur Specific [place] 1.020 (1.000-1.030) 06/13/23 18:17 Urine Protein 1+ (NEGATIVE) 06/13/23 18:17 Urine Glucose (UA) Negative (NEGATIVE) 06/13/23 18:17 Urine Ketones Negative (NEGATIVE) 06/13/23 18:17 Urine Blood Negative (NEGATIVE) 06/13/23 18:17 Urine Nitrite Negative (NEGATIVE) 06/13/23 18:17 Urine Bilirubin Negative (NEGATIVE) 06/13/23 18:17 Urine Urobilinogen Normal (NORMAL) 06/13/23 18:17 Ur Leukocyte Esterase Negative (NEGATIVE) 06/13/23 18:17 Urine RBC None seen /HPF (0-3) 06/13/23 18:17 Urine WBC None seen /HPF (0-5) 06/13/23 18:17 Ur Squamous Epith Cells Negative /HPF (NEGATIVE) 06/13/23 18:17 Urine Bacteria Negative /HPF (NEGATIVE) 06/13/23 18:17 Urine Yeast Many /HPF (NEGATIVE) 06/13/23 18:17 Ur Culture Indicated? No/not indicated 06/13/23 18:17 Opioid Opioid Risk Tool Age (Ok box if 16-45): No History of Preadolescent Sexual Abuse: No Total: 0 Total Score Risk Category: Low Risk Copyright: Soren MINOR predicting aberrant behaviors Discharge Plan Diagnosis Discharge Problem: Acute renal failure Discharge Plan Patient Disposition: ADMITTED INPATIENT Condition: Stable Prescriptions: No Action coenzyme Q10 10 mg Capsule 10 mg PO DAILY phenytoin sodium extended [Dilantin Extended] 100 mg Capsule 100 mg PO HS allopurinol 100 mg Tablet 100 mg PO BID docusate sodium [Colace] 100 mg Capsule 100 mg PO BID folic acid 1 mg Tablet 1 tab PO DAILY potassium chloride 10 mEq Capsule, Extended Release 10 meq PO BID tramadol 50 mg Tablet 50 mg PO BID PRN (Reason: Pain) simvastatin 40 mg Tablet 40 mg PO QHS levetiracetam 500 mg tablet 500 mg PO BID pantoprazole 40 mg tablet,delayed release (DR/EC) 40 mg PO DAILY Ferrocite Plus 106 mg iron- 1 mg Tablet 1 tab PO ONCE metformin 500 mg tablet 500 mg PO BID ibuprofen 800 mg Tablet 800 mg PO Q8H PRN artificial tears solution Drops 1 drp OPHTHALMIC (EYE) BID citalopram 20 mg tablet 20 mg PO QDAY Novolin R Regular U100 Insulin 100 unit/mL Solution See Rx Instructions .ROUTE .COMPLEX Rx Instructions: sliding scale as ordered gabapentin 300 mg Capsule 300 mg PO HS furosemide [Lasix] 40 mg Tablet 40 mg PO BID melatonin 5 mg Tablet 5 mg PO HS meloxicam 15 mg Tablet 15 mg PO DAILY pramipexole [Mirapex] 0.25 mg Tablet 0.25 mg PO BID levothyroxine [Synthroid] 75 mcg Tablet 100 mcg PO DAILY Xarelto 20 mg Tablet 20 mg PO DAILY cholecalciferol (vitamin D3) 250 mcg (10,000 unit) Tablet 250 mcg PO DAILY famotidine [Pepcid] 40 MG tablet 40 mg PO BID Qty: 60 3RF Rx Instructions: TAKE ONE TABLET TWICE A DAY Health Concerns: Post Hospitalization: new medications and changes needed to prevent readmission or further decline. Pt educated and given instructions on all concerns. Plan of Treatment: Continue with present treatment and follow up plan. Pt is to keep follow up appointment as instructed and take medications as ordered. Orders to Discharge Patient Discharge Orders: Discharge (Routine); Ordered 06/13/23 Ordered By: Brandt Taylor Follow ups/Referrals Follow ups/Referrals: Timothy Rosario [Primary Care Provider] - 3 days
[2023-06-13 18:54] LABS: BASOPHILS % (AUTO) 0.4 % (0.2-1.0); EOSINOPHILS # (AUTO) 0.5 x10^3/uL (0.0-0.2); EOSINOPHILS % (AUTO) 3.6 % (0.9-2.9); HEMATOCRIT 31.9 % (36.0-47.0); HEMOGLOBIN 9.8 g/dL (12.0-16.0); LYMPHOCYTES # (AUTO) 3.8 X10^3/uL (1.3-2.9); LYMPHOCYTES % (AUTO) 29.8 % (21.0-51.0); MEAN CORPUSCULAR HEMOGLOBIN 30.9 pg (27.0-34.0); MEAN CORPUSCULAR HGB CONC 30.8 g/dL (33.0-35.0); MEAN CORPUSCULAR VOLUME 100.4 fL (80.0-100.0); MEAN PLATELET VOLUME 10.2 fL (7.4-11.0); MONOCYTES # (AUTO) 0.5 x10^3/uL (0.3-0.8); MONOCYTES % (AUTO) 3.9 % (0.0-13.0); NEUTROPHILS # (AUTO) 7.9 x10^3/uL (2.2-4.8); NEUTROPHILS % (AUTO) 62.3 % (42.0-75.0); PLATELET COUNT 204 X10^3/uL (150.0-450.0); RED BLOOD COUNT 3.18 X10^6/uL (3.5-5.4); RED CELL DISTRIBUTION WIDTH 15.5 % (11.6-16.5); WHITE BLOOD COUNT 12.7 X10^3/uL (3.6-10.0)
[2023-06-13 18:59] LABS: BILIRUBIN,URINE NEGATIVE (NEGATIVE); BLOOD/HEMOGLOBIN,URINE NEGATIVE (NEGATIVE); GLUCOSE, URINE NEGATIVE (NEGATIVE); KETONES,URINE NEGATIVE (NEGATIVE); LEUKOCYTE ESTERASE ,URINE NEGATIVE (NEGATIVE); NITRITES,URINE NEGATIVE (NEGATIVE); PROTEIN,URINE 1+ (NEGATIVE); UROBILINOGEN,URINE NORMAL (NORMAL)
[2023-06-13 19:02] LABS: APPEARANCE,URINE CLEAR (CLEAR); COLOR,URINE YELLOW (YELLOW)
[2023-06-13 19:07] LABS: BACTERIA,URINE NEGATIVE /HPF (NEGATIVE); RBC,URINE NONE SEEN /HPF (0-3); SQUAMOUS EPITHELIAL CELL,UR NEGATIVE /HPF (NEGATIVE); YEAST,URINE MANY /HPF (NEGATIVE)
[2023-06-13 19:09] LABS: ALANINE AMINOTRANSFERASE 13 Units/L (12-78); ALKALINE PHOSPHATASE 186 Units/L (46-116); ASPARTATE AMINO TRANSFERASE 15 Units/L (15-37); BLOOD UREA NITROGEN 49 mg/dL (7-18); CALCIUM 8.8 mg/dL (8.5-10.1); CARBON DIOXIDE 22.6 mmol/L (21-32); CHLORIDE 107 mmol/L (98-107); CREATININE 4.52 mg/dL (0.55-1.02); GLUCOSE 101 mg/dL (65-99); SODIUM 139 mmol/L (136-145); TOTAL PROTEIN 7.5 g/dL (6.4-8.2); eGFR NON BLACK RACES 10 (>60)
[2023-06-13 19:10] LABS: ALBUMIN 2.3 g/dL (3.4-5.0); COR CA(FOR HYPOALB) 10.2 mg/dL (8.5-10.1)
[2023-06-13 19:11] LABS: POTASSIUM 5.9 mmol/L (3.5-5.1)
[2023-06-13] MEDS ORDERED: NS 1,000 ML IV 1,000 ML ONE (19:16)
[2023-06-13] MEDS: NS 1,000 ML IV 1,000 ML IV SCH (20:00)
[2023-06-13 21:36] VITALS: BMI 36.9
[2023-06-14] MEDS ORDERED: NS 1,000 ML IV 1,000 ML ONE (00:25)
[2023-06-14] MEDS: NS 1,000 ML IV 1,000 ML IV SCH (03:00)
--- NOTE | 2023-06-14 06:22 | RAD ---
EXAM:CHEST, 1 VIEWHISTORY:ACUTE RENAL FAILURE ; CAD, HTN, CVA, GERD, GOUT, CHFCOMPARISON:11/05/2022.TECHNIQUE:AP view of the chestFINDINGS:The cardiac and mediastinal contours are normal in size. No consolidation or segmental lung collapse. Blunted left costophrenic sulcus. No pneumothorax.IMPRESSION:Blunted left costophrenic sulcus can be seen with small pleural effusion and pleural scarring.THIS IS AN ELECTRONICALLY VERIFIED FINAL [id number]/2023 6:19 AM - Electronically signed by Elvis Aaron MD
[2023-06-14 06:33] LABS: BASOPHILS # (AUTO) 0.1 X10^3/uL (0.0-0.1); BASOPHILS % (AUTO) 0.8 % (0.2-1.0); EOSINOPHILS # (AUTO) 0.4 x10^3/uL (0.0-0.2); EOSINOPHILS % (AUTO) 3.5 % (0.9-2.9); HEMATOCRIT 31.5 % (36.0-47.0); HEMOGLOBIN 9.7 g/dL (12.0-16.0); LYMPHOCYTES # (AUTO) 3.6 X10^3/uL (1.3-2.9); MEAN CORPUSCULAR HGB CONC 30.8 g/dL (33.0-35.0); MEAN CORPUSCULAR VOLUME 100.8 fL (80.0-100.0); MEAN PLATELET VOLUME 10.4 fL (7.4-11.0); MONOCYTES # (AUTO) 0.5 x10^3/uL (0.3-0.8); MONOCYTES % (AUTO) 4.4 % (0.0-13.0); NEUTROPHILS # (AUTO) 7.3 x10^3/uL (2.2-4.8); NEUTROPHILS % (AUTO) 61.3 % (42.0-75.0); PLATELET COUNT 202 X10^3/uL (150.0-450.0); RED BLOOD COUNT 3.13 X10^6/uL (3.5-5.4); RED CELL DISTRIBUTION WIDTH 15.3 % (11.6-16.5)
[2023-06-14 06:43] LABS: ALANINE AMINOTRANSFERASE 10 Units/L (12-78); ALBUMIN 2.3 g/dL (3.4-5.0); ALKALINE PHOSPHATASE 183 Units/L (46-116); ASPARTATE AMINO TRANSFERASE 15 Units/L (15-37); BLOOD UREA NITROGEN 49 mg/dL (7-18); CALCIUM 8.7 mg/dL (8.5-10.1); CARBON DIOXIDE 21.5 mmol/L (21-32); CHLORIDE 108 mmol/L (98-107); COR CA(FOR HYPOALB) 10.1 mg/dL (8.5-10.1); CREATININE 4.13 mg/dL (0.55-1.02); GLUCOSE 91 mg/dL (65-99); SODIUM 140 mmol/L (136-145); TOTAL PROTEIN 7.3 g/dL (6.4-8.2); eGFR NON BLACK RACES 11 (>60)
[2023-06-14 06:46] LABS: POTASSIUM 6.2 mmol/L (3.5-5.1)
[2023-06-14] MEDS ORDERED: NovoLIN R (or HumuLIN R) SUBCUT PRN (06:54)
[2023-06-14] MEDS ORDERED: FOLIC ACID TAB 1 MG ONE (07:43)
[2023-06-14] MEDS ORDERED: PROTONIX TAB 40 MG PO ONE (07:43)
[2023-06-14] MEDS ORDERED: COLACE CAP 100 MG PO ONE (07:43)
[2023-06-14] MEDS ORDERED: CELEXA ONE (07:43)
[2023-06-14] MEDS ORDERED: HEMOCYTE-PLUS ONE (07:43)
[2023-06-14] MEDS ORDERED: DILANTIN CAP 100 MG EXT REL PO ONE (07:43)
[2023-06-14] MEDS ORDERED: KEPPRA TAB 500 MG ONE (07:44)
[2023-06-14] MEDS ORDERED: MIRAPEX TAB 0.25 MG ONE (07:44)
[2023-06-14] MEDS ORDERED: SYNTHROID 112 mcg TAB ONE (07:44)
[2023-06-14] MEDS ORDERED: ZYLOPRIM ONE (07:44)
[2023-06-14] MEDS ORDERED: VITAMIN D3 125 mcg (5,000 UNITS) ONE (07:44)
[2023-06-14] MEDS ORDERED: KAYEXALATE SUSP ONE (08:03)
[2023-06-14] MEDS: SYNTHROID 112 mcg TAB PO SCH (08:22)
[2023-06-14] MEDS: CELEXA PO SCH (08:22)
[2023-06-14] MEDS: ZYLOPRIM PO SCH ×2 (08:23→20:13)
[2023-06-14] MEDS: PROTONIX TAB 40 MG PO SCH (08:23)
[2023-06-14] MEDS: VITAMIN D3 125 mcg (5,000 UNITS) PO SCH (08:23)
[2023-06-14] MEDS: KEPPRA TAB 500 MG PO SCH ×2 (08:24→20:14)
[2023-06-14] MEDS: MIRAPEX TAB 0.25 MG PO SCH ×2 (08:24→20:14)
[2023-06-14] MEDS: KAYEXALATE SUSP PO SCH ×2 (08:24→20:20)
[2023-06-14] MEDS: FOLIC ACID TAB 1 MG PO SCH (08:25)
[2023-06-14] MEDS: COLACE CAP 100 MG PO SCH ×2 (08:25→20:13)
[2023-06-14] MEDS: HEMOCYTE-PLUS PO SCH (08:25)
[2023-06-14] MEDS: DILANTIN CAP 100 MG EXT REL PO SCH ×2 (08:25→20:14)
--- NOTE | 2023-06-14 08:57 | EKG ---
Test Reason : hyperkalemia Blood Pressure : */* mmHG Vent. Rate : 93 BPM Atrial Rate : 93 BPM P-R Int : 154 ms QRS Dur : 72 ms QT Int : 340 ms P-R-T Axes : 53 -44 69 degrees QTc Int : 422 ms Normal sinus rhythm Left axis deviation Low voltage QRS Nonspecific T wave abnormality Poor R-wave progression Abnormal ECG When compared with ECG of 04-NOV-2022 23:56, No significant change was found Confirmed by Rangel Sanchez MD ([id number]) on 06/14/2023 9:31:32 AM Referred By: Confirmed By: Rangel Sanchez MD
[2023-06-14] MEDS ORDERED: DILANTIN CAP 100 MG EXT REL PO SCH (09:00)
[2023-06-14] MEDS ORDERED: NS 1/2 1,000 ML IV 1,000 ML IV ONE ×2 (09:06→23:21)
[2023-06-14] MEDS: NS 1/2 1,000 ML IV 1,000 ML IV SCH (09:07)
[2023-06-14] MEDS ORDERED: LASIX ONE (09:10)
[2023-06-14] MEDS: LASIX IVP SCH (09:14)
--- NOTE | 2023-06-14 11:08 | RAD ---
EXAM:CHEST x-ray, 1 VIEWHISTORY:ACUTE RENAL FAILURE, HX OF CHF -COMPARISON:X-ray 06/14/2023FINDINGS:Calcification is seen of the aortic arch. There is likely elevation of the right hemidiaphragm. Probable CHF and mild pulmonary edema has developed. There may be a small left pleural effusion. No pneumothorax is seen. Lung volumes are low.IMPRESSION:Probable CHF and pulmonary edema is a changed appearance since prior study.THIS IS AN ELECTRONICALLY VERIFIED FINAL [id number]/2023 11:05 AM - Electronically signed by Christiano Lovelace MD
--- NOTE | 2023-06-14 15:24 | DR.H&P ---
H&P History & Physical for Day of: H&P Date: 06/13/23 Chief Complaint Chief Complaint: AMS, ACUTE HYPERKALEMIA, ACUTE ON CHRONIC RENAL FAILURE Allergies Allergies Allergy/AdvReac Type Severity Reaction Status Date / Time No Known Drug Allergies Allergy Verified 01/05/21 16:23 History of Present Illness History of Present Illness: PT IS 67BF, RESIDENT OF [facility], ER ADMISSION AFTER PT WAS SENT FOR EVALUATION DUE TO INCREASED WEAKNESS, AMS AND ABNORMAL OUTPT LABS. Past Medical History Past Medical History: Anemia, Anxiety, Arthritis, CHF, Coronary Artery Disease, CVA, Depression, Dyslipidemia, GERD, Gout, Hypertension, Hypothyroidism, Schizophrenia and Seizures Additional Medical History: PLOYNEUROPATHY, RESTLESS LEGS Past Surgical History Surgical History: Ortho Surgery Family History Family Medical History: Diabetes Mellitus and [place] Social History Does patient currently use any type of tobacco product: No Have you used tobacco products in the last 12 months: No Type of Tobacco Use: None Does any household member use tobacco: No Alcohol Use: None Drug Use: None Medications Home Medications: Home Medications Medication Instructions Recorded Confirmed Type allopurinol 100 mg tablet 100 mg PO BID 04/17/18 06/13/23 History coenzyme Q10 10 mg capsule 10 mg PO DAILY 04/17/18 06/13/23 History docusate sodium 100 mg capsule 100 mg PO BID 04/17/18 06/13/23 History (Colace) folic acid 1 mg tablet 1 tab PO DAILY 04/17/18 06/13/23 History phenytoin sodium extended 100 mg 100 mg PO BID 04/17/18 06/14/23 History capsule (Dilantin Extended) potassium chloride 10 mEq 10 meq PO BID 04/17/18 06/13/23 History capsule,extended release simvastatin 40 mg tablet 40 mg PO QHS 04/17/18 06/13/23 History tramadol 50 mg tablet 50 mg PO BID PRN Pain 04/17/18 06/13/23 History gabapentin 300 mg capsule 300 mg PO HS 05/09/18 06/13/23 History cholecalciferol (vitamin D3) 250 250 mcg PO DAILY 01/19/20 06/13/23 History mcg (10,000 unit) tablet furosemide 40 mg tablet (Lasix) 40 mg PO BID 01/19/20 06/13/23 History melatonin 5 mg tablet 5 mg PO HS 01/19/20 06/13/23 History meloxicam 15 mg tablet 15 mg PO DAILY 01/19/20 06/13/23 History pramipexole 0.25 mg tablet 0.25 mg PO BID 01/19/20 06/13/23 History (Mirapex) rivaroxaban 20 mg tablet (Xarelto) 20 mg PO DAILY 01/19/20 06/13/23 History B [id number] 106 mg 1 tab PO ONCE 06/07/21 06/13/23 History iron-1 mg tablet (Ferrocite Plus) levetiracetam 500 mg tablet 500 mg PO BID 06/07/21 06/13/23 History pantoprazole 40 mg tablet,delayed 40 mg PO DAILY 06/07/21 06/13/23 History release artificial tears solution eye drops 1 drp ophthalmic (eye) BID 06/13/23 06/13/23 History citalopram 20 mg tablet 20 mg PO QDAY 06/13/23 06/13/23 History ibuprofen 800 mg tablet 800 mg PO Q8H PRN 06/13/23 06/13/23 History insulin regular human 100 unit/mL See Rx Instructions .Route .COMPLEX 06/13/23 06/13/23 History injection solution (Novolin R Regular U-100 Insulin) metformin 500 mg tablet 500 mg PO BID 06/13/23 06/13/23 History levothyroxine 112 mcg tablet 112 mcg PO QDAY 06/14/23 06/14/23 History Labs 06/14/23 06:23 06/14/23 06:23 Labs: Laboratory WBC 12.0 X10^3/uL (3.6-10.0) H 06/14/23 06:23 RBC 3.13 X10^6/uL (3.5-5.4) L 06/14/23 06:23 Hgb 9.7 g/dL (12.0-16.0) L 06/14/23 06:23 Hct 31.5 % (36.0-47.0) L 06/14/23 06:23 MCV 100.8 fL (80.0-100.0) H 06/14/23 06:23 MCH 31.0 pg (27.0-34.0) 06/14/23 06: MCHC 30.8 g/dL (33.0-35.0) L 06/14/23 06: RDW 15.3 % (11.6-16.5) 06/14/23 06: Plt Count 202 X10^3/uL (150.0-450.0) 06/14/23 06: MPV 10.4 fL (7.4-11.0) 06/14/23 06:23 Neut % (Auto) 61.3 % (42.0-75.0) 06/14/23 06: Lymph % (Auto) 30.0 % (21.0-51.0) 06/14/23 06: [place] % (Auto) 4.4 % (0.0-13.0) 06/14/23 06: Eos % (Auto) 3.5 % (0.9-2.9) H 06/14/23 06: Baso % (Auto) 0.8 % (0.2-1.0) 06/14/23: Neut # (Auto) 7.3 x10^3/uL (2.2-4.8) H 06/14/23 06:23 Lymph # (Auto) 3.6 X10^3/uL (1.3-2.9) H 06/14/23 06:23 [place] # (Auto) 0.5 x10^3/uL (0.3-0.8) 06/14/23 06:23 Eos # (Auto) 0.4 x10^3/uL (0.0-0.2) H 06/14/23 06:23 Baso # (Auto) 0.1 X10^3/uL (0.0-0.1) 06/14/23 06:23 Absolute Nucleated RBC 0.1 /100WBC 06/14/23 06:23 Sodium 140 mmol/L (136-145) 06/14/23 06:23 Corrected Sodium TNP 06/14/23 06:23 Potassium 6.2 mmol/L (3.5-5.1) H* 06/14/23 06:23 Chloride 108 mmol/L (98-107) H 06/14/23 06:23 Carbon Dioxide 21.5 mmol/L (21-32) 06/14/23 06:23 BUN 49 mg/dL (7-18) H 06/14/23 06:23 Creatinine 4.13 mg/dL (0.55-1.02) H 06/14/23 06:23 Est GFR (MDRD) Af Amer 14 (>60) L 06/14/23 06:23 Est GFR (MDRD) Non-Af 11 (>60) L 06/14/23 06:23 Glucose 91 mg/dL (65-99) 06/14/23 06:23 POC Glucose (mg/dL) 106 mg/dL (65-99) H 06/14/23 11:50 Calcium 8.7 mg/dL (8.5-10.1) 06/14/23 06:23 Corrected Calcium 10.1 mg/dL (8.5-10.1) 06/14/23 06: Total Bilirubin 0.20 mg/dL (0.2-1.0) 06/14/23 06:23 AST 15 Units/L (15-37) 06/14/23 06:23 ALT 10 Units/L (12-78) L 06/14/23 06:23 Alkaline Phosphatase 183 Units/L (46-116) H 06/14/23 06:23 Creatine Kinase 39 Units/L (26-192) 06/14/23 06:23 Troponin I High Sens 4.4 ng/L (4.0-60.0) 06/14/23 06:23 B-Natriuretic Peptide 102 pg/mL (0-79) H 06/14/23 06:23 Total Protein 7.3 g/dL (6.4-8.2) 06/14/23 06:23 Albumin 2.3 g/dL (3.4-5.0) L 06/14/23 06:23 Globulin 5.0 g/dL (2.5-4.5) H 06/14/23 06:23 Albumin/Globulin Ratio 0.5 Ratio (1.1-2.1) L 06/14/23 06:23 Specimen Type Catherized urine 06/13/23 18:17 Urine Color Yellow (YELLOW) 06/13/23 18:17 Urine Appearance Clear (CLEAR) 06/13/23 18:17 Urine pH 5.0 (5.0 - 8.0) 06/13/23 18:17 Ur Specific [place] 1.020 (1.000-1.030) 06/13/23 18:17 Urine Protein 1+ (NEGATIVE) 06/13/23 18:17 Urine Glucose (UA) Negative (NEGATIVE) 06/13/23 18:17 Urine Ketones Negative (NEGATIVE) 06/13/23 18:17 Urine Blood Negative (NEGATIVE) 06/13/23 18:17 Urine Nitrite Negative (NEGATIVE) 06/13/23 18:17 Urine Bilirubin Negative (NEGATIVE) 06/13/23 18:17 Urine Urobilinogen Normal (NORMAL) 06/13/23 18:17 Ur Leukocyte Esterase Negative (NEGATIVE) 06/13/23 18:17 Urine RBC None seen /HPF (0-3) 06/13/23 18:17 Urine WBC None seen /HPF (0-5) 06/13/23 18:17 Ur Squamous Epith Cells Negative /HPF (NEGATIVE) 06/13/23 18:17 Urine Bacteria Negative /HPF (NEGATIVE) 06/13/23 18:17 Urine Yeast Many /HPF (NEGATIVE) 06/13/23 18:17 Ur Culture Indicated? No/not indicated 06/13/23 18:17 Review of Systems Constitutional: Weakness Eyes: No Symptoms Reported ENT: No Symptoms Reported Respiratory: Shortness of Breath Cardiovascular: Palpitations Gastrointestinal: Nausea Genitourinary: Incontinence Musculoskeletal: No Symptoms Reported Skin: No Symptoms Reported Neurological: Weakness Physical Exam Vital Signs: Vital Signs Temperature 98.1 F Pulse Rate [Right Brachial] 96 Respiratory Rate 18 Blood Pressure [Right Arm] 132/63 O2 Sat by Pulse Oximetry 96 Oriented: Person Eyes: Normal Ear: Normal Throat: Dry Respiratory: Diminished Throughout Cardiovascular: Tachycardia and Edema : Normal Palpation: Normal Tenderness: Diffuse and Mild Skin: Decreased [place] Musculoskeletal: Motor Deficit Mood Description: Flat Affect: Flat Speech Pattern: Delayed Assessment/Plan (1) Acute renal failure: Narrative Support Text: ADMIT, GENTLE IV HYDRATION STRICT I&OS, NI CATH CXR ON ADMISSION, EKG AND CE BP CONTROL, KAYEXALATE THERAPY Status: Acute (2) CHF (congestive heart failure): Qualifiers: Heart failure chronicity: unspecified Heart failure type: unspecified Qualified Code(s): I50.9 - Heart failure, unspecified Status: Chronic (3) Hypertension: Status: Chronic (4) Degenerative disc disease, lumbar: Status: Acute (5) Hyperkalemia: Status: Acute
--- NOTE | 2023-06-14 15:28 | PCM.PROG ---
Progress Note Progress Note for Day of Date of Exam: 06/14/23 Subjective Subjective: PT IS 67 BF, ER ADMISSION WITH ACUTE ON CHRONIC RENAL FAILURE AND HYPERKALEMIA. PT HAS PMH OF CHF AND HAS BEEN ON DIURETIC THERAPY. [facility] REPORTS PT HAS HAD INCREASED WEAKNESS AND AMS. PT WAS STARTED ON IV HYDRATION ON ADMISSION FROM THE ER. IV FLUIDS CHANGES TO 1/2NS AT 75CC/HR WITH NI CATH FOR STRICT I&OS. PT GIVEN KAYEXALATE FOR HYPERKALEMIA. PT WILL NEED CONTINUOUS CARDIAC MONITORING AND CE. BP CONTROL CONTINUED. VERIFY HOME MEDICATION AND HOLD NSAIDS. Past Medical Family Social History Allergies: Allergies No Known Drug Allergies Allergy (Verified 01/05/21 16:23) Vital Signs and I&O's Vital Signs: Vital Signs Temperature 98.1 F Pulse Rate [Right Brachial] 96 Respiratory Rate 18 Blood Pressure [Right Arm] 132/63 O2 Sat by Pulse Oximetry 96 Intake and Output: Intake & Output 06/12/23 06/13/23 06/14/23 06/15/23 11:59 11:59 11:59 11:59 Intake Total 1992 Output Total 550 / 550 Balance 1443 / 1443 Physical Exam Oriented: Person Eyes: Normal Ear: Normal Throat: Dry Cardiovascular: Tachycardia and Edema : Normal Tenderness: Diffuse and Mild Skin: Decreased [place] Musculoskeletal: Motor Deficit Mood Description: Flat Affect: Flat Speech Pattern: Delayed Laboratory and Diagnostics 06/14/23 06:23 06/14/23 06:23 Labs: Laboratory WBC 12.0 X10^3/uL (3.6-10.0) H 06/14/23 06:23 RBC 3.13 X10^6/uL (3.5-5.4) L 06/14/23 06:23 Hgb 9.7 g/dL (12.0-16.0) L 06/14/23 06:23 Hct 31.5 % (36.0-47.0) L 06/14/23 06:23 MCV 100.8 fL (80.0-100.0) H 06/14/23 06:23 MCH 31.0 pg (27.0-34.0) 06/14/23 06: MCHC 30.8 g/dL (33.0-35.0) L 06/14/23 06:23 RDW 15.3 % (11.6-16.5) 06/14/23 06:23 Plt Count 202 X10^3/uL (150.0-450.0) 06/14/23 06:23 MPV 10.4 fL (7.4-11.0) 06/14/23 06:23 Neut % (Auto) 61.3 % (42.0-75.0) 06/14/23 06: Lymph % (Auto) 30.0 % (21.0-51.0) 06/14/23 06:23 [place] % (Auto) 4.4 % (0.0-13.0) 06/14/23 06: Eos % (Auto) 3.5 % (0.9-2.9) H 06/14/23 06:23 Baso % (Auto) 0.8 % (0.2-1.0) 06/14/23 06:23 Neut # (Auto) 7.3 x10^3/uL (2.2-4.8) H 06/14/23 06:23 Lymph # (Auto) 3.6 X10^3/uL (1.3-2.9) H 06/14/23 06:23 [place] # (Auto) 0.5 x10^3/uL (0.3-0.8) 06/14/23 06:23 Eos # (Auto) 0.4 x10^3/uL (0.0-0.2) H 06/14/23 06:23 Baso # (Auto) 0.1 X10^3/uL (0.0-0.1) 06/14/23 06:23 Absolute Nucleated RBC 0.1 /100WBC 06/14/23 06:23 Sodium 140 mmol/L (136-145) 06/14/23 06:23 Corrected Sodium TNP 06/14/23 06:23 Potassium 6.2 mmol/L (3.5-5.1) H* 06/14/23 06:23 Chloride 108 mmol/L (98-107) H 06/14/23 06:23 Carbon Dioxide 21.5 mmol/L (21-32) 06/14/23 06:23 BUN 49 mg/dL (7-18) H 06/14/23 06:23 Creatinine 4.13 mg/dL (0.55-1.02) H 06/14/23 06:23 Est GFR (MDRD) Af Amer 14 (>60) L 06/14/23 06:23 Est GFR (MDRD) Non-Af 11 (>60) L 06/14/23 06:23 Glucose 91 mg/dL (65-99) 06/14/23 06:23 POC Glucose (mg/dL) 106 mg/dL (65-99) H 06/14/23 11:50 Calcium 8.7 mg/dL (8.5-10.1) 06/14/23 06:23 Corrected Calcium 10.1 mg/dL (8.5-10.1) 06/14/23 06:23 Total Bilirubin 0.20 mg/dL (0.2-1.0) 06/14/23 06:23 AST 15 Units/L (15-37) 06/14/23 06:23 ALT 10 Units/L (12-78) L 06/14/23 06:23 Alkaline Phosphatase 183 Units/L (46-116) H 06/14/23 06:23 Creatine Kinase 39 Units/L (26-192) 06/14/23 06:23 Troponin I High Sens 4.4 ng/L (4.0-60.0) 06/14/23 06:23 B-Natriuretic Peptide 102 pg/mL (0-79) H 06/14/23 06:23 Total Protein 7.3 g/dL (6.4-8.2) 06/14/23 06:23 Albumin 2.3 g/dL (3.4-5.0) L 06/14/23 06:23 Globulin 5.0 g/dL (2.5-4.5) H 06/14/23 06:23 Albumin/Globulin Ratio 0.5 Ratio (1.1-2.1) L 06/14/23 06:23 Specimen Type Catherized urine 06/13/23 18:17 Urine Color Yellow (YELLOW) 06/13/23 18:17 Urine Appearance Clear (CLEAR) 06/13/23 18:17 Urine pH 5.0 (5.0 - 8.0) 06/13/23 18:17 Ur Specific [place] 1.020 (1.000-1.030) 06/13/23 18:17 Urine Protein 1+ (NEGATIVE) 06/13/23 18:17 Urine Glucose (UA) Negative (NEGATIVE) 06/13/23 18:17 Urine Ketones Negative (NEGATIVE) 06/13/23 18:17 Urine Blood Negative (NEGATIVE) 06/13/23 18:17 Urine Nitrite Negative (NEGATIVE) 06/13/23 18:17 Urine Bilirubin Negative (NEGATIVE) 06/13/23 18:17 Urine Urobilinogen Normal (NORMAL) 06/13/23 18:17 Ur Leukocyte Esterase Negative (NEGATIVE) 06/13/23 18:17 Urine RBC None seen /HPF (0-3) 06/13/23 18:17 Urine WBC None seen /HPF (0-5) 06/13/23 18:17 Ur Squamous Epith Cells Negative /HPF (NEGATIVE) 06/13/23 18:17 Urine Bacteria Negative /HPF (NEGATIVE) 06/13/23 18:17 Urine Yeast Many /HPF (NEGATIVE) 06/13/23 18:17 Ur Culture Indicated? No/not indicated 06/13/23 18:17 Plan (1) Acute renal failure: Status: Acute Narrative Support Text: IV HYDRATION WITH STRICT I&OS DAILY LABS, KAYEXALATE THERAPY EKG MONITORING, REPEAT AM CXR NI CATH BP CONTROL (2) CHF (congestive heart failure): Status: Chronic Qualifiers: Heart failure chronicity: unspecified Heart failure type: unspecified Qualified Code(s): I50.9 - Heart failure, unspecified (3) Hypertension: Status: Chronic (4) Degenerative disc disease, lumbar: Status: Acute (5) Hyperkalemia: Status: Acute
[2023-06-14] MEDS: ZOCOR TAB 40 MG PO SCH (20:13)
[2023-06-14] MEDS: NEURONTIN CAP 300 MG PO SCH (20:14)
[2023-06-14] MEDS: SNACK - Diabetic Appropriate PO SCH (20:51)
[2023-06-14] MEDS ORDERED: XARELTO PO SCH (21:00)
[2023-06-15] MEDS: NS 1/2 1,000 ML IV 1,000 ML IV SCH ×2 (02:25→21:14)
[2023-06-15] MEDS: SYNTHROID 112 mcg TAB PO SCH (05:36)
[2023-06-15 05:59] LABS: BASOPHILS # (AUTO) 0.1 X10^3/uL (0.0-0.1); BASOPHILS % (AUTO) 0.8 % (0.2-1.0); EOSINOPHILS # (AUTO) 0.4 x10^3/uL (0.0-0.2); EOSINOPHILS % (AUTO) 3.7 % (0.9-2.9); HEMATOCRIT 27.3 % (36.0-47.0); HEMOGLOBIN 8.6 g/dL (12.0-16.0); LYMPHOCYTES # (AUTO) 3.7 X10^3/uL (1.3-2.9); LYMPHOCYTES % (AUTO) 33.2 % (21.0-51.0); MEAN CORPUSCULAR HEMOGLOBIN 31.1 pg (27.0-34.0); MEAN CORPUSCULAR HGB CONC 31.4 g/dL (33.0-35.0); MEAN CORPUSCULAR VOLUME 99.1 fL (80.0-100.0); MEAN PLATELET VOLUME 10.8 fL (7.4-11.0); MONOCYTES # (AUTO) 0.7 x10^3/uL (0.3-0.8); NEUTROPHILS # (AUTO) 6.3 x10^3/uL (2.2-4.8); NEUTROPHILS % (AUTO) 56.3 % (42.0-75.0); PLATELET COUNT 186 X10^3/uL (150.0-450.0); RED BLOOD COUNT 2.75 X10^6/uL (3.5-5.4); RED CELL DISTRIBUTION WIDTH 15.2 % (11.6-16.5); WHITE BLOOD COUNT 11.3 X10^3/uL (3.6-10.0)
[2023-06-15 06:26] LABS: ALANINE AMINOTRANSFERASE 11 Units/L (12-78); ALBUMIN 1.8 g/dL (3.4-5.0); ALKALINE PHOSPHATASE 148 Units/L (46-116); ASPARTATE AMINO TRANSFERASE 18 Units/L (15-37); BLOOD UREA NITROGEN 40 mg/dL (7-18); CALCIUM 8.1 mg/dL (8.5-10.1); CARBON DIOXIDE 22.3 mmol/L (21-32); CHLORIDE 106 mmol/L (98-107); COR CA(FOR HYPOALB) 9.9 mg/dL (8.5-10.1); CREATININE 3.47 mg/dL (0.55-1.02); GLUCOSE 99 mg/dL (65-99); POTASSIUM 4.4 mmol/L (3.5-5.1); SODIUM 138 mmol/L (136-145); TOTAL PROTEIN 6.1 g/dL (6.4-8.2); eGFR NON BLACK RACES 14 (>60)
[2023-06-15] MEDS: PROTONIX TAB 40 MG PO SCH (09:54)
[2023-06-15] MEDS: KEPPRA TAB 500 MG PO SCH ×2 (09:54→21:08)
[2023-06-15] MEDS: MIRAPEX TAB 0.25 MG PO SCH ×2 (09:54→21:10)
[2023-06-15] MEDS: CELEXA PO SCH (09:55)
[2023-06-15] MEDS: COLACE CAP 100 MG PO SCH ×2 (09:55→21:09)
[2023-06-15] MEDS: VITAMIN D3 125 mcg (5,000 UNITS) PO SCH (09:55)
[2023-06-15] MEDS: PEPCID TAB 20 MG PO SCH (09:55)
[2023-06-15] MEDS: DILANTIN CAP 100 MG EXT REL PO SCH ×2 (09:55→21:09)
[2023-06-15] MEDS: ZYLOPRIM PO SCH ×2 (09:55→21:10)
[2023-06-15] MEDS: HEMOCYTE-PLUS PO SCH (09:55)
[2023-06-15] MEDS: LASIX IVP SCH (10:00)
[2023-06-15] MEDS: FOLIC ACID TAB 1 MG PO SCH (10:07)
[2023-06-15] MEDS: SNACK - Diabetic Appropriate PO SCH (20:24)
--- NOTE | 2023-06-15 20:47 | PCM.PROG ---
Progress Note Progress Note for Day of Date of Exam: 06/15/23 Subjective Subjective: PT IS 67 BF, ER ADMISSION WITH ACUTE ON CHRONIC RENAL FAILURE AND HYPERKALEMIA. PT HAS PMH OF CHF AND HAS BEEN ON DIURETIC THERAPY. [facility] REPORTS PT HAS HAD INCREASED WEAKNESS AND AMS. PT WAS STARTED ON IV HYDRATION ON ADMISSION FROM THE ER. IV FLUIDS CHANGES TO 1/2NS AT 75CC/HR WITH NI CATH FOR STRICT I&OS. PT GIVEN KAYEXALATE FOR HYPERKALEMIA. PT WILL NEED CONTINUOUS CARDIAC MONITORING AND CE. BP CONTROL CONTINUED. VERIFY HOME MEDICATION AND HOLD NSAIDS. Saturday, 15 June 2023 This is a pleasant 67-year-old female who presented through the [facility] emergency department with acute on chronic renal failure and hyperkalemia. She also has a history of congestive heart failure and is on diuretic therapy. She is a resident of [facility]. She has been having increasing altered mental status and weakness over the last few days. She had been started on IV hydration in the emergency department on half-normal saline strict I's and O's. Her potassium is normalized this morning to 4.4 and sodium is 138. Her creatinine is improved to 3.47 from greater than 4. She still seems sluggish but she did answer some questions slowly this morning. Her hemoglobin dropped from 9.8 down to 8.6 today. We will watch her over the next few days to see if her hemoglobin normalizes I will make sure the patient is on Protonix 40 mg IV daily for GI protection. Repeat CBC in a.m. Repeat CMP as well to the patient's BUN and creatinine are doing. Past Medical Family Social History Allergies: Allergies No Known Drug Allergies Allergy (Verified 01/05/21 16:23) Vital Signs and I&O's Vital Signs: Vital Signs Temperature 97.9 F Temperature 98.1 F Pulse Rate [Right Brachial] 95 Pulse Rate [Right Brachial] 99 Respiratory Rate 18 Respiratory Rate 20 Blood Pressure [Right Arm] 119/66 Blood Pressure [Right Arm] 115/83 O2 Sat by Pulse Oximetry 100 O2 Sat by Pulse Oximetry 100 Intake and Output: Intake & Output 06/13/23 06/14/23 06/15/23 06/16/23 11:59 11:59 11:59 11:59 Intake Total 1992 2840 / 2840 673 / 673 Output Total 550 / 550 1620 / 1620 1200 / 1200 Balance 1443 / 1443 1220 / 1220 -527 / -527 Physical Exam Oriented: Person Eyes: Normal Ear: Normal Throat: Dry Cardiovascular: Tachycardia and Edema : Normal Tenderness: Diffuse and Mild Skin: Decreased Turgur Musculoskeletal: Motor Deficit Mood Description: Flat Affect: Flat Speech Pattern: Unclear Laboratory and Diagnostics 06/15/23 05:00 06/15/23 05:00 Labs: Laboratory WBC 11.3 X10^3/uL (3.6-10.0) H 06/15/23 05:00 RBC 2.75 X10^6/uL (3.5-5.4) L 06/15/23 05:00 Hgb 8.6 g/dL (12.0-16.0) L 06/15/23 05:00 Hct 27.3 % (36.0-47.0) L 06/15/23 05:00 MCV 99.1 fL (80.0-100.0) 06/15/23 05:00 MCH 31.1 pg (27.0-34.0) 06/15/23 05:00 MCHC 31.4 g/dL (33.0-35.0) L 06/15/23 05:00 RDW 15.2 % (11.6-16.5) 06/15/23 05:00 Plt Count 186 X10^3/uL (150.0-450.0) 06/15/23 05:00 MPV 10.8 fL (7.4-11.0) 06/15/23 05:00 Neut % (Auto) 56.3 % (42.0-75.0) 06/15/23 05:00 Lymph % (Auto) 33.2 % (21.0-51.0) 06/15/23 05:00 [place] % (Auto) 6.0 % (0.0-13.0) 06/15/23 05:00 Eos % (Auto) 3.7 % (0.9-2.9) H 06/15/23 05:00 Baso % (Auto) 0.8 % (0.2-1.0) 06/15/23 05:00 Neut # (Auto) 6.3 x10^3/uL (2.2-4.8) H 06/15/23 05:00 Lymph # (Auto) 3.7 X10^3/uL (1.3-2.9) H 06/15/23 05:00 [place] # (Auto) 0.7 x10^3/uL (0.3-0.8) 06/15/23 05:00 Eos # (Auto) 0.4 x10^3/uL (0.0-0.2) H 06/15/23 05:00 Baso # (Auto) 0.1 X10^3/uL (0.0-0.1) 06/15/23 05:00 Absolute Nucleated RBC 0.1 /100WBC 06/15/23 05:00 Sodium 138 mmol/L (136-145) 06/15/23 05:00 Corrected Sodium TNP 06/15/23 05:00 Potassium 4.4 mmol/L (3.5-5.1) 06/15/23 05:00 Chloride 106 mmol/L (98-107) 06/15/23 05:00 Carbon Dioxide 22.3 mmol/L (21-32) 06/15/23 05:00 BUN 40 mg/dL (7-18) H 06/15/23 05:00 Creatinine 3.47 mg/dL (0.55-1.02) H 06/15/23 05:00 Est GFR (MDRD) Af Amer 17 (>60) L 06/15/23 05:00 Est GFR (MDRD) Non-Af 14 (>60) L 06/15/23 05:00 Glucose 99 mg/dL (65-99) 06/15/23 05:00 POC Glucose (mg/dL) 123 mg/dL (65-99) H 06/15/23 20:08 Calcium 8.1 mg/dL (8.5-10.1) L 06/15/23 05:00 Corrected Calcium 9.9 mg/dL (8.5-10.1) 06/15/23 05:00 Total Bilirubin 0.20 mg/dL (0.2-1.0) 06/15/23 05:00 AST 18 Units/L (15-37) 06/15/23 05:00 ALT 11 Units/L (12-78) L 06/15/23 05:00 Alkaline Phosphatase 148 Units/L (46-116) H 06/15/23 05:00 Creatine Kinase 39 Units/L (26-192) 06/14/23 06:23 Troponin I High Sens 4.4 ng/L (4.0-60.0) 06/14/23 06:23 B-Natriuretic Peptide 102 pg/mL (0-79) H 06/14/23 06:23 Total Protein 6.1 g/dL (6.4-8.2) L 06/15/23 05:00 Albumin 1.8 g/dL (3.4-5.0) L 06/15/23 05:00 Globulin 4.3 g/dL (2.5-4.5) 06/15/23 05:00 Albumin/Globulin Ratio 0.4 Ratio (1.1-2.1) L 06/15/23 05:00 Specimen Type Catherized urine 06/13/23 18:17 Urine Color Yellow (YELLOW) 06/13/23 18:17 Urine Appearance Clear (CLEAR) 06/13/23 18:17 Urine pH 5.0 (5.0 - 8.0) 06/13/23 18:17 Ur Specific [place] 1.020 (1.000-1.030) 06/13/23 18:17 Urine Protein 1+ (NEGATIVE) 06/13/23 18:17 Urine Glucose (UA) Negative (NEGATIVE) 06/13/23 18:17 Urine Ketones Negative (NEGATIVE) 06/13/23 18:17 Urine Blood Negative (NEGATIVE) 06/13/23 18:17 Urine Nitrite Negative (NEGATIVE) 06/13/23 18:17 Urine Bilirubin Negative (NEGATIVE) 06/13/23 18:17 Urine Urobilinogen Normal (NORMAL) 06/13/23 18:17 Ur Leukocyte Esterase Negative (NEGATIVE) 06/13/23 18:17 Urine RBC None seen /HPF (0-3) 06/13/23 18:17 Urine WBC None seen /HPF (0-5) 06/13/23 18:17 Ur Squamous Epith Cells Negative /HPF (NEGATIVE) 06/13/23 18:17 Urine Bacteria Negative /HPF (NEGATIVE) 06/13/23 18:17 Urine Yeast Many /HPF (NEGATIVE) 06/13/23 18:17 Ur Culture Indicated? No/not indicated 06/13/23 18:17 Plan (1) Acute renal failure: Status: Acute (2) CHF (congestive heart failure): Status: Chronic Qualifiers: Heart failure chronicity: unspecified Heart failure type: unspecified Qualified Code(s): I50.9 - Heart failure, unspecified (3) Hypertension: Status: Chronic (4) Degenerative disc disease, lumbar: Status: Acute (5) Hyperkalemia: Status: Acute (6) Anemia: Status: Acute Plan: Continue the patient on Protonix 40 mg IV daily for GI protection.
[2023-06-15] MEDS ORDERED: NS 1/2 1,000 ML IV 1,000 ML IV ONE (21:07)
[2023-06-15] MEDS: NEURONTIN CAP 300 MG PO SCH (21:09)
[2023-06-15] MEDS: ZOCOR TAB 40 MG PO SCH (21:09)
[2023-06-16] MEDS: NS 1/2 1,000 ML IV 1,000 ML IV SCH ×3 (01:27→21:16)
[2023-06-16] MEDS: SYNTHROID 112 mcg TAB PO SCH (05:42)
[2023-06-16 05:51] LABS: BASOPHILS % (AUTO) 0.4 % (0.2-1.0); EOSINOPHILS # (AUTO) 0.5 x10^3/uL (0.0-0.2); EOSINOPHILS % (AUTO) 4.5 % (0.9-2.9); HEMATOCRIT 25.9 % (36.0-47.0); HEMOGLOBIN 8.4 g/dL (12.0-16.0); LYMPHOCYTES # (AUTO) 4.2 X10^3/uL (1.3-2.9); LYMPHOCYTES % (AUTO) 38.8 % (21.0-51.0); MEAN CORPUSCULAR HEMOGLOBIN 31.7 pg (27.0-34.0); MEAN CORPUSCULAR HGB CONC 32.6 g/dL (33.0-35.0); MEAN CORPUSCULAR VOLUME 97.2 fL (80.0-100.0); MONOCYTES # (AUTO) 0.6 x10^3/uL (0.3-0.8); MONOCYTES % (AUTO) 5.8 % (0.0-13.0); NEUTROPHILS # (AUTO) 5.5 x10^3/uL (2.2-4.8); NEUTROPHILS % (AUTO) 50.5 % (42.0-75.0); PLATELET COUNT 187 X10^3/uL (150.0-450.0); RED BLOOD COUNT 2.66 X10^6/uL (3.5-5.4); WHITE BLOOD COUNT 10.9 X10^3/uL (3.6-10.0)
[2023-06-16 06:09] LABS: ALANINE AMINOTRANSFERASE 12 Units/L (12-78); ALBUMIN 1.7 g/dL (3.4-5.0); ALKALINE PHOSPHATASE 134 Units/L (46-116); ASPARTATE AMINO TRANSFERASE 13 Units/L (15-37); BLOOD UREA NITROGEN 35 mg/dL (7-18); CARBON DIOXIDE 22.4 mmol/L (21-32); CHLORIDE 106 mmol/L (98-107); COR CA(FOR HYPOALB) 9.8 mg/dL (8.5-10.1); CREATININE 2.89 mg/dL (0.55-1.02); GLUCOSE 95 mg/dL (65-99); POTASSIUM 3.7 mmol/L (3.5-5.1); SODIUM 138 mmol/L (136-145); TOTAL PROTEIN 5.8 g/dL (6.4-8.2); eGFR NON BLACK RACES 17 (>60)
[2023-06-16] MEDS ORDERED: CONSULT PHARMACY - POTASSIUM & MAGNESIUM XX SCH (07:00)
[2023-06-16] MEDS ORDERED: ZOFRAN INJ 4 MG VIAL ONE (07:39)
[2023-06-16] MEDS: ZOFRAN INJ 4 MG VIAL IVP PRN (07:41)
[2023-06-16] MEDS ORDERED: MICRO K EXTEN CAP 10 MEQ PO SCH (09:00)
[2023-06-16] MEDS: MAG-OX TAB PO SCH ×2 (09:14→15:17)
[2023-06-16] MEDS: MIRAPEX TAB 0.25 MG PO SCH ×2 (09:14→21:11)
[2023-06-16] MEDS: HEMOCYTE-PLUS PO SCH (09:14)
[2023-06-16] MEDS: KEPPRA TAB 500 MG PO SCH ×2 (09:15→21:11)
[2023-06-16] MEDS: DILANTIN CAP 100 MG EXT REL PO SCH ×2 (09:15→21:12)
[2023-06-16] MEDS: PROTONIX TAB 40 MG PO SCH (09:16)
[2023-06-16] MEDS: CELEXA PO SCH (09:17)
[2023-06-16] MEDS: FOLIC ACID TAB 1 MG PO SCH (09:17)
[2023-06-16] MEDS: VITAMIN D3 125 mcg (5,000 UNITS) PO SCH (09:17)
[2023-06-16] MEDS: COLACE CAP 100 MG PO SCH ×2 (09:18→21:12)
[2023-06-16] MEDS: LASIX IVP SCH (09:18)
[2023-06-16] MEDS: ZYLOPRIM PO SCH ×2 (09:18→21:11)
[2023-06-16] MEDS ORDERED: NS 1/2 1,000 ML IV 1,000 ML IV ONE ×2 (12:55→19:36)
[2023-06-16] MEDS ORDERED: MAG-OX TAB ONE (15:16)
--- NOTE | 2023-06-16 17:05 | PCM.PROG ---
Progress Note Progress Note for Day of Date of Exam: 06/16/23 Subjective Subjective: PT IS 67 BF, ER ADMISSION WITH ACUTE ON CHRONIC RENAL FAILURE AND HYPERKALEMIA. PT HAS PMH OF CHF AND HAS BEEN ON DIURETIC THERAPY. [facility] REPORTS PT HAS HAD INCREASED WEAKNESS AND AMS. PT WAS STARTED ON IV HYDRATION ON ADMISSION FROM THE ER. IV FLUIDS CHANGES TO 1/2NS AT 75CC/HR WITH NI CATH FOR STRICT I&OS. PT GIVEN KAYEXALATE FOR HYPERKALEMIA. PT WILL NEED CONTINUOUS CARDIAC MONITORING AND CE. BP CONTROL CONTINUED. VERIFY HOME MEDICATION AND HOLD NSAIDS. 15 June 2023 This is a pleasant 67-year-old female who presented through the [facility] emergency department with acute on chronic renal failure and hyperkalemia. She also has a history of congestive heart failure and is on diuretic therapy. She is a resident of [facility]. She has been having increasing altered mental status and weakness over the last few days. She had been started on IV hydration in the emergency department on half-normal saline strict I's and O's. Her potassium is normalized this morning to 4.4 and sodium is 138. Her creatinine is improved to 3.47 from greater than 4. She still seems sluggish but she did answer some questions slowly this morning. Her hemoglobin dropped from 9.8 down to 8.6 today. We will watch her over the next few days to see if her hemoglobin normalizes I will make sure the patient is on Protonix 40 mg IV daily for GI protection. Repeat CBC in a.m. Repeat CMP as well to the patient's BUN and creatinine are doing. 16 June 2023 The patient is doing well this morning with no new complaints or problems over night. Her hemoglobin is stable 8.4 and I see her creatinine has improved to 2.89. She should be transferred back to [facility] in the next day or 2 as she is recovered from her acute on chronic renal failure and hyperkalemia. No new changes to her treatment today. Past Medical Family Social History Allergies: Allergies No Known Drug Allergies Allergy (Verified 01/05/21 16:23) Vital Signs and I&O's Vital Signs: Vital Signs Temperature 97.9 F Temperature 97.9 F Pulse Rate [Right Brachial] 75 Pulse Rate [Right Brachial] 90 Respiratory Rate 20 Respiratory Rate 20 Blood Pressure [Right Arm] 103/67 Blood Pressure [Right Arm] 107/60 O2 Sat by Pulse Oximetry 97 O2 Sat by Pulse Oximetry 98 Intake and Output: Intake & Output 06/14/23 06/15/23 06/16/23 06/17/23 11:59 11:59 11:59 11:59 Intake Total 1992 2840 / 2840 2168 / 2168 360 / 360 Output Total 550 / 550 1620 / 1620 2225 / 2225 800 / 800 Balance 1443 / 1443 1220 / 1220 -57 / -57 -440 / -440 Physical Exam Oriented: Person Eyes: Normal Ear: Normal Throat: Dry Cardiovascular: Tachycardia and Edema : Normal Tenderness: Diffuse and Mild Skin: Decreased Turgur Musculoskeletal: Motor Deficit Mood Description: Flat Affect: Flat Speech Pattern: Clear and Appropriate Laboratory and Diagnostics 06/16/23 05:28 06/16/23 05:28 Labs: Laboratory WBC 10.9 X10^3/uL (3.6-10.0) H 06/16/23 05:28 RBC 2.66 X10^6/uL (3.5-5.4) L 06/16/23 05:28 Hgb 8.4 g/dL (12.0-16.0) L 06/16/23 05:28 Hct 25.9 % (36.0-47.0) L 06/16/23 05:28 MCV 97.2 fL (80.0-100.0) 06/16/23 05:28 MCH 31.7 pg (27.0-34.0) 06/16/23 05:28 MCHC 32.6 g/dL (33.0-35.0) L 06/16/23 05:28 RDW 15.0 % (11.6-16.5) 06/16/23 05:28 Plt Count 187 X10^3/uL (150.0-450.0) 06/16/23 05:28 MPV 10.0 fL (7.4-11.0) 06/16/23 05:28 Neut % (Auto) 50.5 % (42.0-75.0) 06/16/23 05:28 Lymph % (Auto) 38.8 % (21.0-51.0) 06/16/23 05:28 [place] % (Auto) 5.8 % (0.0-13.0) 06/16/23 05:28 Eos % (Auto) 4.5 % (0.9-2.9) H 06/16/23 05:28 Baso % (Auto) 0.4 % (0.2-1.0) 06/16/23 05:28 Neut # (Auto) 5.5 x10^3/uL (2.2-4.8) H 06/16/23 05:28 Lymph # (Auto) 4.2 X10^3/uL (1.3-2.9) H 06/16/23 05:28 [place] # (Auto) 0.6 x10^3/uL (0.3-0.8) 06/16/23 05:28 Eos # (Auto) 0.5 x10^3/uL (0.0-0.2) H 06/16/23 05:28 Baso # (Auto) 0.0 X10^3/uL (0.0-0.1) 06/16/23 05:28 Absolute Nucleated RBC 0.0 /100WBC 06/16/23 05:28 Sodium 138 mmol/L (136-145) 06/16/23 05:28 Corrected Sodium TNP 06/16/23 05:28 Potassium 3.7 mmol/L (3.5-5.1) 06/16/23 05:28 Chloride 106 mmol/L (98-107) 06/16/23 05:28 Carbon Dioxide 22.4 mmol/L (21-32) 06/16/23 05:28 BUN 35 mg/dL (7-18) H 06/16/23 05:28 Creatinine 2.89 mg/dL (0.55-1.02) H 06/16/23 05:28 Est GFR (MDRD) Af Amer 21 (>60) L 06/16/23 05:28 Est GFR (MDRD) Non-Af 17 (>60) L 06/16/23 05:28 Glucose 95 mg/dL (65-99) 06/16/23 05:28 POC Glucose (mg/dL) 101 mg/dL (65-99) H 06/16/23 16:34 Calcium 8.0 mg/dL (8.5-10.1) L 06/16/23 05:28 Corrected Calcium 9.8 mg/dL (8.5-10.1) 06/16/23 05:28 Magnesium 1.4 mg/dL (2.0-2.9) L 06/16/23 05:28 Total Bilirubin 0.20 mg/dL (0.2-1.0) 06/16/23 05:28 AST 13 Units/L (15-37) L 06/16/23 05:28 ALT 12 Units/L (12-78) 06/16/23 05:28 Alkaline Phosphatase 134 Units/L (46-116) H 06/16/23 05:28 Creatine Kinase 39 Units/L (26-192) 06/14/23 06:23 Troponin I High Sens 4.4 ng/L (4.0-60.0) 06/14/23 06:23 B-Natriuretic Peptide 102 pg/mL (0-79) H 06/14/23 06:23 Total Protein 5.8 g/dL (6.4-8.2) L 06/16/23 05:28 Albumin 1.7 g/dL (3.4-5.0) L 06/16/23 05:28 Globulin 4.1 g/dL (2.5-4.5) 06/16/23 05:28 Albumin/Globulin Ratio 0.4 Ratio (1.1-2.1) L 06/16/23 05:28 Specimen Type Catherized urine 06/13/23 18:17 Urine Color Yellow (YELLOW) 06/13/23 18:17 Urine Appearance Clear (CLEAR) 06/13/23 18:17 Urine pH 5.0 (5.0 - 8.0) 06/13/23 18:17 Ur Specific [place] 1.020 (1.000-1.030) 06/13/23 18:17 Urine Protein 1+ (NEGATIVE) 06/13/23 18:17 Urine Glucose (UA) Negative (NEGATIVE) 06/13/23 18:17 Urine Ketones Negative (NEGATIVE) 06/13/23 18:17 Urine Blood Negative (NEGATIVE) 06/13/23 18:17 Urine Nitrite Negative (NEGATIVE) 06/13/23 18:17 Urine Bilirubin Negative (NEGATIVE) 06/13/23 18:17 Urine Urobilinogen Normal (NORMAL) 06/13/23 18:17 Ur Leukocyte Esterase Negative (NEGATIVE) 06/13/23 18:17 Urine RBC None seen /HPF (0-3) 06/13/23 18:17 Urine WBC None seen /HPF (0-5) 06/13/23 18:17 Ur Squamous Epith Cells Negative /HPF (NEGATIVE) 06/13/23 18:17 Urine Bacteria Negative /HPF (NEGATIVE) 06/13/23 18:17 Urine Yeast Many /HPF (NEGATIVE) 06/13/23 18:17 Ur Culture Indicated? No/not indicated 06/13/23 18:17 Plan (1) Acute renal failure: Status: Acute (2) CHF (congestive heart failure): Status: Chronic Qualifiers: Heart failure chronicity: unspecified Heart failure type: unspecified Qualified Code(s): I50.9 - Heart failure, unspecified (3) Hypertension: Status: Chronic (4) Degenerative disc disease, lumbar: Status: Acute (5) Hyperkalemia: Status: Acute (6) Anemia: Status: Acute Plan: Continue the patient on Protonix 40 mg IV daily for GI protection.
[2023-06-16] MEDS: NEURONTIN CAP 300 MG PO SCH (21:12)
[2023-06-16] MEDS: SNACK - Diabetic Appropriate PO SCH (21:12)
[2023-06-16] MEDS: ZOCOR TAB 40 MG PO SCH (21:12)
[2023-06-17] MEDS: NS 1/2 1,000 ML IV 1,000 ML IV SCH (03:45)
[2023-06-17] MEDS: SYNTHROID 112 mcg TAB PO SCH (05:43)
[2023-06-17 06:33] LABS: BASOPHILS # (AUTO) 0.1 X10^3/uL (0.0-0.1); BASOPHILS % (AUTO) 0.7 % (0.2-1.0); EOSINOPHILS # (AUTO) 0.5 x10^3/uL (0.0-0.2); EOSINOPHILS % (AUTO) 4.4 % (0.9-2.9); HEMATOCRIT 24.7 % (36.0-47.0); HEMOGLOBIN 7.9 g/dL (12.0-16.0); LYMPHOCYTES # (AUTO) 3.9 X10^3/uL (1.3-2.9); LYMPHOCYTES % (AUTO) 31.8 % (21.0-51.0); MEAN CORPUSCULAR HEMOGLOBIN 31.2 pg (27.0-34.0); MEAN CORPUSCULAR HGB CONC 31.8 g/dL (33.0-35.0); MEAN CORPUSCULAR VOLUME 97.9 fL (80.0-100.0); MEAN PLATELET VOLUME 9.5 fL (7.4-11.0); MONOCYTES # (AUTO) 0.7 x10^3/uL (0.3-0.8); NEUTROPHILS # (AUTO) 7.1 x10^3/uL (2.2-4.8); NEUTROPHILS % (AUTO) 57.1 % (42.0-75.0); PLATELET COUNT 178 X10^3/uL (150.0-450.0); RED BLOOD COUNT 2.52 X10^6/uL (3.5-5.4); RED CELL DISTRIBUTION WIDTH 14.7 % (11.6-16.5)
[2023-06-17 06:48] LABS: ALANINE AMINOTRANSFERASE 14 Units/L (12-78); ALBUMIN 1.8 g/dL (3.4-5.0); ALKALINE PHOSPHATASE 135 Units/L (46-116); ASPARTATE AMINO TRANSFERASE 21 Units/L (15-37); BLOOD UREA NITROGEN 32 mg/dL (7-18); CARBON DIOXIDE 24.7 mmol/L (21-32); CHLORIDE 105 mmol/L (98-107); COR CA(FOR HYPOALB) 9.8 mg/dL (8.5-10.1); CREATININE 2.62 mg/dL (0.55-1.02); GLUCOSE 99 mg/dL (65-99); MAGNESIUM 1.5 mg/dL (2.0-2.9); SODIUM 136 mmol/L (136-145); eGFR NON BLACK RACES 19 (>60)
[2023-06-17 06:55] LABS: POTASSIUM 4.7 mmol/L (3.5-5.1)
[2023-06-17 07:23] LABS: PLATELET MORPHOLOGY COMMENT NORMAL (NORMAL); WHITE BLOOD COUNT 13.1 X10^3/uL (3.6-10.0)
[2023-06-17] MEDS ORDERED: CONSULT PHARMACY - POTASSIUM & MAGNESIUM XX SCH (08:00)
[2023-06-17] MEDS ORDERED: MAGNESIUM SULFATE 50% INJ VIAL ONE ×2 (08:55→20:31)
[2023-06-17] MEDS ORDERED: NS 1/2 1,000 ML IV 1,000 ML IV ONE ×2 (08:55→20:31)
[2023-06-17] MEDS: HEMOCYTE-PLUS PO SCH (09:04)
[2023-06-17] MEDS: NS 1/2 1,000 ML IV 1,000 ML with MAGNESIUM SULFATE 50% INJ VIAL 1 G IV SCH ×4 (09:05→20:48)
[2023-06-17] MEDS: PEPCID TAB 20 MG PO SCH (09:05)
[2023-06-17] MEDS: MIRAPEX TAB 0.25 MG PO SCH ×2 (09:06→21:03)
[2023-06-17] MEDS: CELEXA PO SCH (09:06)
[2023-06-17] MEDS: ZYLOPRIM PO SCH ×2 (09:06→20:50)
[2023-06-17] MEDS: LASIX IVP SCH (09:07)
[2023-06-17] MEDS: KEPPRA TAB 500 MG PO SCH ×2 (09:07→21:03)
[2023-06-17] MEDS: COLACE CAP 100 MG PO SCH ×2 (09:07→20:50)
[2023-06-17] MEDS: VITAMIN D3 125 mcg (5,000 UNITS) PO SCH (09:07)
[2023-06-17] MEDS: DILANTIN CAP 100 MG EXT REL PO SCH ×2 (09:07→21:04)
[2023-06-17] MEDS: FOLIC ACID TAB 1 MG PO SCH (09:07)
[2023-06-17] MEDS: PROTONIX TAB 40 MG PO SCH (09:07)
[2023-06-17] MEDS: SNACK - Diabetic Appropriate PO SCH (20:50)
[2023-06-17] MEDS: ZOCOR TAB 40 MG PO SCH (21:00)
[2023-06-17] MEDS: NEURONTIN CAP 300 MG PO SCH (21:02)
[2023-06-18] MEDS: SYNTHROID 112 mcg TAB PO SCH (05:38)
--- NOTE | 2023-06-18 05:40 | RAD ---
HISTORYCHF Relevant Clinical InformationSTUDYCHEST, 1 [id number] trachea is midline. The cardiac silhouette is mildly enlarged.. The lungs are clear without focal infiltrate or effusion. The bony thorax is unremarkable.IMPRESSIONMild cardiomegalyNo active cardiopulmonary disease.Electronically signed by: Fili Jerome (Jun 18, 2023 05:39:35)
[2023-06-18 05:54] LABS: BASOPHILS % (AUTO) 0.3 % (0.2-1.0); EOSINOPHILS # (AUTO) 0.4 x10^3/uL (0.0-0.2); EOSINOPHILS % (AUTO) 3.9 % (0.9-2.9); HEMATOCRIT 24.1 % (36.0-47.0); HEMOGLOBIN 7.8 g/dL (12.0-16.0); LYMPHOCYTES # (AUTO) 3.5 X10^3/uL (1.3-2.9); LYMPHOCYTES % (AUTO) 32.2 % (21.0-51.0); MEAN CORPUSCULAR HEMOGLOBIN 31.7 pg (27.0-34.0); MEAN CORPUSCULAR HGB CONC 32.2 g/dL (33.0-35.0); MEAN CORPUSCULAR VOLUME 98.2 fL (80.0-100.0); MEAN PLATELET VOLUME 9.4 fL (7.4-11.0); MONOCYTES # (AUTO) 0.7 x10^3/uL (0.3-0.8); MONOCYTES % (AUTO) 6.4 % (0.0-13.0); NEUTROPHILS # (AUTO) 6.3 x10^3/uL (2.2-4.8); NEUTROPHILS % (AUTO) 57.2 % (42.0-75.0); PLATELET COUNT 182 X10^3/uL (150.0-450.0); RED BLOOD COUNT 2.46 X10^6/uL (3.5-5.4)
[2023-06-18 06:10] LABS: ALANINE AMINOTRANSFERASE 12 Units/L (12-78); ALBUMIN 1.6 g/dL (3.4-5.0); ALKALINE PHOSPHATASE 127 Units/L (46-116); ASPARTATE AMINO TRANSFERASE 14 Units/L (15-37); BLOOD UREA NITROGEN 28 mg/dL (7-18); CARBON DIOXIDE 23.3 mmol/L (21-32); CHLORIDE 105 mmol/L (98-107); COR CA(FOR HYPOALB) 9.9 mg/dL (8.5-10.1); CREATININE 2.43 mg/dL (0.55-1.02); GLUCOSE 99 mg/dL (65-99); POTASSIUM 3.9 mmol/L (3.5-5.1); SODIUM 136 mmol/L (136-145); TOTAL PROTEIN 5.6 g/dL (6.4-8.2); eGFR NON BLACK RACES 21 (>60)
[2023-06-18] MEDS ORDERED: MAGNESIUM SULFATE 50% INJ VIAL ONE (08:10)
[2023-06-18] MEDS ORDERED: NS 1/2 1,000 ML IV 0 ML IV ONE (08:10)
[2023-06-18] MEDS: FOLIC ACID TAB 1 MG PO SCH (08:25)
[2023-06-18] MEDS: PROTONIX TAB 40 MG PO SCH (08:25)
[2023-06-18] MEDS: HEMOCYTE-PLUS PO SCH (08:25)
[2023-06-18] MEDS: ZYLOPRIM PO SCH ×2 (08:25→20:49)
[2023-06-18] MEDS: COLACE CAP 100 MG PO SCH ×2 (08:25→20:49)
[2023-06-18] MEDS: DILANTIN CAP 100 MG EXT REL PO SCH ×2 (08:26→20:49)
[2023-06-18] MEDS: LASIX IVP SCH (08:26)
[2023-06-18] MEDS: VITAMIN D3 125 mcg (5,000 UNITS) PO SCH (08:26)
[2023-06-18] MEDS: MIRAPEX TAB 0.25 MG PO SCH ×2 (08:26→20:51)
[2023-06-18] MEDS: KEPPRA TAB 500 MG PO SCH ×2 (08:26→20:50)
[2023-06-18] MEDS: CELEXA PO SCH (08:26)
[2023-06-18] MEDS: NS 1,000 ML IV 1,000 ML with MAGNESIUM SULFATE 50% INJ VIAL 1 G IV SCH ×2 (09:23)
--- NOTE | 2023-06-18 18:10 | PCM.PROG ---
Progress Note Progress Note for Day of Date of Exam: 06/18/23 Subjective Subjective: PT IS 67 BF, ER ADMISSION WITH HYPERKALEMIA AND ACUTE ON CHRONIC RENAL FAILURE, HX CHF, HTN, DIABETES, RETIREMENT ANTI COAG THERAPY PT HAS BEEN ON GENTLE IV HYDRATION WITH LOW DOSE IV LASIX, STRICT I&OS SINCE ADMISSION. POTASSIUM IS 3.9 THIS MORNING AND STABLE. PT HAS IMPROVING RENAL FUNCTION WITH BUN CREAT 28/2.43. PT HAS IMPROVING ALERTNESS AND DENIES ANY CHEST PAIN. PT BP 122/70 PLAN TO REPEAT AM LABS AND CHEST XRAY Past Medical Family Social History Allergies: Allergies No Known Drug Allergies Allergy (Verified 01/05/21 16:23) Vital Signs and I&O's Vital Signs: Vital Signs Temperature 98.9 F Temperature 98.6 F Pulse Rate [Right Brachial] 87 Pulse Rate [Right Brachial] 80 Respiratory Rate 20 Respiratory Rate 20 Blood Pressure [Left Arm] 122/70 Blood Pressure [Left Arm] 111/67 O2 Sat by Pulse Oximetry 97 O2 Sat by Pulse Oximetry 98 Intake and Output: Intake & Output 06/16/23 06/17/23 06/18/23 06/19/23 11:59 11:59 11:59 11:59 Intake Total 2168 / 2168 2668 / 2668 2496 / 2496 1414 / 1414 Output Total 2225 / 2225 1675 / 1675 2250 / 2250 1200 / 1200 Balance -57 / -57 993 / 993 246 / 246 214 / 214 Physical Exam Oriented: Person Eyes: Normal Ear: Normal Throat: Dry Cardiovascular: Tachycardia and Edema : Normal Tenderness: Diffuse and Mild Skin: Decreased Turgur Musculoskeletal: Motor Deficit Mood Description: Flat Affect: Flat Speech Pattern: Appropriate and Delayed Laboratory and Diagnostics 06/18/23 05:36 06/18/23 05:36 Labs: Laboratory WBC 11.0 X10^3/uL (3.6-10.0) H 06/18/23 05:36 RBC 2.46 X10^6/uL (3.5-5.4) L 06/18/23 05:36 Hgb 7.8 g/dL (12.0-16.0) L 06/18/23 05:36 Hct 24.1 % (36.0-47.0) L 06/18/23 05:36 MCV 98.2 fL (80.0-100.0) 06/18/23 05:36 MCH 31.7 pg (27.0-34.0) 06/18/23 05:36 MCHC 32.2 g/dL (33.0-35.0) L 06/18/23 05:36 RDW 15.0 % (11.6-16.5) 06/18/23 05:36 Plt Count 182 X10^3/uL (150.0-450.0) 06/18/23 05:36 Plt Count Comment Adequate (ADEQUATE) 06/17/23 05:43 MPV 9.4 fL (7.4-11.0) 06/18/23 05:36 Neut % (Auto) 57.2 % (42.0-75.0) 06/18/23 05:36 Lymph % (Auto) 32.2 % (21.0-51.0) 06/18/23 05:36 [place] % (Auto) 6.4 % (0.0-13.0) 06/18/23 05:36 Eos % (Auto) 3.9 % (0.9-2.9) H 06/18/23 05:36 Baso % (Auto) 0.3 % (0.2-1.0) 06/18/23 05:36 Neut # (Auto) 6.3 x10^3/uL (2.2-4.8) H 06/18/23 05:36 Lymph # (Auto) 3.5 X10^3/uL (1.3-2.9) H 06/18/23 05:36 [place] # (Auto) 0.7 x10^3/uL (0.3-0.8) 06/18/23 05:36 Eos # (Auto) 0.4 x10^3/uL (0.0-0.2) H 06/18/23 05:36 Baso # (Auto) 0.0 X10^3/uL (0.0-0.1) 06/18/23 05:36 Absolute Nucleated RBC 0.0 /100WBC 06/18/23 05:36 Plt Morphology Comment Normal (NORMAL) 06/17/23 05:43 RBC Morphology Normal (NORMAL) 06/17/23 05:43 Sodium 136 mmol/L (136-145) 06/18/23 05:36 Corrected Sodium TNP 06/18/23 05:36 Potassium 3.9 mmol/L (3.5-5.1) 06/18/23 05:36 Chloride 105 mmol/L (98-107) 06/18/23 05:36 Carbon Dioxide 23.3 mmol/L (21-32) 06/18/23 05:36 BUN 28 mg/dL (7-18) H 06/18/23 05:36 Creatinine 2.43 mg/dL (0.55-1.02) H 06/18/23 05:36 Est GFR (MDRD) Af Amer 26 (>60) L 06/18/23 05:36 Est GFR (MDRD) Non-Af 21 (>60) L 06/18/23 05:36 Glucose 99 mg/dL (65-99) 06/18/23 05:36 POC Glucose (mg/dL) 95 mg/dL (65-99) 06/18/23 16:30 Calcium 8.0 mg/dL (8.5-10.1) L 06/18/23 05:36 Corrected Calcium 9.9 mg/dL (8.5-10.1) 06/18/23 05:36 Magnesium 2.0 mg/dL (2.0-2.9) 06/18/23 05:36 Iron 49 ug/dL (50-175) L 06/18/23 05:36 Total Bilirubin 0.20 mg/dL (0.2-1.0) 06/18/23 05:36 AST 14 Units/L (15-37) L 06/18/23 05:36 ALT 12 Units/L (12-78) 06/18/23 05:36 Alkaline Phosphatase 127 Units/L (46-116) H 06/18/23 05:36 Creatine Kinase 39 Units/L (26-192) 06/14/23 06:23 Troponin I High Sens 4.4 ng/L (4.0-60.0) 06/14/23 06:23 B-Natriuretic Peptide 102 pg/mL (0-79) H 06/14/23 06:23 Total Protein 5.6 g/dL (6.4-8.2) L 06/18/23 05:36 Albumin 1.6 g/dL (3.4-5.0) L 06/18/23 05:36 Globulin 4.0 g/dL (2.5-4.5) 06/18/23 05:36 Albumin/Globulin Ratio 0.4 Ratio (1.1-2.1) L 06/18/23 05:36 Specimen Type Catherized urine 06/13/23 18:17 Urine Color Yellow (YELLOW) 06/13/23 18:17 Urine Appearance Clear (CLEAR) 06/13/23 18:17 Urine pH 5.0 (5.0 - 8.0) 06/13/23 18:17 Ur Specific [place] 1.020 (1.000-1.030) 06/13/23 18:17 Urine Protein 1+ (NEGATIVE) 06/13/23 18:17 Urine Glucose (UA) Negative (NEGATIVE) 06/13/23 18:17 Urine Ketones Negative (NEGATIVE) 06/13/23 18:17 Urine Blood Negative (NEGATIVE) 06/13/23 18:17 Urine Nitrite Negative (NEGATIVE) 06/13/23 18:17 Urine Bilirubin Negative (NEGATIVE) 06/13/23 18:17 Urine Urobilinogen Normal (NORMAL) 06/13/23 18:17 Ur Leukocyte Esterase Negative (NEGATIVE) 06/13/23 18:17 Urine RBC None seen /HPF (0-3) 06/13/23 18:17 Urine WBC None seen /HPF (0-5) 06/13/23 18:17 Ur Squamous Epith Cells Negative /HPF (NEGATIVE) 06/13/23 18:17 Urine Bacteria Negative /HPF (NEGATIVE) 06/13/23 18:17 Urine Yeast Many /HPF (NEGATIVE) 06/13/23 18:17 Ur Culture Indicated? No/not indicated 06/13/23 18:17 Plan (1) Acute renal failure: Status: Acute Narrative Support Text: POTASSIUM STABLE CONTINUE IV HDYRATION BP AND BS CONTROL OCCULT STOOL, REPEAT AM LABS STRICT I&OS (2) CHF (congestive heart failure): Status: Chronic Qualifiers: Heart failure chronicity: unspecified Heart failure type: unspecified Qualified Code(s): I50.9 - Heart failure, unspecified (3) Hypertension: Status: Chronic (4) Degenerative disc disease, lumbar: Status: Acute (5) Hyperkalemia: Status: Acute (6) Anemia: Status: Acute Plan: Continue the patient on Protonix 40 mg IV daily for GI protection.
[2023-06-18] MEDS: NEURONTIN CAP 300 MG PO SCH (20:50)
[2023-06-18] MEDS: ZOCOR TAB 40 MG PO SCH (20:50)
[2023-06-18] MEDS: SNACK - Diabetic Appropriate PO SCH (21:07)
[2023-06-18] MEDS: ZOFRAN INJ 4 MG VIAL IVP PRN (22:28)
[2023-06-19] MEDS: SYNTHROID 112 mcg TAB PO SCH (05:38)
[2023-06-19 06:10] LABS: BASOPHILS # (AUTO) 0.1 X10^3/uL (0.0-0.1); BASOPHILS % (AUTO) 0.6 % (0.2-1.0); EOSINOPHILS # (AUTO) 0.5 x10^3/uL (0.0-0.2); EOSINOPHILS % (AUTO) 3.6 % (0.9-2.9); HEMATOCRIT 24.9 % (36.0-47.0); HEMOGLOBIN 7.9 g/dL (12.0-16.0); LYMPHOCYTES # (AUTO) 3.4 X10^3/uL (1.3-2.9); LYMPHOCYTES % (AUTO) 26.1 % (21.0-51.0); MEAN CORPUSCULAR HEMOGLOBIN 30.9 pg (27.0-34.0); MEAN CORPUSCULAR HGB CONC 31.5 g/dL (33.0-35.0); MEAN PLATELET VOLUME 9.7 fL (7.4-11.0); MONOCYTES # (AUTO) 0.7 x10^3/uL (0.3-0.8); MONOCYTES % (AUTO) 5.7 % (0.0-13.0); NEUTROPHILS # (AUTO) 8.3 x10^3/uL (2.2-4.8); PLATELET COUNT 195 X10^3/uL (150.0-450.0); RED BLOOD COUNT 2.54 X10^6/uL (3.5-5.4); RED CELL DISTRIBUTION WIDTH 14.7 % (11.6-16.5); WHITE BLOOD COUNT 12.9 X10^3/uL (3.6-10.0)
[2023-06-19 06:20] LABS: ALANINE AMINOTRANSFERASE 11 Units/L (12-78); ALBUMIN 1.6 g/dL (3.4-5.0); ALKALINE PHOSPHATASE 144 Units/L (46-116); ASPARTATE AMINO TRANSFERASE 18 Units/L (15-37); BLOOD UREA NITROGEN 26 mg/dL (7-18); CALCIUM 8.1 mg/dL (8.5-10.1); CARBON DIOXIDE 25.1 mmol/L (21-32); CHLORIDE 103 mmol/L (98-107); CREATININE 2.29 mg/dL (0.55-1.02); GLUCOSE 95 mg/dL (65-99); SODIUM 135 mmol/L (136-145); TOTAL PROTEIN 5.9 g/dL (6.4-8.2); eGFR NON BLACK RACES 23 (>60)
[2023-06-19] MEDS: HEMOCYTE-PLUS PO SCH (10:07)
[2023-06-19] MEDS: LASIX IVP SCH (10:07)
[2023-06-19] MEDS: ZYLOPRIM PO SCH ×2 (10:07→20:29)
[2023-06-19] MEDS: VITAMIN D3 125 mcg (5,000 UNITS) PO SCH (10:08)
[2023-06-19] MEDS: KEPPRA TAB 500 MG PO SCH ×2 (10:08→20:30)
[2023-06-19] MEDS: DILANTIN CAP 100 MG EXT REL PO SCH ×2 (10:08→20:29)
[2023-06-19] MEDS: COLACE CAP 100 MG PO SCH ×2 (10:08→20:30)
[2023-06-19] MEDS: FOLIC ACID TAB 1 MG PO SCH (10:08)
[2023-06-19] MEDS: PEPCID TAB 20 MG PO SCH (10:09)
[2023-06-19] MEDS: CELEXA PO SCH (10:09)
[2023-06-19] MEDS: MIRAPEX TAB 0.25 MG PO SCH ×2 (10:09→20:30)
[2023-06-19] MEDS: PROTONIX TAB 40 MG PO SCH (10:09)
[2023-06-19] MEDS: NS 1,000 ML IV 1,000 ML with MAGNESIUM SULFATE 50% INJ VIAL 1 G IV SCH ×2 (10:10)
[2023-06-19] MEDS: NYSTATIN CREAM TOP SCH ×2 (17:00→20:30)
[2023-06-19] MEDS: NS 1,000 ML IV 1,000 ML IV SCH ×3 (17:11→21:17)
--- NOTE | 2023-06-19 17:56 | PCM.PROG ---
Progress Note Progress Note for Day of Date of Exam: 06/19/23 Subjective Subjective: PT IS 67 BF, ER ADMISSION WITH HYPERKALEMIA AND ACUTE ON CHRONIC RENAL FAILURE, HX CHF, HTN, DIABETES, ALF ANTI- COAG THERAPY. PT IS MORE AWAKE AND ALERT THIS MORNING. PT'S SISTER AT BEDSIDE ASKING IF PT CAN ADVANCE HER DIET. PLAN TO CONSULT SPEECH FOR BEDSIDE SWALLOW STUDY. PT HAS BEEN ON GENTLE IV HYDRATION WITH LOW DOSE IV LASIX, STRICT I&OS SINCE ADMISSION. POTASSIUM IS 4 THIS MORNING AND STABLE. PT HAS IMPROVING RENAL FUNCTION WITH BUN CREAT 26/2.29. PT HAS IMPROVING ALERTNESS AND DENIES ANY CHEST PAIN. PT BP 116/68 PLAN TO REPEAT AM LABS AND CHEST XRAY Past Medical Family Social History Allergies: Allergies No Known Drug Allergies Allergy (Verified 01/05/21 16:23) Vital Signs and I&O's Vital Signs: Vital Signs Temperature 98.6 F Temperature 98.6 F Pulse Rate [Right Brachial] 90 Pulse Rate [Right Brachial] 95 Respiratory Rate 20 Respiratory Rate 18 Blood Pressure [Left Arm] 116/68 Blood Pressure [Left Arm] 113/68 O2 Sat by Pulse Oximetry 99 Intake and Output: Intake & Output 06/17/23 06/18/23 06/19/23 06/20/23 11:59 11:59 11:59 11:59 Intake Total 2668 / 2668 2496 / 2496 2590 / 2590 1049 / 1049 Output Total 1675 / 1675 2250 / 2250 2900 / 2900 1200 / 1200 Balance 993 / 993 246 / 246 -310 / -310 -151 / -151 Physical Exam Oriented: Person Eyes: Normal Ear: Normal Throat: Dry Cardiovascular: Tachycardia and Edema : Normal Tenderness: Diffuse and Mild Skin: Decreased Turgur Musculoskeletal: Motor Deficit Mood Description: Flat Affect: Flat Speech Pattern: Appropriate and Delayed Laboratory and Diagnostics 06/19/23 05:49 06/19/23 05:49 Labs: Laboratory WBC 12.9 X10^3/uL (3.6-10.0) H 06/19/23 05:49 RBC 2.54 X10^6/uL (3.5-5.4) L 06/19/23 05:49 Hgb 7.9 g/dL (12.0-16.0) L 06/19/23 05:49 Hct 24.9 % (36.0-47.0) L 06/19/23 05:49 MCV 98.0 fL (80.0-100.0) 06/19/23 05:49 MCH 30.9 pg (27.0-34.0) 06/19/23 05:49 MCHC 31.5 g/dL (33.0-35.0) L 06/19/23 05:49 RDW 14.7 % (11.6-16.5) 06/19/23 05:49 Plt Count 195 X10^3/uL (150.0-450.0) 06/19/23 05:49 Plt Count Comment Adequate (ADEQUATE) 06/17/23 05:43 MPV 9.7 fL (7.4-11.0) 06/19/23 05:49 Neut % (Auto) 64.0 % (42.0-75.0) 06/19/23 05:49 Lymph % (Auto) 26.1 % (21.0-51.0) 06/19/23 05:49 Slope % (Auto) 5.7 % (0.0-13.0) 06/19/23 05:49 Eos % (Auto) 3.6 % (0.9-2.9) H 06/19/23 05:49 Baso % (Auto) 0.6 % (0.2-1.0) 06/19/23 05:49 Neut # (Auto) 8.3 x10^3/uL (2.2-4.8) H 06/19/23 05:49 Lymph # (Auto) 3.4 X10^3/uL (1.3-2.9) H 06/19/23 05:49 Slope # (Auto) 0.7 x10^3/uL (0.3-0.8) 06/19/23 05:49 Eos # (Auto) 0.5 x10^3/uL (0.0-0.2) H 06/19/23 05:49 Baso # (Auto) 0.1 X10^3/uL (0.0-0.1) 06/19/23 05:49 Absolute Nucleated RBC 0.0 /100WBC 06/19/23 05:49 Plt Morphology Comment Normal (NORMAL) 06/17/23 05:43 RBC Morphology Normal (NORMAL) 06/17/23 05:43 Sodium 135 mmol/L (136-145) L 06/19/23 05:49 Corrected Sodium TNP 06/19/23 05:49 Potassium 4.0 mmol/L (3.5-5.1) 06/19/23 05:49 Chloride 103 mmol/L (98-107) 06/19/23 05:49 Carbon Dioxide 25.1 mmol/L (21-32) 06/19/23 05:49 BUN 26 mg/dL (7-18) H 06/19/23 05:49 Creatinine 2.29 mg/dL (0.55-1.02) H 06/19/23 05:49 Est GFR (MDRD) Af Amer 27 (>60) L 06/19/23 05:49 Est GFR (MDRD) Non-Af 23 (>60) L 06/19/23 05:49 Glucose 95 mg/dL (65-99) 06/19/23 05:49 POC Glucose (mg/dL) 105 mg/dL (65-99) H 06/19/23 05:53 Calcium 8.1 mg/dL (8.5-10.1) L 06/19/23 05:49 Corrected Calcium 10.0 mg/dL (8.5-10.1) 06/19/23 05:49 Magnesium 2.0 mg/dL (2.0-2.9) 06/18/23 05:36 Iron 49 ug/dL (50-175) L 06/18/23 05:36 Total Bilirubin 0.20 mg/dL (0.2-1.0) 06/19/23 05:49 AST 18 Units/L (15-37) 06/19/23 05:49 ALT 11 Units/L (12-78) L 06/19/23 05:49 Alkaline Phosphatase 144 Units/L (46-116) H 06/19/23 05:49 Creatine Kinase 39 Units/L (26-192) 06/14/23 06:23 Troponin I High Sens 4.4 ng/L (4.0-60.0) 06/14/23 06:23 B-Natriuretic Peptide 102 pg/mL (0-79) H 06/14/23 06:23 Total Protein 5.9 g/dL (6.4-8.2) L 06/19/23 05:49 Albumin 1.6 g/dL (3.4-5.0) L 06/19/23 05:49 Globulin 4.3 g/dL (2.5-4.5) 06/19/23 05:49 Albumin/Globulin Ratio 0.4 Ratio (1.1-2.1) L 06/19/23 05:49 Specimen Type Catherized urine 06/13/23 18:17 Urine Color Yellow (YELLOW) 06/13/23 18:17 Urine Appearance Clear (CLEAR) 06/13/23 18:17 Urine pH 5.0 (5.0 - 8.0) 06/13/23 18:17 Ur Specific [place] 1.020 (1.000-1.030) 06/13/23 18:17 Urine Protein 1+ (NEGATIVE) 06/13/23 18:17 Urine Glucose (UA) Negative (NEGATIVE) 06/13/23 18:17 Urine Ketones Negative (NEGATIVE) 06/13/23 18:17 Urine Blood Negative (NEGATIVE) 06/13/23 18:17 Urine Nitrite Negative (NEGATIVE) 06/13/23 18:17 Urine Bilirubin Negative (NEGATIVE) 06/13/23 18:17 Urine Urobilinogen Normal (NORMAL) 06/13/23 18:17 Ur Leukocyte Esterase Negative (NEGATIVE) 06/13/23 18:17 Urine RBC None seen /HPF (0-3) 06/13/23 18:17 Urine WBC None seen /HPF (0-5) 06/13/23 18:17 Ur Squamous Epith Cells Negative /HPF (NEGATIVE) 06/13/23 18:17 Urine Bacteria Negative /HPF (NEGATIVE) 06/13/23 18:17 Urine Yeast Many /HPF (NEGATIVE) 06/13/23 18:17 Ur Culture Indicated? No/not indicated 06/13/23 18:17 Stl Occult Blood (IFOB) Negative (NEGATIVE) 06/18/23 10:30 Plan (1) Acute renal failure: Status: Acute (2) CHF (congestive heart failure): Status: Chronic Qualifiers: Heart failure chronicity: unspecified Heart failure type: unspecified Qualified Code(s): I50.9 - Heart failure, unspecified (3) Hypertension: Status: Chronic (4) Degenerative disc disease, lumbar: Status: Acute (5) Hyperkalemia: Status: Acute (6) Anemia: Status: Acute Plan: Continue the patient on Protonix 40 mg IV daily for GI protection.
[2023-06-19 19:44] LABS: BILIRUBIN,URINE NEGATIVE (NEGATIVE); BLOOD/HEMOGLOBIN,URINE 5+ (NEGATIVE); GLUCOSE, URINE NEGATIVE (NEGATIVE); KETONES,URINE NEGATIVE (NEGATIVE); LEUKOCYTE ESTERASE ,URINE 2+ (NEGATIVE); NITRITES,URINE POSITIVE (NEGATIVE); PROTEIN,URINE 3+ (NEGATIVE); UROBILINOGEN,URINE NORMAL (NORMAL)
[2023-06-19 19:45] LABS: APPEARANCE,URINE HAZY (CLEAR); COLOR,URINE YELLOW (YELLOW)
[2023-06-19 20:00] LABS: BACTERIA,URINE 2+ /HPF (NEGATIVE); GRANULAR CASTS,URINE FEW /LPF (NEGATIVE); HYALINE CASTS, URINE FEW /LPF (NEGATIVE); RBC,URINE 20-30 /HPF (0-3); SQUAMOUS EPITHELIAL CELL,UR RARE /HPF (NEGATIVE); TRANSITIONAL EPI CELLS,URINE FEW /HPF (NEGATIVE); YEAST,URINE MANY /HPF (NEGATIVE)
[2023-06-19] MEDS: NEURONTIN CAP 300 MG PO SCH (20:29)
[2023-06-19] MEDS: SNACK - Diabetic Appropriate PO SCH (20:30)
[2023-06-19] MEDS: ZOCOR TAB 40 MG PO SCH (20:30)
[2023-06-20] MEDS: SYNTHROID 112 mcg TAB PO SCH (05:33)
[2023-06-20] MEDS: NS 1,000 ML IV 1,000 ML IV SCH (05:33)
[2023-06-20 06:00] LABS: BASOPHILS % (AUTO) 0.4 % (0.2-1.0); EOSINOPHILS # (AUTO) 0.5 x10^3/uL (0.0-0.2); HEMATOCRIT 26.9 % (36.0-47.0); HEMOGLOBIN 8.5 g/dL (12.0-16.0); LYMPHOCYTES % (AUTO) 26.3 % (21.0-51.0); MEAN CORPUSCULAR HEMOGLOBIN 30.8 pg (27.0-34.0); MEAN CORPUSCULAR HGB CONC 31.6 g/dL (33.0-35.0); MEAN CORPUSCULAR VOLUME 97.7 fL (80.0-100.0); MEAN PLATELET VOLUME 9.9 fL (7.4-11.0); MONOCYTES # (AUTO) 0.6 x10^3/uL (0.3-0.8); MONOCYTES % (AUTO) 5.4 % (0.0-13.0); NEUTROPHILS # (AUTO) 7.4 x10^3/uL (2.2-4.8); NEUTROPHILS % (AUTO) 63.9 % (42.0-75.0); PLATELET COUNT 220 X10^3/uL (150.0-450.0); RED BLOOD COUNT 2.75 X10^6/uL (3.5-5.4); RED CELL DISTRIBUTION WIDTH 14.8 % (11.6-16.5); WHITE BLOOD COUNT 11.5 X10^3/uL (3.6-10.0)
--- NOTE | 2023-06-20 06:00 | RAD ---
HISTORYCHF Relevant Clinical InformationSTUDYCHEST, 1 [id number]/2023FINDINGSThe trachea is midline. The cardiac silhouette is mildly enlarged.. The lungs are clear without focal infiltrate or effusion. The bony thorax is unremarkable.IMPRESSIONMild cardiomegalyNo active cardiopulmonary disease.Electronically signed by: Fili Jerome (Jun 20, 2023 05:58:53)
[2023-06-20 06:12] LABS: ALANINE AMINOTRANSFERASE 17 Units/L (12-78); ALBUMIN 1.8 g/dL (3.4-5.0); ALKALINE PHOSPHATASE 155 Units/L (46-116); ASPARTATE AMINO TRANSFERASE 22 Units/L (15-37); BLOOD UREA NITROGEN 22 mg/dL (7-18); CALCIUM 8.2 mg/dL (8.5-10.1); CARBON DIOXIDE 25.4 mmol/L (21-32); CHLORIDE 104 mmol/L (98-107); CREATININE 2.05 mg/dL (0.55-1.02); GLUCOSE 106 mg/dL (65-99); POTASSIUM 3.7 mmol/L (3.5-5.1); SODIUM 138 mmol/L (136-145); TOTAL PROTEIN 6.3 g/dL (6.4-8.2); eGFR NON BLACK RACES 26 (>60)
[2023-06-20] MEDS ORDERED: CONSULT PHARMACY - POTASSIUM & MAGNESIUM XX SCH (07:00)
[2023-06-20] MEDS ORDERED: NS 1,000 ML IV 1,000 ML with MAGNESIUM SULFATE 50% INJ VIAL 1 G IV SCH ×2 (08:00)
[2023-06-20] MEDS ORDERED: K-DUR TAB 20 MEQ PO SCH (09:00)
[2023-06-20] MEDS: DILANTIN CAP 100 MG EXT REL PO SCH (09:02)
[2023-06-20] MEDS: ZYLOPRIM PO SCH (09:02)
[2023-06-20] MEDS: COLACE CAP 100 MG PO SCH (09:02)
[2023-06-20] MEDS: VITAMIN D3 125 mcg (5,000 UNITS) PO SCH (09:02)
[2023-06-20] MEDS: LASIX IVP SCH (09:02)
[2023-06-20] MEDS: HEMOCYTE-PLUS PO SCH (09:02)
[2023-06-20] MEDS: PROTONIX TAB 40 MG PO SCH (09:02)
[2023-06-20] MEDS: FOLIC ACID TAB 1 MG PO SCH (09:03)
[2023-06-20] MEDS: MIRAPEX TAB 0.25 MG PO SCH (09:03)
[2023-06-20] MEDS: KEPPRA TAB 500 MG PO SCH (09:03)
[2023-06-20] MEDS: CELEXA PO SCH (09:03)
[2023-06-20 10:21] VITALS: BP 117/62; PULSE 84; RESP 18; TEMP 98.5; O2SAT 97
== END 2023-06-20 12:30 | DRG 683 ==
LOC: ER 17:57 → U 17:57 → OBSVTOIN 20:12 → U 20:12 → MED/SURG 06-14 11:40
PROVIDERS: ADMIT Internal Medicine; ATTEND Internal Medicine
DX: E78.5 Hyperlipidemia, unspecified; N18.9 Chronic kidney disease, unspecified; R41.82 Altered mental status, unspecified; B96.1 Klebsiella pneumoniae [K. pneumoniae] as the cause of diseases classified elsewhere; R13.11 Dysphagia, oral phase; D64.89 Other specified anemias; E03.8 Other specified hypothyroidism; N17.8 Other acute kidney failure; I25.10 Atherosclerotic heart disease of native coronary artery without angina pectoris; E11.65 Type 2 diabetes mellitus with hyperglycemia; R00.0 Tachycardia, unspecified; R79.89 Other specified abnormal findings of blood chemistry; Z79.01 Long term (current) use of anticoagulants; I11.0 Hypertensive heart disease with heart failure; N39.0 Urinary tract infection, site not specified; Z79.899 Other long term (current) drug therapy; K21.9 Gastro-esophageal reflux disease without esophagitis